=== PATIENT | female | born 1985 | race Hispanic/Latino ===

== ENCOUNTER 2018-10-17 14:22 | Emergency (ER) | payer SELFPAY ==
[2018-10-17] MEDS ORDERED: NA CHLORIDE 0.9% 1,000 ML ONE (15:11)
[2018-10-17] MEDS ORDERED: MORPHINE 2 MG/ML SYR ONE (15:11)
[2018-10-17] MEDS ORDERED: ONDANSETRON 4 MG/2 ML VIAL ONE (15:11)
[2018-10-17 15:34] LABS: ALT/SGPT 22 U/L (12-78); AST/SGOT 16 U/L (15-37); Albumin 4.2 g/dL (3.4-5.0); Alkaline Phosphatase 80 U/L (45-117); BUN Blood Urea Nitrogen 10 mg/dL (7-18); Bicarbonate 26 mmol/L (21-32); Bilirubin Direct 0.1 mg/dL (0-0.2); Bilirubin Total 0.4 mg/dL (0.2-1.0); Glucose Level 91 mg/dL (74-106); Lipase 58 U/L (73-393); Potassium 4.1 mmol/L (3.5-5.1); Sodium Level 142 mmol/L (136-145)
[2018-10-17 15:38] LABS: Absolute Lymphocytes (CBC) 1.4 K/uL (0.7-4.9); Absolute Monocytes 0.5 K/uL (0.1-1.3); Absolute Neutrophil 3.9 K/uL (1.8-8.0); Basophils % 0.8 % (0-1.3); Eosinophils % 3.5 % (0-4.4); Hematocrit 36.7 % (36.0-45.0); Monocytes % 8.2 % (3.3-12.3); RBC Red Blood Cell Count 4.75 M/uL (3.86-4.86)
[2018-10-17 17:40] LABS: Urine Blood 1+ (NEG); Urine Glucose NEGATIVE (NEG); Urine Protein TRACE (NEG); Urine pH 7.5 (5.0-7.0)
--- NOTE | 2018-10-17 17:52 | RAD REPORT ---
EXAM DESCRIPTION: CT - Abdomen Pelvis W Contrast - 10/17/2018 5:36 pm CLINICAL HISTORY: Abdominal pain. COMPARISON: 2016 TECHNIQUE: Computed axial tomography of the abdomen and pelvis was obtained. 100 cc Isovue-300 is ad ministered intravenously. Oral contrast was given. All CT scans are performed using dose optimization technique as appropriate and may include automated exposure control or mA/KV adjustment according to patient size. FINDINGS: The liver, spleen, pancreas, adrenals and kidneys appear unremarkable. The appendix is normal caliber. There is no evidence of diverticulitis An adnexal mass is not noted. Tiny umbilical hernia IMPRESSION: No acute abnormality displayed
--- NOTE | 2018-10-17 17:55 | ER ---
Nurse's Notes [facility] Name: Kacie Naqvi Age: 32 yrs Sex: Female : 1985 Arrival Date: 10/17/2018 Time: 14:25 Bed 23 Private MD: Diagnosis: Generalized abdominal pain Presentation: 10/17 14:28 Presenting complaint: Patient states: Sharp stabbing pain that began around 1PM with la1 nausea. Transition of care: patient was not received from another setting of care. Onset of symptoms was October 17, 2018. Risk Assessment: Do you want to hurt yourself or someone else? Patient reports no desire to harm self or others. Initial Sepsis Screen: Does the patient meet any 2 criteria? No. Patient's initial sepsis screen is negative. Does the patient have a suspected source of infection? No. Patient's initial sepsis screen is negative. Care prior to arrival: None. 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 - Social history:: Smoking status: Patient/guardian denies using tobacco. - Ebola Screening: : No symptoms or risks identified at this time. Screenin:47 Abuse screen: Denies threats or abuse. Denies injuries from another. Nutritional rv screening: No deficits noted. Tuberculosis screening: No symptoms or risk factors identified. Fall Risk None identified. Assessment: 14:46 General: Appears in no apparent distress. uncomfortable, Behavior is calm, cooperative. rv Pain: Complains of pain in right lower quadrant Pain radiates to lumbar area, left low back and right low back. Neuro: Level of Consciousness is awake, alert, obeys commands, Oriented to person, place, time, situation. Cardiovascular: Capillary refill < 3 seconds. Respiratory: Airway is patent. GI: Bowel sounds present X 4 quads. Abd is soft Abdomen is tender to palpation in right lower quadrant. : No signs and/or symptoms were reported regarding the genitourinary system. EENT: No signs and/or symptoms were reported regarding the EENT system. Derm: Skin is intact. Musculoskeletal: No signs and/or symptoms reported regarding the musculoskeletal system. 16:00 Reassessment: Patient appears in no apparent distress at this time. Patient and/or rv family updated on plan of care and expected duration. Pain level reassessed. Patient is alert, oriented x 3, equal unlabored respirations, skin warm/dry/pink. FINISHED ORAL CONTRAST. Vital Signs: 14:29 BP 110 / 73; Pulse 79; Resp 20; Temp 97.4(O); Pulse Ox 100% on R/A; Weight 58.97 kg; la1 Height 4 ft. 11 in. (149.86 cm); 15:30 BP 119 / 81; Pulse 77; Resp 17; Pulse Ox 100% on R/A; rv 16:14 BP 108 / 72; Pulse 66; Resp 16; Pulse Ox 100% ; lt1 17:00 BP 103 / 72 RA; Pulse 65; Resp 16 S; Pulse Ox 100% on R/A; rv 18:00 BP 105 / 63 RA; Pulse 69; Resp 15 S; Pulse Ox 98% on R/A; rv 14:29 Body Mass Index 26.26 (58.97 kg, 149.86 cm) la1 ED Course: 14:25 Patient arrived in ED. mr 14:29 Triage completed. la1 14:30 Arm band placed on right wrist. la1 14:32 [facility]C [facility]. kb 14:32 Kirk Cook MD is Attending Physician. kb 14:48 Patient has correct armband on for positive identification. Bed in low position. Call rv light in reach. Side rails up X 1. Adult w/ patient. Pulse ox on. NIBP on. 15:00 Radiology exam delayed due to lab results not completed at this time. (BUN/Creatinine) vr IV insertion attempt and/or patient not having appropriate IV at this time. 15:00 Inserted saline lock: 22 gauge in left antecubital area, using aseptic technique. Blood rv collected. 17:36 CT Abd/Pelvis - W/Contrast In Process Unspecified. EDMS 17:41 CT completed. Patient tolerated procedure well. Patient moved back from CT. vr 18:15 No provider procedures requiring assistance completed. IV discontinued, bleeding rv controlled, No redness/swelling at site. Pressure dressing applied. Administered Medications: 15:00 Drug: NS 0.9% 1000 ml Route: IV; Rate: 1000 ml; Site: left antecubital; rv 16:25 Follow up: IV Status: Completed infusion rv 15:03 Drug: Zofran 4 mg Route: IVP; Site: left antecubital; rv 16:25 Follow up: Response: No adverse reaction; Nausea is decreased rv 15:05 Drug: morphine 2 mg Route: IVP; Site: left antecubital; rv 16:25 Follow up: Response: Pain is decreased rv Outcome: 17:55 Discharge ordered by . kb 18:16 Discharged to home ambulatory. rv 18:16 Condition: good 18:16 Discharge instructions given to patient, Instructed on discharge instructions, follow up and referral plans. medication usage, Demonstrated understanding of instructions, follow-up care, medications, Prescriptions given X 2. 18:16 Patient left the ED. rv Signatures: Dispatcher [employer] EDMS Pam Katz, GELACIO LUGOP-Martha Yanes mr Hendrickson, Tegan vr Robert Hardin, RN RN la1 Edwin Jiménez RN Jud Morris Caryl
--- NOTE | 2018-10-17 17:55 | EDPHYS ---
Physician Documentation [facility] Name: Kacie Naqvi Age: 32 yrs Sex: Female : 1985 Arrival Date: 10/17/2018 Time: 14:25 Bed 23 Private MD: ED Physician Kirk Cook HPI: 10/17 16:07 This 32 yrs old Female presents to ER via Ambulatory with complaints of kb Abdominal Pain, Nausea. 16:07 The patient presents with abdominal pain right lower quadrant. Onset: The kb symptoms/episode began/occurred today, at 13:00. The symptoms do not radiate. Associated signs and symptoms: Pertinent positives: diarrhea, fever, nausea. The symptoms are described as constant, sharp. Modifying factors: The symptoms are alleviated by nothing, the symptoms are aggravated by pressure. Severity of pain: At its worst the pain was moderate in the emergency department the pain is unchanged. The patient has not experienced similar symptoms in the past. The patient has not recently seen a physician. Pt reports diarrhea once last night with fever and chills. Reports abd pain and nausea started at 1300 today.. 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 - Social history:: Smoking status: Patient/guardian denies using tobacco. - Ebola Screening: : No symptoms or risks identified at this time. ROS: 16:06 ENT: Negative for injury, pain, and discharge, Neck: Negative for injury, pain, and kb swelling, Cardiovascular: Negative for chest pain, palpitations, and edema, Respiratory: Negative for shortness of breath, cough, wheezing, and pleuritic chest pain, Back: Negative for injury and pain, MS/Extremity: Negative for injury and deformity, Skin: Negative for injury, rash, and discoloration, Neuro: Negative for headache, weakness, numbness, tingling, and seizure. 16:06 Constitutional: Positive for chills, fever, Negative for body aches, fatigue, malaise, poor PO intake, weight loss. 16:06 Abdomen/GI: Positive for abdominal pain, nausea, diarrhea. Exam: 16:06 Constitutional: This is a well developed, well nourished patient who is awake, alert, kb and in no acute distress. Head/Face: Normocephalic, atraumatic. ENT: Nares patent. No nasal discharge, no septal abnormalities noted. Tympanic membranes are normal and external auditory canals are clear. Oropharynx with no redness, swelling, or masses, exudates, or evidence of obstruction, uvula midline. Mucous membranes moist. Neck: Trachea midline, no thyromegaly or masses palpated, and no cervical lymphadenopathy. Supple, full range of motion without nuchal rigidity, or vertebral point tenderness. No Meningismus. Chest/axilla: Normal chest wall appearance and motion. Nontender with no deformity. No lesions are appreciated. Cardiovascular: Regular rate and rhythm with a normal S1 and S2. No gallops, murmurs, or rubs. Normal PMI, no JVD. No pulse deficits. Respiratory: Lungs have equal breath sounds bilaterally, clear to auscultation and percussion. No rales, rhonchi or wheezes noted. No increased work of breathing, no retractions or nasal flaring. Back: No spinal tenderness. No costovertebral tenderness. Full range of motion. Skin: Warm, dry with normal turgor. Normal color with no rashes, no lesions, and no evidence of cellulitis. MS/ Extremity: Pulses equal, no cyanosis. Neurovascular intact. Full, normal range of motion. Neuro: Awake and alert, GCS 15, oriented to person, place, time, and situation. Cranial nerves II-XII grossly intact. Motor strength 5/5 in all extremities. Sensory grossly intact. Cerebellar exam normal. Normal gait. 16:06 Abdomen/GI: Inspection: abdomen appears normal, Bowel sounds: normal, in all quadrants, Palpation: soft, in all quadrants, mild abdominal tenderness, in the right upper quadrant, moderate abdominal tenderness, in the right lower quadrant. Vital Signs: 14:29 BP 110 / 73; Pulse 79; Resp 20; Temp 97.4(O); Pulse Ox 100% on R/A; Weight 58.97 kg; la1 Height 4 ft. 11 in. (149.86 cm); 15:30 BP 119 / 81; Pulse 77; Resp 17; Pulse Ox 100% on R/A; rv 16:14 BP 108 / 72; Pulse 66; Resp 16; Pulse Ox 100% ; lt1 17:00 BP 103 / 72 RA; Pulse 65; Resp 16 S; Pulse Ox 100% on R/A; rv 18:00 BP 105 / 63 RA; Pulse 69; Resp 15 S; Pulse Ox 98% on R/A; rv 14:29 Body Mass Index 26.26 (58.97 kg, 149.86 cm) la1 MDM: 14:43 Patient medically screened. kb 16:06 Data reviewed: vital signs, nurses notes. Data interpreted: Pulse oximetry: on room air kb is 100 %. Interpretation: normal. 17:54 Counseling: I had a detailed discussion with the patient and/or guardian regarding: the kb historical points, exam findings, and any diagnostic results supporting the discharge/admit diagnosis, lab results, radiology results, the need for outpatient follow up, a family practitioner, to return to the emergency department if symptoms worsen or persist or if there are any questions or concerns that arise at home. 10/17 14:48 Order name: Basic Metabolic Panel; Complete Time: 15:35 kb 10/17 14:48 Order name: CBC with Diff; Complete Time: 16:05 kb 10/17 14:48 Order name: Hepatic Function; Complete Time: 15:35 kb 10/17 14:48 Order name: Lipase; Complete Time: 15:35 kb 10/17 14:48 Order name: Urine Dipstick--Ancillary (enter results); Complete Time: 17:44 ms 10/17 14:48 Order name: Urine --Ancillary (enter results); Complete Time: 17:44 ms 10/17 14:48 Order name: IV Saline Lock; Complete Time: 15:10 kb 10/17 14:48 Order name: Labs collected and sent; Complete Time: 15:10 kb 10/17 14:48 Order name: CT Abd/Pelvis - W/Contrast; Complete Time: 17:53 kb Administered Medications: 15:00 Drug: NS 0.9% 1000 ml Route: IV; Rate: 1000 ml; Site: left antecubital; rv 16:25 Follow up: IV Status: Completed infusion rv 15:03 Drug: Zofran 4 mg Route: IVP; Site: left antecubital; rv 16:25 Follow up: Response: No adverse reaction; Nausea is decreased rv 15:05 Drug: morphine 2 mg Route: IVP; Site: left antecubital; rv 16:25 Follow up: Response: Pain is decreased rv Disposition: 10/17/18 17:55 Discharged to Home. Impression: Generalized abdominal pain. - Condition is Stable. - Discharge Instructions: Abdominal Pain, Adult, [id number]. - Prescriptions for Bentyl 20 mg Oral Tablet - take 1 tablet by ORAL route every 6 hours As needed; 20 tablet. Zofran 4 mg Oral Tablet - take 1 tablet by ORAL route every 6 hours As needed; 20 tablet. - Medication Reconciliation Form, Thank You Letter, Antibiotic Education, Prescription Opioid Use form. - Follow up: Emergency Department; When: As needed; Reason: Worsening of condition. Follow up: Private Physician; When: 2 - 3 days; Reason: Recheck today's complaints, Continuance of care, Re-evaluation by your physician. Addendum: 10/21/2018 21:54 Co-signature as Attending Physician, Kirk Cook MD. g s Signatures: Dispatcher [employer] EDAZ Pam Katz, HARDBOARD COATING MACHINE OPERATOR-C HARDBOARD COATING MACHINE OPERATOR-CkRobert Haque RN RN la1 Kirk Cook MD MD Edwin Jiménez, RN RN rv Corrections: (The following items were deleted from the chart) 10/17 18:16 17:55 10/17/2018 17:55 Discharged to Home. Impression: Generalized abdominal pain. rv Condition is Stable. Forms are Medication Reconciliation Form, Thank You Letter, Antibiotic Education, Prescription Opioid Use. Follow up: Emergency Department; When: As needed; Reason: Worsening of condition. Follow up: Private Physician; When: 2 - 3 days; Reason: Recheck today's complaints, Continuance of care, Re-evaluation by your physician. kb
[2018-10-17 19:21] VITALS: TEMP 97.4
[2018-10-17 19:26] VITALS: BP 105/63; O2SAT 98
== END 2018-10-17 18:16 | disposition home or self-care (01) ==
LOC: ER 14:22
DX: R10.84 Generalized abdominal pain (principal); J45.909 Unspecified asthma, uncomplicated
CPT/HCPCS: 36415; 74177; 80048; 80076; 81003; 81025; 83690; 85025; 96361; 96374; 96375; 99284; J2270; J2405; J7030; Q9967

== ENCOUNTER 2018-11-11 20:23 | Emergency (ER) | payer BC, SELFPAY ==
[2018-11-11 21:28] LABS: Absolute Lymphocytes (CBC) 1.6 K/uL (0.7-4.9); Absolute Monocytes 0.4 K/uL (0.1-1.3); Absolute Neutrophil 4.5 K/uL (1.8-8.0); Basophils % 0.5 % (0-1.3); Eosinophils % 3.5 % (0-4.4); Hematocrit 34.5 % (36.0-45.0); Lymphocytes % 23.8 % (15.3-44.8); MPV 9.1 fL (7.6-11.3); Monocytes % 6.2 % (3.3-12.3); RBC Red Blood Cell Count 4.39 M/uL (3.86-4.86)
[2018-11-11 21:38] LABS: Urine Blood 3+ (NEG); Urine Glucose NEGATIVE (NEG); Urine Protein TRACE (NEG); Urine Specific Gravity 1.025 (1.005-1.030); Urine pH 6.5 (5.0-7.0)
[2018-11-11 21:45] LABS: BUN Blood Urea Nitrogen 16 mg/dL (7-18); Bicarbonate 28 mmol/L (21-32); Glucose Level 100 mg/dL (74-106); Potassium 3.7 mmol/L (3.5-5.1); Sodium Level 140 mmol/L (136-145)
[2018-11-11 21:46] LABS: HCG, Quantitative < 1 mIU/mL (1-3)
--- NOTE | 2018-11-11 22:51 | EDPHYS ---
Physician Documentation [facility] Name: Kacie Naqvi Age: 32 yrs Sex: Female : 1985 Arrival Date: 11/11/2018 Time: 20:25 Bed 14 Private MD: ED Physician Jono Sandoval HPI: 11/11 21:05 This 32 yrs old Female presents to ER via Ambulatory with complaints of cp Vaginal Bleeding. 21:05 The patient presents with vaginal bleeding that is light, with no clots. cp 21:05 Onset: The symptoms/episode began/occurred today. Associated signs and symptoms: cp Pertinent negatives: diarrhea, fever, urinary frequency. Severity of symptoms: in the emergency department the symptoms are unchanged, despite home interventions. 21:05 The patient's method of control includes tubal ligation. 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 - Social history:: Smoking status: Patient/guardian denies using tobacco. - Ebola Screening: : Patient denies travel to an Ebola-affected area in the 21 days before illness onset. ROS: 21:10 Constitutional: Negative for body aches, chills, fever, poor PO intake. cp 21:10 Eyes: Negative for injury, pain, redness, and discharge. cp 21:10 ENT: Negative for drainage from ear(s), ear pain, sore throat, difficulty swallowing, difficulty handling secretions. 21:10 Cardiovascular: Negative for chest pain, edema, palpitations. 21:10 Respiratory: Negative for cough, shortness of breath, wheezing. 21:10 Abdomen/GI: Positive for abdominal cramps, Negative for vomiting, diarrhea, constipation, anorexia, black/tarry stool, rectal bleeding. 21:10 : Positive for vaginal bleeding, Negative for urinary symptoms. 21:10 Neuro: Negative for altered mental status, dizziness, syncope, weakness. 21:10 All other systems are negative. Exam: 21:15 Constitutional: The patient appears in no acute distress, alert, awake, non-toxic, well cp developed, well nourished. 21:15 Head/Face: Normocephalic, atraumatic. cp 21:15 Eyes: Periorbital structures: appear normal, Conjunctiva: normal, no exudate, no injection, Sclera: no appreciated abnormality, Lids and lashes: appear normal, bilaterally. 21:15 ENT: External ear(s): are unremarkable, Nose: is normal, Mouth: Lips: moist, Oral mucosa: pink and intact, moist, Posterior pharynx: Airway: no evidence of obstruction, patent. 21:15 Chest/axilla: Inspection: normal, Palpation: is normal. 21:15 Cardiovascular: Rate: normal, Rhythm: regular. 21:15 Respiratory: the patient does not display signs of respiratory distress, Respirations: normal, no use of accessory muscles, no retractions, no splinting, no tachypnea, labored breathing, is not present, Breath sounds: are clear throughout, no decreased breath sounds, no stridor, no wheezing. 21:15 Abdomen/GI: Inspection: abdomen appears normal, Bowel sounds: active, all quadrants, Palpation: abdomen is soft and non-tender, in all quadrants, voluntary guarding, is not appreciated, involuntary guarding, is not appreciated. 21:15 Back: CVA tenderness, is absent. 22:37 : Pelvic Exam: The exam is refused by the patient/guardian. The risks and cp consequences are understood by the patient. Vital Signs: 20:37 BP 129 / 83; Pulse 99; Resp 18; Temp 98.7; Pulse Ox 98% on R/A; Weight 61.23 kg (R); aj1 Height 4 ft. 11 in. (149.86 cm) (R); Pain 2/10; 21:00 BP 121 / 79; Pulse 85; Resp 18; Pulse Ox 98% on R/A; lp1 22:15 BP 105 / 72; Pulse 87; Resp 16; Pulse Ox 99% on R/A; lp1 22:45 BP 115 / 76; Pulse 84; Resp 16; Pulse Ox 98% on R/A; lp1 20:37 Body Mass Index 27.27 (61.23 kg, 149.86 cm) aj1 MDM: 20:48 Patient medically screened. cp 21:15 Differential diagnosis: ectopic , endometriosis, menometrorrhagia, ovarian cp cyst, pelvic inflammatory disease, ruptured ectopic , uterine fibroids, urinary tract infection. 22:48 Data reviewed: vital signs, nurses notes, lab test result(s), radiologic studies, cp ultrasound, and as a result, I will discharge patient. 22:50 Counseling: I had a detailed discussion with the patient and/or guardian regarding: the cp historical points, exam findings, and any diagnostic results supporting the discharge/admit diagnosis, lab results, radiology results, the need for outpatient follow up, an OB/Gyne specialist, to return to the emergency department if symptoms worsen or persist or if there are any questions or concerns that arise at home. 11/11 21:00 Order name: Urine Dipstick--Ancillary (enter results); Complete Time: 21:44 cm6 11/11 21:00 Order name: Urine --Ancillary (enter results); Complete Time: 21:44 cm6 11/11 21:02 Order name: Quantitative Hcg; Complete Time: 22:30 cp 11/11 21:02 Order name: Basic Metabolic Panel; Complete Time: 22:30 cp 11/11 21:02 Order name: CBC with Diff; Complete Time: 21:44 cp 11/11 21:44 Interpretation: Normal except: HGB 11.4; HCT 34.5; MCV 78.5; MCH 26.1. cp 11/11 21:26 Order name: US Transvaginal Study (Probe) 11/11 21:02 Order name: IV Saline Lock; Complete Time: 21:24 cp 11/11 21:02 Order name: Labs collected and sent; Complete Time: 21:24 cp 11/11 21:02 Order name: NPO; Complete Time: 21:10 cp 11/11 21:02 Order name: Urine Dipstick-Ancillary (obtain specimen); Complete Time: 21:07 cp Administered Medications: No medications were administered Disposition: 11/12 07:00 Co-signature as Attending Physician, Jono Sandoval MD I agree with the assessment and apoorva plan of care. Disposition: 11/11/18 22:50 Discharged to Home. Impression: Abnormal uterine and vaginal bleeding, unspecified. - Condition is Stable. - Discharge Instructions: Abnormal Uterine Bleeding. - Medication Reconciliation Form, Thank You Letter, Antibiotic Education, Prescription Opioid Use form. - Follow up: Private Physician; When: 2 - 3 days; Reason: Recheck today's complaints. - Problem is new. - Symptoms are unchanged. Signatures: Dispatcher [employer] EDLoren Muse, RN RN aj1 Jono Sandoval MD MD cha Pena, Laura, RN RN lp1 Jono Asencio PA PA cp Corrections: (The following items were deleted from the chart) 11/11 23:16 22:50 11/11/2018 22:50 Discharged to Home. Impression: Abnormal uterine and vaginal lp1 bleeding, unspecified. Condition is Stable. Forms are Medication Reconciliation Form, Thank You Letter, Antibiotic Education, Prescription Opioid Use. Follow up: Private Physician; When: 2 - 3 days; Reason: Recheck today's complaints. Problem is new. Symptoms are unchanged. cp
--- NOTE | 2018-11-11 22:51 | ER ---
Nurse's Notes [facility] Name: Kacie Naqvi Age: 32 yrs Sex: Female : 1985 Arrival Date: 11/11/2018 Time: 20:25 Bed 14 Private MD: Diagnosis: Abnormal uterine and vaginal bleeding, unspecified Presentation: 11/11 20:35 Presenting complaint: Patient states: "I was at [employer] and I just started bleeding, its aj1 not my period because I just had it a week ago, but also my period wasn't normal. It was shorter than normal, and it wasn't as heavy." Reports vaginal bleeding started today less than 10 minutes ago. Reports light vaginal bleeding. Transition of care: patient was not received from another setting of care. Onset of symptoms was November 11, 2018. Risk Assessment: Do you want to hurt yourself or someone else? Patient reports no desire to harm self or others. Initial Sepsis Screen: Does the patient meet any 2 criteria? No. Patient's initial sepsis screen is negative. Does the patient have a suspected source of infection? No. Patient's initial sepsis screen is negative. Care prior to arrival: None. 20:35 Method Of Arrival: Ambulatory aj1 20:35 Acuity: DEIRDRE 4 aj1 Triage Assessment: 20:37 General: Appears in no apparent distress. comfortable, Behavior is calm, cooperative, aj1 appropriate for age. Pain: Complains of pain in pelvis Pain currently is 2 out of 10 on a pain scale. Quality of pain is described as crampy. Neuro: Level of Consciousness is awake, alert, obeys commands. Cardiovascular: Patient's skin is warm and dry. Respiratory: Airway is patent Respiratory effort is even, unlabored, Respiratory pattern is regular, symmetrical. : Reports vaginal bleeding that is light flow, for the past 10 minutes. 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 - Social history:: Smoking status: Patient/guardian denies using tobacco. - Ebola Screening: : Patient denies travel to an Ebola-affected area in the 21 days before illness onset. Screenin:04 Abuse screen: Denies threats or abuse. Denies injuries from another. Nutritional lp1 screening: No deficits noted. Tuberculosis screening: No symptoms or risk factors identified. Fall Risk None identified. Assessment: 21:01 General: Appears in no apparent distress. Behavior is calm, cooperative, appropriate lp1 for age. Pain: Complains of pain in suprapubic area Quality of pain is described as crampy. Neuro: Level of Consciousness is awake, alert, obeys commands. Cardiovascular: Patient's skin is warm and dry. Respiratory: Respiratory effort is even, unlabored. GI: Abdomen is non-distended. : Reports vaginal bleeding that is spotty. EENT: No deficits noted. Derm: Skin is pink, warm \\T\\ dry. Musculoskeletal: No deficits noted. 22:10 Reassessment: Patient appears in no apparent distress at this time. Patient is alert, lp1 oriented x 3, equal unlabored respirations, skin warm/dry/pink. Patient returned from CT at this time. Vital Signs: 20:37 BP 129 / 83; Pulse 99; Resp 18; Temp 98.7; Pulse Ox 98% on R/A; Weight 61.23 kg (R); aj1 Height 4 ft. 11 in. (149.86 cm) (R); Pain 2/10; 21:00 BP 121 / 79; Pulse 85; Resp 18; Pulse Ox 98% on R/A; lp1 22:15 BP 105 / 72; Pulse 87; Resp 16; Pulse Ox 99% on R/A; lp1 22:45 BP 115 / 76; Pulse 84; Resp 16; Pulse Ox 98% on R/A; lp1 20:37 Body Mass Index 27.27 (61.23 kg, 149.86 cm) aj1 ED Course: 20:25 Patient arrived in ED. am2 20:37 Triage completed. aj1 20:37 Arm band placed on. aj1 20:40 Clarice Cordero RN is Primary Nurse. lp1 20:48 Jono Asencio PA is PHCP. cp 20:48 Jono Sandoval MD is Attending Physician. cp 21:04 Patient has correct armband on for positive identification. Placed in gown. lp1 21:24 Inserted saline lock: 20 gauge in right antecubital area, using aseptic technique. lp1 Blood collected. By BLUE Garzon. 21:52 Patient taken to ultrasound. via wheelchair. lp1 21:56 US Transvaginal Study (Probe) In Process Unspecified. EDMS 23:00 No provider procedures requiring assistance completed. IV discontinued, No lp1 redness/swelling at site. Pressure dressing applied. Administered Medications: No medications were administered Outcome: 22:50 Discharge ordered by MD. cp 23:00 Discharged to home ambulatory. lp1 23:00 Condition: good 23:00 Discharge instructions given to patient, Instructed on discharge instructions, follow up and referral plans. Demonstrated understanding of instructions, follow-up care. 23:16 Patient left the ED. lp1 Signatures: Dispatcher [employer] EDMS Loren Jane RN RN aj1 Clarice Cordero RN RN lp1 Jono Asencio PA PA Francia Lamar
[2018-11-11 23:54] VITALS: TEMP 98.7
[2018-11-11 23:58] VITALS: BP 115/76; O2SAT 98
--- NOTE | 2018-11-12 06:59 | RAD REPORT ---
EXAM DESCRIPTION: US - Transvaginal Study Probe - 11/11/2018 9:55 pm CLINICAL HISTORY: Pelvic pain, vaginal bleeding Preliminary findings provided the time of the study. COMPARISON: CT examination October 17, 2018 TECHNIQUE: Endovaginal sonography was performed. FINDINGS: Endometrium is 6 mm in thickness. No focal endometrial polyp or mass seen. No myometrial m ass. Uterus is 7.4 x 5.0 x 5.1 cm. No blood or fluid in the cul de sac. Left ovary is normal size and demonstrates small cysts or follicles. No dominant solid or cystic left ovarian or left adnexal finding. Right ovary was nonvisualized. No right adnexal mass. CT study shows far lateral positioning of the r ight ovary. No right ovarian mass or abnormality seen at that time. IMPRESSION: Uterus, left ovary and left adnexa unremarkable. Nonvisualization of the right ovary. No right adnexal mass.
== END 2018-11-11 23:16 | disposition home or self-care (01) ==
LOC: ER 20:23
DX: N93.9 Abnormal uterine and vaginal bleeding, unspecified (principal)
CPT/HCPCS: 36415; 76830; 80048; 81003; 81025; 84702; 85025; 99284

== ENCOUNTER 2022-04-21 17:37 | Emergency (ER) | payer OTHER, SELFPAY ==
[2022-04-21] MEDS ORDERED: DIAZEPAM 10 MG/2 ML INJ SYRINGE ONE (18:20)
[2022-04-21] MEDS ORDERED: dexAMETHasone 10 MG/ML VIAL ONE (18:21)
[2022-04-21] MEDS ORDERED: KETOROLAC 30 MG/ML INJ ONE (18:21)
--- OUTSIDE RECORDS SUMMARY | 2022-04-21 18:31 | XMS REPORT | Continuity of Care Document ---
:[address] [facility] t Address [address] [place] [address] [address]. [address] [place] [address] Care Team Providers Name Role Phone Shefali Gayle Attending Clinician Payers Payer Name Policy Type Policy Number Effective Date Expiration Date Leonard CAMPOS II [id number] 2015 00:00:00 Problems Condition Condition Condition Status Onset Resolution Last Treating Co mments Source Name Details Category Date Date Treatment Clinician Date Anemia of Anemia of Disease Active 2015-07 Uni vers mother in mother in 0-21 [place] dical condition condition Bran ch Disease Active 2015-07 U nivers care and care and 0-21 [place] of examin[place] of [place] of 00 Medical lactating lactating Bran ch mother mother History of History of Disease Active U nivers tubal tubal 7-08 ity of ligation ligation 00:00: [place] [facility] Asthma Asthma Disease Active Overview: Univer s 4-07 ICD10 ity of 00:00: Diagnosis [place] 00 Term 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 Hand Branch Utility Generalize Generalize Disease Active U nivers d anxiety d anxiety 4-07 ity of disorder disorder 00:00: [place] 00 Medical Branch Allergies, Adverse Reactions, Alerts Allergy Allergy Status Severity Reaction(s) Onset Inactive Treating Comm ents Source Name Type Date Date Clinician Latex Propensi Active Rash Univers ty to 04-22 ity of adverse 00:00: [place] reaction 00 Medical s Branch LATEX DRUG Active Rash Univers INGREDI 04-22 ity of 00:00: [place] 00 Medical Branch Social History Social Habit Start Date Stop Date Quantity Comments Source Sex Assigned At [facility] [place] [facility] [place] [facility] Alcohol intake 2017-04-29 2017-04-29 University of 00:00:00 00:00:[address] [facility] Alcohol Comment 2014-10-31 2014-10-31 socially only Univer sity of 00:00:00 00:00:00 prior to [facility] Smoking Status Start Date Stop Date Source Never smoker [facility] Medications Ordered Filled Start Stop Current Ordering Indication Dosage Frequency Signature Comments Components Source Medication Medication Date Date Medication? Clinician (SIG) Name Name iohexol 2020- No 120mL 120 mL, Unive rs (OMNIPAQUE 02-24 Intravenou it y of 350 04:15: 04:15 s, ONCE, 1 [place] BULK-150 00 :00 dose, Amy Medica l mL) 02/24/20 at Branch injection 2315, 120 mL Routine ibuprofen Yes [id number] 800mg Take 1 U nivers 800 mg 7-30 tablet by ity of tablet 00:00: mouth [place] 00 every 6 Medical (six) Branch hours as needed for Pain (scale 1-3) or Pain (scale 4-6). ondansetron Yes [id number] 4mg Take 1 Univers 4 mg 7-30 tablet by ity of disintegrat 00:00: mouth [place] ing tablet 00 every 8 Medica l (eight) Branch hours as needed for Nausea and Vomiting (N/V). dicyclomine Yes [id number] 20mg Take 1 Univers 20 mg 7-30 tablet by ity of tablet 00:00: mouth 4 [place] 00 (four) Medical times Branch daily as needed for Abdominal pain. dicyclomine 0 2020- No [id number] 20mg Take 1 Univers 20 mg 7-30 07-30 tablet by ity of tablet 00:00: 00:00 mouth 4 [place] 00 :00 (four) Medical times Branch daily as needed for Abdominal pain. ALBUTEROL 2016-07 Yes Inhale. Unive rs INHALE 0-04 ity of 00:05: [place] 12 [facility] docusate 2015-07 Yes 100mg Take 1 Univer s (COLACE) 0-27 capsule by ity o f 100 mg 00:00: mouth [place] capsule 00 daily. Medical Branch acetaminoph 2015-07 Yes 1{tbl} Take 1 Un jareth en-codeine 0-27 tablet by ity of (TYLENOL-CO 00:00: mouth [place] DEINE #3) 00 every 4 Medical 300-30 mg (four) Branch tablet hours as needed for Pain (scale 7-10). cephALEXin 2015-07 Yes 500mg Take 1 Univ ers (KEFLEX) 0-27 capsule by ity o f 500 mg 00:00: mouth 4 [place] capsule 00 (four) Medical times Branch daily. Yes 1{tbl} Take 1 Unive rs vitamin 9-29 tablet by ity of w/FA 00:00: mouth [place] (PRENATABS 00 daily. Medical RX) tablet Branch docusate Yes 240mg Take 1 Univer s calcium 9-29 capsule by ity of (SURFAK) 00:00: mouth once [place] as 240 mg 00 daily as Medical capsule needed for Branch Constipati on. ferrous Yes 325mg Take 1 Univers sulfate 325 9-29 tablet by ity of mg (65 mg 00:00: mouth 2 [place] iron) 00 (two) Medical tablet times Branch daily. acetaminoph Yes 1{tbl} Take 1-2 Univers en-codeine 9-29 tablets by ity of (TYLENOL 00:00: mouth [place] #3) 300-30 00 every 6 Medica l mg tablet (six) Branch hours as needed for Pain (scale 1-3) or Pain (scale 4-6). For patients < 12 years recommend do not exceed 5 doses or 2.6 gm in 24 hours totals for all acetaminop hen containing products. For adults with normal hepatic function recommend do not exceed 3 grams in 24 hours for all acetaminop hen containing products. foLIC acid Yes 1mg Take 1 Unive rs (FOLATE) 1 - tablet by ity of mg tablet 00:00: mouth [place] 00 daily. Medical Branch enoxaparin Yes 70.5mg inject Uni vers (LOVENOX) 04-25 0.47 mL ity of 150 mg/mL 00:00: under the Alen as injection 00 skin every Medi guerline 12 Branch (twelve) hours. ibuprofen 2020- No 600mg Take 1 Univ ers (MOTRIN) 9- 07-30 tablet by ity o f 600 mg 00:00: 00:00 mouth [place] tablet 00 :00 every 6 Medical (six) Branch hours as needed for Pain (scale 4-6). Take with food or milk. Immunizations Ordered Filled Immunization Date Status Comments Dom sharma Immunization Name Name TDAP 2016-02-23 Completed [facility] 00:00:[address] [facility] Vital Signs Vital Name Observation Time Observation Value Comments Source Systolic blood 2020-02-25 04:30:00 126 mm[Hg] [facility] Diastolic blood 2020-02-25 04:30:00 73 mm[Hg] [facility] [place] Heart rate 2020-02-25 04:30:00 88 /min [facility] Respiratory rate 2020-02-25 04:30:00 20 /min [facility] Oxygen saturation in 2020-02-25 04:30:00 98 /min [facility] Arterial blood by [facility] Pulse oximetry [place] Body temperature 2020-02-25 03:00:00 36.67 Rebecca [facility] Body height 2020-02-25 01:15:00 149.9 cm [facility] Body weight 2020-02-25 01:15:00 63.504 kg [facility] BMI 2020-02-25 01:15:00 28.28 kg/m2 [facility] Procedures Procedure Date / Time Performed Performing Clinician Dom sharma CT ABDOMEN PELVIS W 2020-02-25 04:09:35 Shefali Novoa [facility] BASIC METABOLIC PANEL 2020-02-25 02:54:00 Shefali Novoa [facility] (NA, K, CL, CO2, Medical Branch GLUCOSE, BUN, CREATININE, CA) CBC WITH DIFF 2020-02-25 02:54:00 Shefali Novoa [place] o f [facility] POCT TEST 2020-02-25 01:31:00 Vira Wilhelm [facility] URINALYSIS 2020-02-25 01:30:00 Vira Wilhelm [facility] ASSIGNMENT OF BENEFITS 2020-02-25 01:06:05 Doctor Unassigned, No [facility] Name [facility] NOTICE OF PRIVACY 2020-02-25 01:05:52 Doctor Unassigned, No [facility] PRACTICES Name Medical Branch CONSENT/REFUSAL FOR 2020-02-25 01:05:38 Doctor Unassigned, No [facility] AND Name Medical Branch TREATMENT Encounters Start End Encounter Admission Attending Care Care Encounter Source Date/Time Date/Time Type Type Clinicians Facility Department ID 2021-05-25 Emergency [facility] [id number] Univers 09:56:53 ity of [facility] Branch 2020-02-24 2020-02-25 Emergency [facility], [facility] [id number] Univers 20:18:04 00:15:00 Shefali Gil [id number] i ty of [place] [id number] [facility] [id number] [facility] 084 Branch 2018-12-04 2018-12-04 Emergency E [facility] [id number] [facility] 17:09:00 17:09:00 Results Test Test Test Results Result Source Description Time Comments Comments CT ABDOMEN 2020-01 Normal retrocecal appendix. University PELVIS W -31 Hypoattenuating appearance of of [place] CONTRAST 04:54:5 the endometrial cavity may Medical 7 represent fluidand/or blood Branch products. Correlate with patient menstrual cycle and symptoms. Preliminary Report Dictated by Resident: Mookie Gates ?MD Negra., have reviewed this study and agree with theabove report.EXAM: CT ABDOMEN PELVIS W CONTRAST HISTORY: Abd pain, appendicitis suspected COMPARISON: None. DOSE: 291 mGy*cm TECHNIQUE AND FINDINGS: Contiguous axial imaging from the level of the lungbases through the proximal thighs was performed after the uncomplicatedadministration intravenous contrast. Coronal and sagittal reconstructionswere obtained. ?Auto mA and/or iterative reconstruction were used to reduceradiation dose. FINDINGS: LOWER THORAX: The lungs bases are clear. LIVER: Mild fatty infiltration at the falciform ligament. Otherwise, nofocal hepatic lesions identified. Normal contour. GALLBLADDER AND BILIARY TREE: No biliary ductal dilation. ?No gallbladderwall thickening. No radiopaque cholelithiasis. Gallbladder appears appearspartially contracted. PANCREAS: No ductal dilation or masses. SPLEEN: No splenomegaly. Subcentimeter nodule within the left upperquadrant likely represents a splenule (2:17-18). ADRENAL GLANDS: No adrenal nodules. KIDNEYS: No hydronephrosis, stones or masses. PERITONEUM AND RETROPERITONEUM: No free air or fluid. LYMPH NODES: No lymphadenopathy. VESSELS: Unremarkable. GI TRACT: No abnormal bowel wall thickening or dilatation. Normalretrocecal appendix. Tiny sliding-type hiatal hernia with patulous distalesophagus. PELVIS/BLADDER: Urinary bladder is normal for the degree of distention.Hypoattenuating appearance of the endometrial cavity probably representsfluid and/or blood products. Bilateral ovaries appear unremarkablepatient's age. BONES AND SOFT TISSUES: No suspicious lytic or sclerotic bony lesions. Tinyfat-containing left inguinal and umbilical hernias. [facility], Radiant Results Inft User - 02/24/2020 11:56 PM CDTEXAM: CT ABDOMEN PELVIS W CONTRASTHISTORY: Abd pain, appendicitis suspected COMPARISON: None.DOSE: 291 mGy*cmTECHNIQUE AND FINDINGS: Contiguous axial imaging from the level of the lungbases through the proximal thighs was performed after the uncomplicatedadministration intravenous contrast. Coronal and sagittal reconstructionswere obtained. Auto mA and/or iterative reconstruction were used to reduceradiation dose.FINDINGS:LOWER THORAX: The lungs bases are clear. LIVER: Mild fatty infiltration at the falciform ligament. Otherwise, nofocal hepatic lesions identified. Normal contour.GALLBLADDER AND BILIARY TREE: No biliary ductal dilation. No gallbladderwall thickening. No radiopaque cholelithiasis. Gallbladder appears appearspartially contracted.PANCREAS: No ductal dilation or masses.SPLEEN: No splenomegaly. Subcentimeter nodule within the left upperquadrant likely represents a splenule (2:17-18).ADRENAL GLANDS: No adrenal nodules.KIDNEYS: No hydronephrosis, stones or masses.PERITONEUM AND RETROPERITONEUM: No free air or fluid.LYMPH NODES: No lymphadenopathy.VESSELS: Unremarkable.GI TRACT: No abnormal bowel wall thickening or dilatation. Normalretrocecal appendix. Tiny sliding-type hiatal hernia with patulous distalesophagus.PELVIS/BLADDER : Urinary bladder is normal for the degree of distention.Hypoattenuating appearance of the endometrial cavity probably representsfluid and/or blood products. Bilateral ovaries appear unremarkablepatient's age.BONES AND SOFT TISSUES: No suspicious lytic or sclerotic bony lesions. Tinyfat-containing left inguinal and umbilical hernias.IMPRESSIONNormal retrocecal appendix.Hypoattenuating appearance of the endometrial cavity may represent fluidand/or blood products. Correlate with patient menstrual cycle and symptoms.Preliminary Report Dictated by Resident: Mookie Landa MD., have reviewed this study and agree with theabove report. BASIC METABOLIC PANEL (NA, K, CL, CO2, GLUCOSE, BUN, 2020-01 03:12:00 CREATININE, CA) Test Item Value Reference Range Interpretation Comme nts NA (test code = 7905445351) 135 mmol/L 135-145 K (test code = 5904270638) 5.4 mmol/L 3.5-5 H CL (test code = 6378576194) 104 mmol/L 98-108 CO2 TOTAL (test code = 2608304072) 24 mmol/L 23-31 AGAP (test code = 8147086179) 2-16 BUN (test code = 6956917608) 12 mg/dL 7-23 GLUCOSE (test code = 6299556938) 102 mg/dL 70-110 CREATININE (test code = 0.49 mg/dL 0.5-1.04 L 4533028348) CALCIUM (test code = 5238312409) 8.7 mg/dL 8.6-10.6 eGFR Calculation (Non- mL/min/1.73m2 [place]) (test code = 7816562172) eGFR Calculation ( mL/min/1.73m2 [place]) (test code = 4664731620) HOWARD (test code = HOWARD) Association of Glomerular Filtration Rate (GFR) and Staging of Kidney Disease* + +-------- + ------+| GFR (mL/min/1.73 m2) ?| With Kidney Damage ?| ?Without Kidney Damage+ +-- + +| ?>90 ?| ?Stage one ?| ? Normal ?+ +------- + -------+| ?60-89 ?| ?Stage two ?| ? Decreased GFR ? + +-------- + ------+| ?30-59 ?| ?Stage three ?| ? Stage three ? + +-------- + ------+| ?15-29 ?| ?Stage four ? | ? Stage four ?+ +------- + -------+| ?<15 (or dialysis) ? ?| ?Stage five ? | ? Stage five ?+ +------- + -------+ *Each stage assumes the associated GFR level has been in effect for at least three months. ?Stages 1 to 5, with or without kidney disease, indicate chronic kidney disease. Notes: Determination of stages one and two (with eGFR >59mL/min/1.73 m2) requires estimation of kidney damage for at least three months as defined by structural or functional abnormalities of the kidney, manifested by either:Pathological abnormalities or Markers of kidney damage (including abnormalities in the composition of the blood or urine or abnormalities in imaging tests). Lab Interpretation (test code = Abnormal 53011-2) [facility] WITH [id number] 03:02:00 Test Item Value Reference Range Interpretation Comments WBC (test code = See_Comment [Automated 9590-2) message] The sy stem which generated this result transmitted reference range : 4.30 - 11.10 10*3/?L. The reference range was not used to interpret this result as normal/abnormal . RBC (test code = See_Comment [Automated 409-8) message] The sy stem which generated this result transmitted reference range : 3.93 - 5.25 10*6/?L. The reference range was not used to interpret this result as normal/abnormal . HGB (test code = 11.7 g/dL 11.6-15 718-7) HCT (test code = 35.6 % 35.7-45.2 L 4544-3) MCV (test code = 80.9 fL 80.6-95.5 787-2) MCH (test code = 26.6 pg 25.9-32.8 785-6) MCHC (test code = 32.9 g/dL 31.6-35.1 786-4) RDW-SD (test code = 40.0 fL 39-49.9 94051-3) RDW-CV (test code = 13.7 % 12-15.5 788-0) PLT (test code = See_Comment [Automated 777-3) message] The sy stem which generated this result transmitted reference range : 166 - 358 10*3/ ?L. The reference r she was not used to interpret this result as normal/abnormal . MPV (test code = 10.4 fL 9.5-12.9 18660-6) NRBC/100 WBC (test See_Comment [Automat ed code = 4820415924) message] The system which generated this result transmitted reference range : 0.0 - 10.0 /100 WBCs. The refer ence range was not u sed to interpret th is result as normal/abnormal . NRBC x10^3 (test code <0.01 See_Comment [Auto mated = 2748842898) message] The s ystem which generated this result transmitted reference range : 10*3/?L. The reference range was not used to interpret this result as normal/abnormal . GRAN MAT (NEUT) % 66.7 % (test code = 770-8) IMM GRAN % (test code 1.10 % = 5144725908) LYMPH % (test code = 21.9 % 736-9) MONO % (test code = 6.7 % 5905-5) EOS % (test code = 3.0 % 713-8) BASO % (test code = 0.6 % 706-2) GRAN MAT x10^3(ANC) 4.65 10*3/uL 1.88-7.09 (test code = 8684948973) IMM GRAN x10^3 (test 0.08 10*3/uL 0-0.06 H code = 8370040478) LYMPH x10^3 (test code 1.53 10*3/uL 1.32-3.29 = 731-0) MONO x10^3 (test code 0.47 10*3/uL 0.33-0.92 = 742-7) EOS x10^3 (test code = 0.21 10*3/uL 0.03-0.39 711-2) BASO x10^3 (test code 0.04 10*3/uL 0.01-0.07 = 704-7) Lab Interpretation Abnormal (test code = 65674-0) [facility] Test Item Value Reference Range Interpretation Comments APPEARANCE (test code = Hazy Clear A 8823859008) COLOR (test code = Yellow Yellow 7980073274) PH (test code = 4.8-8.0 8602562455) SP GRAVITY (test code = 1.003-1.030 4979435591) GLU U QUAL (test code = Normal Normal 4755600931) BLOOD (test code = 1+ Negative A 3857126774) KETONES (test code = Negative Negative 0667709784) PROTEIN (test code = Negative Negative 2887-8) UROBILIN (test code = Normal Normal 7565510497) BILIRUBIN (test code = Negative Negative 2865413899) NITRITE (test code = Negative Negative 5226615925) LEUK KLEBER (test code = Negative Negative 0633412689) RBC/HPF (test code = See_Comment H [Autom ated message] 4298180592) The system [employer] generated this result transmitted ref erence range: 0 - 3 HP F. The reference range was not used to int erpret this result as normal/abnormal . WBC/HPF (test code = See_Comment [Autom ated message] 1711240406) The system [employer] generated this result transmitted ref erence range: 0 - 5 HP F. The reference range was not used to int erpret this result as normal/abnormal . BACTERIA (test code = Negative Negative 3743717233) SQ EPITH (test code = HPF 3384144498) Lab Interpretation (test Abnormal code = 00937-3) [facility] [id number] 01:31:00 Test Item Value Reference Range Interpretation Comments POCT PREG (test code = 1605) Negative On board controls acceptable with Present C Line (test code = 3574) POCT PREG LOT # (test code = 3575) [id number] POCT PREG TEST DATE (test 04/26/2021 code = 3576) Lab Interpretation (test code = Normal 42345-9) [facility]
[2022-04-21] MEDS ORDERED: ONDANSETRON 4 MG/2 ML VIAL ONE (19:03)
--- NOTE | 2022-04-21 19:06 | RAD REPORT ---
EXAM DESCRIPTION: CT - C Spine Wo Con - 04/21/2022 6:39 pm CLINICAL HISTORY: Neck injury, neck pain COMPARISON: None. TECHNIQUE: Axial 2 mm thick images of the cervical spine were obtained with sagittal and coronal rec onstruction images generated and reviewed. All CT scans are performed using dose optimization technique as appropriate and may include automated exposure control or mA/KV adjustment according to patient size. FINDINGS: C2- T3 vertebral body height and alignment are normal. No fracture or acute finding of the se vertebrae. Facet joints align normally. No rotational abnormality in the C2-T3 region. No disk spa ce narrowing. The atlantodental interval (distance between the dens and anterior arch C1) measures approximately 3. 5 mm. This should typically be less than 3 mm. Lateral masses of C1 appear slightly forward positione d relative to the occipital condyles and the body of C2. No rotational component of C1. Possible soft tissue injury in this region is possible. This is only slightly outside of normal range in these cor relation to determine if the patient has pain is in the skullbase- C2 region. No paraspinal mass or hematoma. Central canal detail is inherently limited on CT imaging. IMPRESSION: The atlantodental interval is increased slightly relative to normal standards (3.5 mm vs <3 mm). No comparison is available. Possibility of a soft tissue injury cannot be entirely excluded. Correlation is needed to determine if the patient has neck pain symptoms are in the skullbase- C2 re gion. Cervical spine is otherwise unremarkable.
[2022-04-21] MEDS ORDERED: LEVALBUTEROL 0.63 MG/3 ML NEB ONE (19:07)
--- NOTE | 2022-04-21 19:09 | RAD REPORT ---
EXAM DESCRIPTION: CT - Neck Angio - 04/21/2022 6:58 pm CLINICAL HISTORY: neck pain, difficulty swallowing TECHNIQUE: During dynamic enhancement using nonionic IV contrast, axial 2 mm thick images of the nec k were obtained. Sagittal and axial reconstruction images were generated using MIP technique and revi ewed. All CT scans are performed using dose optimization technique as appropriate and may include automated exposure control or mA/KV adjustment according to patient size. COMPARISON: CT cervical spine same date FINDINGS: No aneurysm or vascular malformation identified. No carotid or vertebral dissection. No aortic arch or great vessel origin abnormality seen. Vertebral artery origins unremarkable as well . No stenosis, vasculitis or other significant carotid artery finding. No focal abnormality of either vertebral artery. Basilar artery is normal. Imaging extended into the intracranial region were no [place] abnormality or intracranial va scular abnormality seen. Incidental note of left maxillary sinus mucosal thickening. There is significant right deviation of t he nasal septum. IMPRESSION: Negative CT angio neck examination.
--- NOTE | 2022-04-21 20:23 | ER ---
Nurse's Notes [facility] Name: Kacie Naqvi Age: 36 yrs Sex: Female : 1985 Arrival Date: 04/21/2022 Time: 17:41 Bed 12 Private MD: Diagnosis: Sprain of ligaments of cervical spine, initial encounter Presentation: 04/21 17:44 Chief complaint: Patient states: "I stretched and my neck popped really loud and now hb the pain is excruciating." Reports neck pain 9/10, unable to move head or lie down due to pain, and pain in front of neck when drinking fluids. Coronavirus screen: At this time, the client does not indicate any symptoms associated with coronavirus-19. Ebola Screen: No symptoms or risks identified at this time. Risk Assessment: Do you want to hurt yourself or someone else? Patient reports no desire to harm self or others. Onset of symptoms was April 21, 2022. 17:44 Method Of Arrival: Ambulatory hb 17:44 Acuity: DEIRDRE 3 hb Historical: - Allergies: 17:46 No Known Allergies; hb - PMHx: 17:46 Anxiety; Asthma; Depression; hb - Immunization history:: Adult Immunizations up to date. - Social history:: Smoking status: Patient denies any tobacco usage or history of. Screenin:00 Abuse screen: Denies threats or abuse. Denies injuries from another. Nutritional kb3 screening: No deficits noted. Tuberculosis screening: No symptoms or risk factors identified. Fall Risk None identified. Assessment: 18:00 General: Received care of pt from triage. Pt reports she was stretching at 1000 this kb3 morning and felt a pop in her posterior neck. Reports the pain has gotten worse throughout the day and the pain is severe when she tries to move her neck or lie down. Pt reports pain as 10/10 and in the middle posterior neck, not worse on either side and does not radiate down her back or shoulders.. 18:00 Pain: Complains of pain in back of neck Pain does not radiate. Pain currently is 10 out kb3 of 10 on a pain scale. Quality of pain is described as burning, sharp, Pain began suddenly, 10:00 a.m. today. Musculoskeletal: Capillary refill < 3 seconds, Tenderness present in back of neck Reports pain in back of neck. 18:48 General: Pt returned from CT, reports feeling mildly nauseous after receiving IV kb3 contrast. PA notified. Orders received.. 18:50 General: Pt reporting that she forgot her albuterol inhaler and feels SOB, O2 sat 100%. kb3 PA notified. Breathing treatment ordered. Vital Signs: 17:44 BP 137 / 80; Pulse 94; Resp 16; Temp 98.9(TE); Pulse Ox 100% on R/A; Weight 56.7 kg; hb Height 4 ft. 11 in. (149.86 cm); Pain 9/10; 18:45 BP 116 / 69; Pulse 91; Resp 16; Pulse Ox 99% ; kb3 17:44 Body Mass Index 25.25 (56.70 kg, 149.86 cm) hb ED Course: 17:41 Patient arrived in ED. mr 17:46 Triage completed. hb 17:46 Arm band placed on. 17:50 Cassidy Hutson, SAMIR is Primary Nurse. kb3 17:50 Ian Alfaro PA is PHCP. [facility] 17:50 Pako Cristina MD is Attending Physician. [facility] 18:00 Patient has correct armband on for positive identification. Bed in low position. Call kb3 light in reach. Side rails up X2. Adult w/ patient. 18:00 No provider procedures requiring assistance completed. kb3 18:23 Inserted saline lock: 22 gauge in right antecubital area, using aseptic technique. kb3 Blood collected. 18:[address] via wheelchair. kb3 18:41 CT C Spine In Process Unspecified. EDMS 18:42 CT Neck Angio In Process Unspecified. EDMS 19:14 Rigid cervical collar applied and checked by physician. kb3 Administered Medications: 18:17 Drug: Valium (diazepam) 5 mg Route: IVP; Site: right antecubital; kb3 19:00 Follow up: Response: No adverse reaction; Pain is decreased kb3 18:20 Drug: Ketorolac 30 mg Route: IVP; Site: right antecubital; kb3 19:00 Follow up: Response: No adverse reaction; Pain is decreased kb3 18:23 Drug: Decadron - Dexamethasone 10 mg Route: IVP; Site: right antecubital; kb3 19:24 Follow up: Response: No adverse reaction; Pain is decreased kb3 18:52 Drug: Zofran (Ondansetron) 4 mg Route: IVP; Site: right antecubital; kb3 19:23 Follow up: Response: No adverse reaction; Nausea is decreased kb3 18:59 Drug: Xopenex (levalbuterol) (3) 1.25 mg Route: Inhalation; kb3 19:23 Follow up: Response: Wheezing diminished kb3 Medication: 18:00 VIS not applicable for this client. kb3 Outcome: 20:23 Discharge ordered by MD. regalado 21:20 Patient left the ED. hb Signatures: Dispatcher [employer] EDMS Ian Alfaro PA PA jmm Rivera, Mary mr Blanca Charles RN RN Cassidy Hutson RN RN kb3
--- NOTE | 2022-04-21 20:23 | EDPHYS ---
Physician Documentation [facility] Name: Kacie Naqvi Age: 36 yrs Sex: Female : 1985 Arrival Date: 04/21/2022 Time: 17:41 Bed 12 Private MD: ED Physician Pako Cristina HPI: 04/21 17:53 This 36 yrs old Female presents to ER via Ambulatory with complaints of Neck jmm pain. 17:53 Denies weakness/numbness to her arms. This is a 36 year old with a history of asthma, jmm that presents to the ED with complaints of neck pain which developed acutely just prior to arrival. Patient states she felt her neck pop when moving her neck. Pain localized to both sides of the neck. Also complains of pain on swallowing. Symptoms occurred after hyperflexing her neck. . Historical: - Allergies: 17:46 No Known Allergies; hb - PMHx: 17:46 Anxiety; Asthma; Depression; hb - Immunization history:: Adult Immunizations up to date. - Social history:: Smoking status: Patient denies any tobacco usage or history of. ROS: 17:53 Constitutional: Negative for fever, chills, and weight loss. jmm 17:53 Neck: Positive for pain with movement. 17:53 All other systems are negative. Exam: 17:53 Constitutional: This is a well developed, well nourished patient who is awake, alert, jmm and in no acute distress. Head/Face: atraumatic. Eyes: EOMI, no conjunctival erythema appreciated ENT: Moist Mucus Membranes 17:53 Chest/axilla: Normal chest wall appearance and motion. Cardiovascular: Regular rate and rhythm. No edema appreciated Respiratory: Normal respirations, no respiratory distress appreciated Abdomen/GI: Non distended Back: Normal ROM Skin: General appearance color normal MS/ Extremity: Moves all extremities, no obvious deformities appreciated, no edema noted to the lower extremities Neuro: Awake and alert Psych: Behavior is normal, Mood is normal, Patient is cooperative and pleasant 17:53 Neck: paraspinal cervical pain on palpation, midline tenderness, painful rotations appreciated. Vital Signs: 17:44 BP 137 / 80; Pulse 94; Resp 16; Temp 98.9(TE); Pulse Ox 100% on R/A; Weight 56.7 kg; hb Height 4 ft. 11 in. (149.86 cm); Pain 9/10; 18:45 BP 116 / 69; Pulse 91; Resp 16; Pulse Ox 99% ; kb3 17:44 Body Mass Index 25.25 (56.70 kg, 149.86 cm) hb MDM: 17:53 Patient medically screened. [facility] 20:21 Data reviewed: vital signs, nurses notes. Counseling: I had a detailed discussion with [facility] the patient and/or guardian regarding: the historical points, exam findings, and any diagnostic results supporting the discharge/admit diagnosis, lab results, radiology results, the need for outpatient follow up, to return to the emergency department if symptoms worsen or persist or if there are any questions or concerns that arise at home. ED course: Patient has no neuro deficits. I discussed the patient with Dr. Shelton whom recommended c-collar and medrol dose pack. Will follow up in clinic. . 04/21 17:54 Order name: CT C Spine; Complete Time: 19:13 [facility] 04/21 18:05 Order name: CT Neck Angio; Complete Time: 19:13 [facility] 04/21 17:54 Order name: Saline Lock; Complete Time: 18:06 [facility] 04/21 19:03 Order name: C-Collar; Complete Time: 19:23 [facility] Administered Medications: 18:17 Drug: Valium (diazepam) 5 mg Route: IVP; Site: right antecubital; kb3 19:00 Follow up: Response: No adverse reaction; Pain is decreased kb3 18:20 Drug: Ketorolac 30 mg Route: IVP; Site: right antecubital; kb3 19:00 Follow up: Response: No adverse reaction; Pain is decreased kb3 18:23 Drug: Decadron - Dexamethasone 10 mg Route: IVP; Site: right antecubital; kb3 19:24 Follow up: Response: No adverse reaction; Pain is decreased kb3 18:52 Drug: Zofran (Ondansetron) 4 mg Route: IVP; Site: right antecubital; kb3 19:23 Follow up: Response: No adverse reaction; Nausea is decreased kb3 18:59 Drug: Xopenex (levalbuterol) (3) 1.25 mg Route: Inhalation; kb3 19:23 Follow up: Response: Wheezing diminished kb3 Disposition Summary: 04/21/22 20:23 Discharge Ordered Location: Home [facility] Condition: Stable [facility] Diagnosis - Sprain of ligaments of cervical spine, initial encounter jm Followup: jmm - With: Private Physician - When: 2 - 3 days - Reason: Recheck today's complaints, Continuance of care, Re-evaluation by your physician Discharge Instructions: - Discharge Summary Sheet jm - Cervical Sprain [facility] Forms: - Medication Reconciliation Form [facility] - Thank You Letter [facility] - Antibiotic Education [facility] - Prescription Opioid Use [facility] Prescriptions: - Ultracet 37.5-325 mg Oral Tablet - take 1 tablet by ORAL route every 6 hours - for up to 5 days; do not exceed 8 jmm tablets per day.; 20 tablet; Refills: 0, Product Selection Permitted - Medrol (Hermilo) 4 mg Oral Tablets, Dose Pack - take 1 tablet by ORAL route as directed - follow package instructions; 1 jmm packet; Refills: 0, Product Selection Permitted Addendum: 04/24/2022 07:29 Co-signature as Attending Physician, Pako Cristina MD. r n Signatures: Dispatcher [employer] EDMS Ian Alfaro PA PA Pako Schwarz MD MD rn Baxter, Heather, RN RN Cassidy Hutson RN RN kb3 Corrections: (The following items were deleted from the chart) 04/21 20:12 17:53 This is a 36 year old with a history of asthma, that presents to the ED with [facility] complaints of neck pain which developed acutely just prior to arrival. Patient states she felt her neck pop when moving her neck. Pain localized to both sides of the neck. Also complains of pain on swallowing. . m
[2022-04-23 18:10] VITALS: TEMP 98.9
[2022-04-23 18:25] VITALS: BP 116/69; O2SAT 99
== END 2022-04-21 21:20 | disposition home or self-care (01) ==
LOC: ER 17:37
DX: S13.4XXA Sprain of ligaments of cervical spine, initial encounter (principal)
CPT/HCPCS: 72125; 70498; 96375; 96374; 99285; Q9967; J3360; J1100; J2405

== ENCOUNTER 2023-04-30 22:45 | Emergency (ER) | payer OTHER ==
--- OUTSIDE RECORDS SUMMARY | 2023-04-30 22:53 | XMS REPORT | Continuity of Care Document ---
:1985 Author Organization [facility] t Address [address] [place] [address] Care Team Providers Name Role Phone Pcp, Patient Does Not Have A Primary Care Physician +1-000-0 00-0000 AUDRA AHN Attending Clinician Unavailable AUDRA AHN Attending Clinician Unavailable Audra Ahn MD Attending Clinician KIM GROSSMAN Attending Clinician Unavailable BRIGID BATES Attending Clinician Unavailable BRIGID BATES Attending Clinician Unavailable Doctor Unassigned, [place] Attending Clinician Unavailable CHRISTIANE GLEASON Attending Clinician Unavailable Christiane Gleason NP Attending Clinician Pee PT, Krysta Vasquez Attending Clinician Unavailable Dionne Velasquez MD Attending Clinician DIONNE VELASQUEZ Attending Clinician Unavailable Chacorta Padgett MD Attending Clinician CHACORTA PADGETT Attending Clinician Unavailable DIONTE CHEN Attending Clinician Unavailable Dionte Carbone Attending Clinician Shefali Gayle Attending Clinician Payers Payer Name Policy Type Policy Number Effective Date Expiration Date S yoshi CIGBAUTISTA II [id number] 2015 00:00:00 [place] [employer] [id number] 2019 00:00:00 Problems Condition Condition Condition Status Onset [...] tubal 7-08 ity of ligation ligation 00:00: [place] [address] Medical Branch Asthma Asthma Disease Recurre Overview: Unive rs nce 4 Formattin ity of 00:00: g of this [place] 00 note Medical might be Branch different from the original. 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 Generalize Generalize Disease Active U nivers d anxiety d anxiety 4-07 ity of disorder disorder 00:00: [place] [address] Medical Branch Allergies, Adverse Reactions, Alerts Allergy Allergy Status Severity Reaction(s) Onset Inactive Treating Comm ents Source Name Type Date Date Clinician Latex Propensi Active Rash Univers ty to 04-22 ity of adverse 00:00: [place] reaction Medical s Branch LATEX DRUG Active Rash Univers INGREDI 04-22 ity of 00:00: [place] [address] Medical Branch Social History Social Habit Start Date Stop Date Quantity Comments Source Gender identity Universit y of [facility] Sexual orientation [facility] of [place] [facility] History [facility] University o f Alcohol Frequency [facility] edical Branch History [facility] University o f Alcohol Std Drinks [place] [facility] History [facility] University o f Alcohol Binge [place] Medic al Branch Exposure to 2022-10-29 2022-11-08 Not sure University of SARS-CoV-2 (event) 00:00:00 09:23:00 [facility] History of Social 2022-06-18 2022-06-18 Univers ity of function 00:00:00 00:00:00 [facility] Alcohol intake 2022-02-05 2022-02-05 Current drinker Unive rsity of 00:00:00 00:00:00 of alcohol [place] Medical (finding) Branch Alcohol Comment 2014-10-31 2014-10-31 socially only Univer sity of 00:00:00 00:00:00 prior to [place] [facility] Branch Tobacco use and 2014-10-31 2014-10-31 Smokeless Universit y of exposure 00:00:00 00:00:00 tobacco non-user [facility] Sex Assigned At [birth year] Universit y of 00:00:00 00:00:00 [facility] Smoking Status Start Date Stop Date Source Never smoked tobacco [facility] Medications Ordered Filled Start Stop Current Ordering Indication Dosage Frequency Signature Comments Components Source Medication Medication Date Date Medication? Clinician (SIG) Name Name clostridium 2023-0 2023- No [id number] 100U Univers botulinum -09 02- ity of toxin 18:45: 17:56 [place] (BOTOX) 00 :00 Medical injection Branch 100 Units clostridium 2023-0 2023- No [id number] 100U 100 Units, Univers botulinum -09 02- Intramuscu ity of toxin 18:45: 17:56 lar, ONCE, [place] (BOTOX) 00 :00 1 dose, On Medica l injection 12/27/22 Bran ch 100 Units at 1345, Routine
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 methocarbam 2023-0 Yes [id number] 500mg Take 1 Univers oL 500 mg 6-02 tablet by ity o f tablet 00:00: mouth 3 [place] 00 (three) Medical times Branch daily as needed for Pain (scale 4-6). methocarbam 3-0 Yes [id number] 500mg Take 1 Univers oL 500 mg 6-02 tablet by ity o f tablet 00:00: mouth 3 (three) Medical times Branch daily as needed for Pain (scale 4-6). methocarbam 3-0 Yes [id number] 500mg Take 1 Univers oL 500 mg 6-02 tablet by ity o f tablet 00:00: mouth 3 (three) Medical times Branch daily as needed for Pain (scale 4-6). methocarbam 3-0 Yes [id number] 500mg Take 1 Univers oL 500 mg 6-02 tablet by ity o f tablet 00:00: mouth 3 (three) Medical times Branch daily as needed for Pain (scale 4-6). amitriptyli 2022-0 Yes [id number] 25mg Take 1 Univers ne 25 mg 3-24 tablet by ity of tablet 00:00: mouth at [place] 00 bedtime. Medical Branch magnesium 2022-0 Yes [id number] 400mg Take 1 U nivers oxide 400 3-24 tablet by ity o f mg (241.3 00:00: [place] mg 00 the Medical magnesium) morning Branch tablet and 1 tablet in the evening. SUMAtriptan 2022-0 Yes [id number] 25mg Take 1 Univers 25 mg 3-24 tablet by ity of tablet 00:00: mouth as 00 needed for Medical Migraine. Branch amitriptyli 2022-0 Yes [id number] 25mg Take 1 Univers ne 25 mg 3-24 tablet by ity of tablet 00:00: mouth at [place] 00 bedtime. Medical Branch magnesium 3-0 Yes [id number] 400mg Take 1 U nivers oxide 400 3-24 tablet by ity o f mg (241.3 00:00: [place] mg 00 the Medical magnesium) morning Branch tablet and 1 tablet in the evening. SUMAtriptan 3-0 Yes [id number] 25mg Take 1 Univers 25 mg 3-24 tablet by ity of tablet 00:00: mouth as [place] 00 needed for Medical Migraine. Branch amitriptyli 2022-0 Yes [id number] 25mg Take 1 Univers ne 25 mg 3-24 tablet by ity of tablet 00:00: mouth at [place] 00 bedtime. Medical Branch magnesium 2022-0 Yes [id number] 400mg Take 1 U nivers oxide 400 3-24 tablet by ity o f mg (241.3 00:00: [place] mg 00 the Medical magnesium) morning Branch tablet and 1 tablet in the evening. SUMAtriptan 2022-0 Yes [id number] 25mg Take 1 Univers 25 mg 3-24 tablet by ity of tablet 00:00: mouth as [place] 00 needed for Medical Migraine. Branch amitriptyli 2022-0 Yes [id number] 25mg Take 1 Univers ne 25 mg 3-24 tablet by ity of tablet 00:00: mouth at [place] 00 bedtime. Medical Branch magnesium 2022-0 Yes [id number] 400mg Take 1 U nivers oxide 400 3-24 tablet by ity o f mg (241.3 00:00: [place] mg 00 the Medical magnesium) morning Branch tablet and 1 tablet in the evening. SUMAtriptan 2022-0 Yes [id number] 25mg Take 1 Univers 25 mg 3-24 tablet by ity of tablet 00:00: mouth as [place] 00 needed for Medical Migraine. Branch amitriptyli 2022-0 Yes [id number] 25mg Take 1 Univers ne 25 mg 3-24 tablet by ity of tablet 00:00: mouth at [place] 00 bedtime. Medical Branch magnesium 2022-0 Yes [id number] 400mg Take 1 U nivers oxide 400 3-24 tablet by ity o f mg (241.3 00:00: mouth [place] mg 00 the Medical magnesium) morning Branch tablet and 1 tablet in the evening. SUMAtriptan 2022-0 Yes [id number] 25mg Take 1 Univers 25 mg 3-24 tablet by ity of tablet 00:00: mouth as [place] 00 needed for Medical Migraine. Branch amitriptyli 2022-0 Yes [id number] 25mg Take 1 Univers ne 25 mg 3-24 tablet by ity of tablet 00:00: mouth at [place] 00 bedtime. Medical Branch magnesium 3-0 Yes [id number] 400mg Take 1 U nivers oxide 400 3-24 tablet by ity o f mg (241.3 00:00: mouth [place] mg 00 the Medical magnesium) morning Branch tablet and 1 tablet in the evening. SUMAtriptan 2023-0 Yes [id number] 25mg Take 1 Univers 25 mg 3-24 tablet by ity of tablet 00:00: mouth as [place] 00 needed for Medical Migraine. Branch amitriptyli 2022-0 Yes [id number] 25mg Take 1 Univers ne 25 mg 3-24 tablet by ity of tablet 00:00: mouth at [place] 00 bedtime. Medical Branch magnesium 2022-0 Yes [id number] 400mg Take 1 U nivers oxide 400 3-24 tablet by ity o f mg (241.3 00:00: mouth [place] mg 00 the Medical magnesium) morning Branch tablet and 1 tablet in the evening. SUMAtriptan 2022-0 Yes [id number] 25mg Take 1 Univers 25 mg 3-24 tablet by ity of tablet 00:00: mouth as [place] 00 needed for Medical Migraine. Branch amitriptyli 2022-0 Yes [id number] 25mg Take 1 Univers ne 25 mg 3-24 tablet by ity of tablet 00:00: mouth at [place] 00 bedtime. Medical Branch magnesium 2022-0 Yes [id number] 400mg Take 1 U nivers oxide 400 3-24 tablet by ity o f mg (241.3 00:00: mouth [place] mg 00 the Medical magnesium) morning Branch tablet and 1 tablet in the evening. SUMAtriptan 2022-0 Yes [id number] 25mg Take 1 Univers 25 mg 3-24 tablet by ity of tablet 00:00: mouth as [place] 00 needed for Medical Migraine. Branch amitriptyli 2022-0 Yes [id number] 25mg Take 1 Univers ne 25 mg 3-24 tablet by ity of tablet 00:00: mouth at [place] 00 bedtime. Medical Branch magnesium 2022-0 Yes [id number] 400mg Take 1 U nivers oxide 400 3-24 tablet by ity o f mg (241.3 00:00: mouth [place] mg 00 the Medical magnesium) morning Branch tablet and 1 tablet in the evening. SUMAtriptan 2022-0 Yes [id number] 25mg Take 1 Univers 25 mg 3-24 tablet by ity of tablet 00:00: mouth as [place] 00 needed for Medical Migraine. Branch triamcinolo 2022-0 3- No [id number] 80mg U nivers ne 3-10 03-10 ity of acetonide 19:45: 19:47 [place] (KENALOG) 00 :00 Medical injection Branch 80 mg lidocaine 2022-0 2022- No [id number] 13mL Uni vers 1% (PF) 10-04 ity of (XYLOCAINE) 19:45: 19:47 [place] injection 00 :00 Medical 13 mL Branch lidocaine 2023-0 2022- No [id number] 13mL 13 mL, U nivers 1% (PF) 10-04 Infiltrati ity o f (XYLOCAINE) 19:45: 19:47 on, ONCE, [place] injection 00 :00 1 dose, On Medi guerline 13 mL Fri Branch 10/04/22 at 1345, Routine triamcinolo 2022-0 2022- No [id number] 80mg 80 mg, Univers ne 10-04 Infiltrati ity of acetonide 19:45: 19:47 [place], ONCE, [place] (KENALOG[place] 00 :00 1 dose, On Medi guerline injection Fri Branch 80 mg 10/04/22 at 1345, Routine triamcinolo 2022-0 2022- No [id number] 80mg U nivers ne 10-04 ity of acetonide 19:45: 19:47 [place] (KENALOG) 00 :00 Medical injection Branch 80 mg lidocaine 2022-0 2022- No [id number] 13mL Uni vers 1% (PF) 10-04 ity of (XYLOCAINE) 19:45: 19:47 [place] injection 00 :00 Medical 13 mL Branch lidocaine 2022-0 2022- No [id number] 13mL 13 mL, U nivers 1% (PF) 10-04 Infiltrati ity o f (XYLOCAINE) 19:45: 19:47 on, ONCE, [place] injection 00 :00 1 dose, On Medi guerline 13 mL Fri Branch 10/04/22 at 1345, Routine triamcinolo 2022-0 2022- No [id number] 80mg 80 mg, Univers ne 10-04 Infiltrati ity of acetonide 19:45: 19:47 [place], [place]CE, [place] (KENALOG[place] 00 :00 1 dose, On Medi guerline injection Fri Branch 80 mg 10/04/22 at 1345, Routine bupivacaine 2022-0 2022- No [id number] 3mL U nivers (preserv 310 ity of free) 19:30: 19:47 [place] (SENSORCAIN 00 :00 Medical E MPF) 0.25 Branch % (2.5 mg/mL) injection 3 mL bupivacaine 2022-0 2022- No [id number] 3mL 3 mL, Univers (preserv 3-10 Infiltrati ity of free) 19:30: 19:47 on, ONCE, [place] (SENSORCAIN 00 :00 1 dose, On Me dical E MPF) 0.25 Fri Branch % (2.5 10/04/22 at mg/mL) 1345, injection 3 Routine mL bupivacaine 2022-0 2022- No [id number] 3mL U nivers (preserv 3-10 ity of free) 19:30: 19:47 [place] (SENSORCAIN 00 :00 Medical E MPF) 0.25 Branch % (2.5 mg/mL) injection 3 mL bupivacaine 2022-0 2022- No [id number] 3mL 3 mL, Univers (preserv 10-04 Infiltrati ity of free) 19:30: 19:47 on, ONCE, [place] (SENSORCAIN 00 :00 1 dose, On Me dical E MPF) 0.25 Fri Branch % (2.5 10/04/22 at mg/mL) 1345, injection 3 Routine mL diazePAM 2022-0 2022- No [id number] 5mg Take 1 Un [place] (VALIUM) 5 2-16 02-17 tablet by ity of mg tablet 00:00: 05:59 mouth once [place] 00 :[place] now for 1 Medical dose. Branch diazePAM 3-0 2022- No [id number] 5mg Take 1 Un [place] (VALIUM) 5 2-16 02-17 tablet by ity of mg tablet 00:00: 05:59 mouth once [place] 00 :00 now for 1 Medical dose. Branch methocarbam 2023-0 Yes 500mg Take 1 Uni vers oL 500 mg 1-18 tablet by ity o f tablet 00:00: mouth 3 [place] 00 (three) Medical times Branch daily as needed for Pain (scale 4-6). methocarbam 2023-0 Yes 500mg Take 1 Uni vers oL 500 mg 1-18 tablet by ity o f tablet 00:00: mouth 3 [place] 00 (three) Medical times Branch daily as needed for Pain (scale 4-6). methocarbam 2023-0 Yes 500mg Take 1 Uni vers oL 500 mg 1-18 tablet by ity o f tablet 00:00: mouth (three) Medical times Branch daily as needed for Pain (scale 4-6). methocarbam 2023-0 Yes 500mg Take 1 Uni vers oL 500 mg 1-18 tablet by ity o f tablet 00:00: mouth (three) Medical times Branch daily as needed for Pain (scale 4-6). methocarbam 2023-0 Yes 500mg Take 1 Uni vers oL 500 mg 1-18 tablet by ity o f tablet 00:00: mouth (three) Medical times Branch daily as needed for Pain (scale 4-6). methocarbam 2023-0 Yes 500mg Take 1 Uni vers oL 500 mg 1-18 tablet by ity o f tablet 00:00: mouth (three) Medical times Branch daily as needed for Pain (scale 4-6). methocarbam 2023-0 Yes 500mg Take 1 Uni vers oL 500 mg 1-18 tablet by ity o f tablet 00:00: mouth (three) Medical times Branch daily as needed for Pain (scale 4-6). methocarbam 2023-0 Yes 500mg Take 1 Uni vers oL 500 mg 1-18 tablet by ity o f tablet 00:00: mouth (three) Medical times Branch daily as needed for Pain (scale 4-6). methocarbam 2023-0 Yes 500mg Take 1 Uni vers oL 500 mg 1-18 tablet by ity o f tablet 00:00: mouth (three) Medical times Branch daily as needed for Pain (scale 4-6). methocarbam 2023-0 Yes 500mg Take 1 Uni vers oL 500 mg 1-18 tablet by ity o f tablet 00:00: mouth (three) Medical times Branch daily as needed for Pain (scale 4-6). methocarbam 2023-0 Yes 500mg Take 1 Uni vers oL 500 mg 1-18 tablet by ity o f tablet 00:00: mouth (three) Medical times Branch daily as needed for Pain (scale 4-6). methocarbam 2023-0 Yes 500mg Take 1 Uni vers oL 500 mg 1-18 tablet by ity o f tablet 00:00: mouth 3 [place] 00 (three) Medical times Branch daily as needed for Pain (scale 4-6). methocarbam 2023-0 Yes 500mg Take 1 Uni vers oL 500 mg 1-18 tablet by ity o f tablet 00:00: mouth 3 [place] 00 (three) Medical times Branch daily as needed for Pain (scale 4-6). methocarbam 2023-0 Yes 500mg Take 1 Uni vers oL 500 mg 1-18 tablet by ity o f tablet 00:00: mouth 3 [place] 00 (three) Medical times Branch daily as needed for Pain (scale 4-6). methocarbam 2023-0 2023- No 500mg Take 1 Un [facility] oL 500 mg 1-18 06-02 tablet by ity of tablet 00:00: 00:00 mouth 3 [place] 00 :00 (three) Medical times Branch daily as needed for Pain (scale 4-6). methocarbam 2023-0 2023- No 500mg Take 1 Un j[facility] oL 500 mg 1-18 -02 tablet by ity of tablet 00:00: 00:00 mouth 3 [place] 00 :00 (three) Medical times Branch daily as needed for Pain (scale 4-6). triamcinolo 2022-0 2022- No [id number] 40mg U nivers ne 08-05 ity of acetonide 19:30: 19:19 [place] (KENALOG) 00 :00 Medical injection Branch 40 mg bupivacaine 2022-0 2022- No [id number] 5mL U nivers (preserv 08-05 ity of free) 19:30: 19:18 [place] (SENSORCAIN 00 :00 Medical E MPF) 0.25 Branch % (2.5 mg/mL) injection 5 mL bupivacaine 2022-0 2022- No [id number] 5mL 5 mL, Univers (preserv 08-05 Infiltrati ity of free) 19:30: 19:18 on, ONCE, [place] (SENSORCAIN 00 :00 1 dose, On Me dical E MPF) 0.25 08/05/22 Br anch % (2.5 at 1330, mg/mL) Routine injection 5 mL triamcinolo 2022-0 2022- No [id number] 40mg 40 mg, Univers ne 08-05 Intramuscu ity of acetonide 19:30: 19:19 lar, ONCE, [place] (KENALOG) 00 :00 1 dose, On Medi guerline injection 08/05/22 Bran ch 40 mg at 1330, Routine triamcinolo 2022-0 2022- No [id number] 40mg U nivers ne 08-05 ity of acetonide 19:30: 19:19 [place] (KENALOG) 00 :00 Medical injection Branch 40 mg bupivacaine 2022-0 2022- No [id number] 5mL U nivers (preserv 08-05 ity of free) 19:30: 19:18 [place] (SENSORCAIN 00 :00 Medical E MPF) 0.25 Branch % (2.5 mg/mL) injection 5 mL bupivacaine 2022- No [id number] 5mL 5 mL, Univers (preserv 08-05 Infiltrati ity of free) 19:30: 19:18 on, ONCE, [place] (SENSORCAIN 00 :00 1 dose, On Me dical E MPF) 0.25 Fri08/05/22 Br anch % (2.5 at 1330, mg/mL) Routine injection 5 mL triamcinolo 2022- No [id number] 40mg 40 mg, Univers ne 08-05 Intramuscu ity of acetonide 19:30: 19:19 lar, ONCE, [place] (KENALOG) 00 :00 1 dose, On Medi guerline injection 08/05/22 Bran ch 40 mg at 1330, Routine methocarbam 2022-0 Yes [id number] 500mg Univers oL - ity of (ROBAXIN) 18:39: [place] tablet 500 18 Medical mg Branch methocarbam 3-0 Yes [id number] 500mg Univers oL - ity of (ROBAXIN) 18:39: [place] tablet 500 18 Medical mg Branch methocarbam 2022-0 Yes [id number] 500mg Univers oL - ity of (ROBAXIN) 18:39: [place] tablet 500 18 Medical mg Branch methocarbam 2022-0 Yes [id number] 500mg Univers oL 1-09 ity of (ROBAXIN) 18:39: [place] tablet 500 18 Medical mg Branch methocarbam 2023-0 Yes [id number] 500mg Univers oL 1-09 ity of (ROBAXIN) 18:39: [place] tablet 500 18 Medical mg Branch methocarbam 2023-0 Yes [id number] 500mg Univers oL 1-09 ity of (ROBAXIN) 18:39: [place] tablet 500 18 Medical mg Branch methocarbam 2023-0 Yes [id number] 500mg Univers oL 1-09 ity of (ROBAXIN) 18:39: [place] tablet 500 18 Medical mg Branch methocarbam 2023-0 Yes [id number] 500mg Univers oL 1-09 ity of (ROBAXIN) 18:39: [place] tablet 500 18 Medical mg Branch methocarbam 2023-0 Yes [id number] 500mg Univers oL 1-09 ity of (ROBAXIN) 18:39: [place] tablet 500 18 Medical mg Branch methocarbam 2023-0 Yes [id number] 500mg Univers oL 1-09 ity of (ROBAXIN) 18:39: [place] tablet 500 18 Medical mg Branch methocarbam 2023-0 Yes [id number] 500mg Univers oL 1-09 ity of (ROBAXIN) 18:39: [place] tablet 500 18 Medical mg Branch methocarbam 2023-0 Yes [id number] 500mg Univers oL 1-09 ity of (ROBAXIN) 18:39: [place] tablet 500 18 Medical mg Branch methocarbam 2023-0 Yes [id number] 500mg Univers oL 1-09 ity of (ROBAXIN) 18:39: [place] tablet 500 18 Medical mg Branch methocarbam 2023-0 Yes [id number] 500mg Univers oL 1-09 ity of (ROBAXIN) 18:39: [place] tablet 500 18 Medical mg Branch methocarbam 2023-0 Yes [id number] 500mg Univers oL 1-09 ity of (ROBAXIN) 18:39: [place] tablet 500 18 Medical mg Branch methocarbam 2023-0 Yes [id number] 500mg Univers oL 1-09 ity of (ROBAXIN) 18:39: [place] tablet 500 18 Medical mg Branch methocarbam 2023-0 Yes [id number] 500mg Univers oL 1-09 ity of (ROBAXIN) 18:39: [place] tablet 500 18 Medical mg Branch methocarbam 2023-0 Yes [id number] 500mg Univers oL 1-09 ity of (ROBAXIN) 18:39: [place] tablet 500 18 Medical mg Branch methocarbam 2022-0 Yes [id number] 500mg Univers oL 1-09 ity of (ROBAXIN) 18:39: [place] tablet 500 18 Medical mg Branch methocarbam 2022-0 Yes [id number] 500mg Univers oL -09 ity of (ROBAXIN) 18:39: [place] tablet 500 18 Medical mg Branch methocarbam 2022-0 Yes [id number] 500mg Univers oL -09 ity of (ROBAXIN) 18:39: [place] tablet 500 18 Medical mg Branch methocarbam 2022-0 Yes [id number] 500mg Univers oL 1-09 ity of (ROBAXIN) 18:39: [place] tablet 500 18 Medical mg Branch magnesium 2021-07 Yes [id number] 400mg Take 1 U nivers oxide 400 2-16 tablet by ity o f mg (241.3 00:00: mouth in [place] mg 00 the Medical magnesium) morning Branch tablet and 1 tablet in the evening. amitriptyli 2021-07 Yes [id number] 25mg Take 1 Univers ne 25 mg 2-16 tablet by ity of tablet 00:00: mouth at [place] 00 bedtime. Medical Branch SUMAtriptan 2021-07 Yes [id number] 50mg Take 1 Univers 50 mg 2-16 tablet by ity of tablet 00:00: mouth as [place] 00 needed for Medical Migraine. Branch magnesium 2021-07 Yes [id number] 400mg Take 1 U nivers oxide 400 2-16 tablet by ity o f mg (241.3 00:00: mouth [place] mg 00 the Medical magnesium) morning Branch tablet and 1 tablet in the evening. amitriptyli 2021-07 Yes [id number] 25mg Take 1 Univers ne 25 mg 2-16 tablet by ity of tablet 00:00: mouth at [place] 00 bedtime. Medical Branch SUMAtriptan 2021-07 Yes [id number] 50mg Take 1 Univers 50 mg 2-16 tablet by ity of tablet 00:00: mouth as [place] 00 needed for Medical Migraine. Branch magnesium 2021-07 Yes [id number] 400mg Take 1 U nivers oxide 400 2-16 tablet by ity o f mg (241.3 00:00: mouth [place] mg 00 the Medical magnesium) morning Branch tablet and 1 tablet in the evening. amitriptyli 2021-07 Yes [id number] 25mg Take 1 Univers ne 25 mg 2-16 tablet by ity of tablet 00:00: mouth at [place] 00 bedtime. Medical Branch SUMAtriptan 2021-07 Yes [id number] 50mg Take 1 Univers 50 mg 2-16 tablet by ity of tablet 00:00: mouth as [place] 00 needed for Medical Migraine. Branch magnesium 2021-07 Yes [id number] 400mg Take 1 U nivers oxide 400 2-16 tablet by ity o f mg (241.3 00:00: mouth [place] mg 00 the Medical magnesium) morning Branch tablet and 1 tablet in the evening. amitriptyli 2021-07 Yes [id number] 25mg Take 1 Univers ne 25 mg 2-16 tablet by ity of tablet 00:00: mouth at [place] 00 bedtime. Medical Branch SUMAtriptan 2021-07 Yes [id number] 50mg Take 1 Univers 50 mg 2-16 tablet by ity of tablet 00:00: mouth as [place] 00 needed for Medical Migraine. Branch magnesium 2021-07 Yes [id number] 400mg Take 1 U nivers oxide 400 2-16 tablet by ity o f mg (241.3 00:00: mouth [place] mg 00 the Medical magnesium) morning Branch tablet and 1 tablet in the evening. amitriptyli 2021-07 Yes [id number] 25mg Take 1 Univers ne 25 mg 2-16 tablet by ity of tablet 00:00: mouth at [place] 00 bedtime. Medical Branch SUMAtriptan 2021-07 Yes [id number] 50mg Take 1 Univers 50 mg 2-16 tablet by ity of tablet 00:00: mouth as [place] 00 needed for Medical Migraine. Branch magnesium 2021-07 Yes [id number] 400mg Take 1 U nivers oxide 400 2-16 tablet by ity o f mg (241.3 00:00: mouth [place] mg 00 the Medical magnesium) morning Branch tablet and 1 tablet in the evening. amitriptyli 2021-07 Yes [id number] 25mg Take 1 Univers ne 25 mg 2-16 tablet by ity of tablet 00:00: mouth at [place] 00 bedtime. Medical Branch SUMAtriptan 2021-07 Yes [id number] 50mg Take 1 Univers 50 mg 2-16 tablet by ity of tablet 00:00: mouth as [place] 00 needed for Medical Migraine. Branch magnesium 2021-07 Yes [id number] 400mg Take 1 U nivers oxide 400 2-16 tablet by ity o f mg (241.3 00:00: mouth [place] mg 00 the Medical magnesium) morning Branch tablet and 1 tablet in the evening. amitriptyli 2021-07 Yes [id number] 25mg Take 1 Univers ne 25 mg 2-16 tablet by ity of tablet 00:00: mouth at [place] 00 bedtime. Medical Branch SUMAtriptan 2021-07 Yes [id number] 50mg Take 1 Univers 50 mg 2-16 tablet by ity of tablet 00:00: mouth as [place] 00 needed for Medical Migraine. Branch magnesium 2021-07 Yes [id number] 400mg Take 1 U nivers oxide 400 2-16 tablet by ity o f mg (241.3 00:00: mouth [place] mg 00 the Medical magnesium) morning Branch tablet and 1 tablet in the evening. amitriptyli 2021-07 Yes [id number] 25mg Take 1 Univers ne 25 mg 2-16 tablet by ity of tablet 00:00: mouth at [place] 00 bedtime. Medical Branch SUMAtriptan 2021-07 Yes [id number] 50mg Take 1 Univers 50 mg 2-16 tablet by ity of tablet 00:00: mouth as [place] 00 needed for Medical Migraine. Branch magnesium 2021-07 Yes [id number] 400mg Take 1 U nivers oxide 400 2-16 tablet by ity o f mg (241.3 00:00: mouth [place] mg 00 the Medical magnesium) morning Branch tablet and 1 tablet in the evening. amitriptyli 2021-07 Yes [id number] 25mg Take 1 Univers ne 25 mg 2-16 tablet by ity of tablet 00:00: mouth at [place] 00 bedtime. Medical Branch SUMAtriptan 2021-07 Yes [id number] 50mg Take 1 Univers 50 mg 2-16 tablet by ity of tablet 00:00: mouth as [place] 00 needed for Medical Migraine. Branch magnesium 2021-07 Yes [id number] 400mg Take 1 U nivers oxide 400 2-16 tablet by ity o f mg (241.3 00:00: [place] mg 00 the Medical magnesium) morning Branch tablet and 1 tablet in the evening. amitriptyli 2021-07 Yes [id number] 25mg Take 1 [facility] ne 25 mg 2-16 tablet by [facility] of tablet 00:00: mouth at [place] 00 bedtime. Medical Branch SUMAtriptan 2021-07 Yes [id number] 50mg Take 1 [facility] 50 mg 2-16 tablet by it[facility] of tablet 00:00: mouth as [place] 00 needed for Medical Migraine. Branch magnesium 2021-07 Yes [id number] 400mg Take 1 [facility] oxide 400 2-16 tablet by ity o f mg (241.3 00:00: mouth [place] mg 00 the Medical magnesium) morning Branch tablet and 1 tablet in the evening. amitriptyli 2021-07 Yes [id number] 25mg Take 1 [facility] ne 25 mg 2-16 tablet by ity of tablet 00:00: mouth at [place] 00 bedtime. Medical Branch SUMAtriptan 2021-07 Yes [id number] 50mg Take 1 [facility] 50 mg 2-16 tablet by ity of tablet 00:00: mouth as [place] 00 needed for Medical Migraine. Branch magnesium 2021-07 Yes [id number] 400mg Take 1 [facility] oxide 400 2-16 tablet by ity o f mg (241.3 00:00: mouth [place] mg 00 the Medical magnesium) morning Branch tablet and 1 tablet in the evening. amitriptyli 2021-07 Yes [id number] 25mg Take 1 [facility] ne 25 mg 2-16 tablet by [facility] of tablet 00:00: mouth at [place] 00 bedtime. Medical Branch SUMAtriptan 2021-07 Yes [id number] 50mg Take 1 [facility] 50 mg 2-16 tablet by [facility] of tablet 00:00: mouth as [place] 00 needed for Medical Migraine. Branch magnesium 2021-07 Yes [id number] 400mg Take 1 [facility] oxide 400 2-16 tablet by ity o f mg (241.3 00:00: mouth [place] mg 00 the Medical magnesium) morning Branch tablet and 1 tablet in the evening. amitriptyli 2021-07 Yes [id number] 25mg Take 1 [facility] ne 25 mg 2-16 tablet by ity of tablet 00:00: mouth at [place] 00 bedtime. Medical Branch SUMAtriptan 2021-07 Yes [id number] 50mg Take 1 [facility] 50 mg 2-16 tablet by ity of tablet 00:00: mouth as [place] 00 needed for Medical Migraine. Branch magnesium 2021-07 Yes [id number] 400mg Take 1 [facility] oxide 400 2-16 tablet by ity o f mg (241.3 00:00: mouth [place] mg 00 the Medical magnesium) morning Branch tablet and 1 tablet in the evening. amitriptyli 2021-07 Yes [id number] 25mg Take 1 [facility] ne 25 mg 2-16 tablet by [facility]y of tablet 00:00: mouth at [place] 00 bedtime. Medical Branch SUMAtriptan 2021-07 Yes [id number] 50mg Take 1 [facility] 50 mg 2-16 tablet by [facility] of tablet 00:00: mouth as [place] 00 needed for Medical Migraine. Branch magnesium 2021-07- No [id number] 400mg Take 1 [facility] oxide 400 2-16 03-24 tablet by ity of mg (241.3 00:00: 00:00 mouth in [place] as mg 00 :00 the Medical magnesium) morning Branch tablet and 1 tablet in the evening. amitriptyli 2021-07- No [id number] 25mg Take 1 [facility] ne 25 mg 2-16 03-24 tablet by ity o f tablet 00:00: 00:00 mouth at [place] 00 :00 bedtime. Medical Branch SUMAtriptan 2021-07- No [id number] 50mg Take 1 [facility] 50 mg 2-16 03-24 tablet by ity of tablet 00:00: 00:00 mouth as [place] 00 :00 needed for Medical Migraine. Branch magnesium 2021-07- No [id number] 400mg Take 1 [facility] oxide 400 2-16 03-24 tablet by ity of mg (241.3 00:00: 00:00 mouth in [place] as mg 00 :00 the Medical magnesium) morning Branch tablet and 1 tablet in the evening. amitriptyli 2021-07- No [id number] 25mg Take 1 [facility] ne 25 mg 2-16 03-24 tablet by ity o f tablet 00:00: 00:00 mouth at [place] 00 :00 bedtime. Medical Branch SUMAtriptan 2021-07- No [id number] 50mg Take 1 [facility] 50 mg 2-16 03-24 tablet by ity of tablet 00:00: 00:00 mouth as [place] 00 :00 needed for Medical Migraine. Branch magnesium 2021-07- No [id number] 400mg Take 1 [facility] oxide 400 09-1224 tablet by ity of mg (241.3 00:00: 00:00 mouth in [place] as mg 00 :00 the Medical magnesium) morning Branch tablet and 1 tablet in the evening. amitriptyli 2021-07- No [id number] 25mg Take 1 [facility] ne 25 mg 09-12-24 tablet by ity o f tablet 00:00: 00:00 mouth at [place] 00 :00 bedtime. Medical Branch SUMAtriptan 2021-07- No [id number] 50mg Take 1 [facility] 50 mg 09-12- tablet by ity of tablet 00:00: 00:00 mouth as [place] 00 :00 needed for Medical Migraine. Branch triamcinolo 2021-07- No [id number] 40mg [facility] ne 09-05 ity of acetonide 23:00: 22:02 [place] (KENALOG) 00 :00 Medical injection Branch 40 mg bupivacaine 2021-07- No [id number] 5mL [facility] (preserv 09-05 ity of free) 23:00: 22:02 [place] (SENSORCAIN 00 :00 Medical E MPF) 0.25 Branch % (2.5 mg/mL) injection 5 mL bupivacaine 2021-07- No [id number] 5mL 5 mL, [facility] (preserv 09-05 Infiltrati ity of free) 23:00: 22:02 on, ONCE, [place] (SENSORCAIN 00 :00 1 dose, On Me dical E MPF) 0.25 Fri Branch % (2.5 07/05/22 at mg/mL) 1700, injection 5 Routine mL triamcinolo 2021-07- No [id number] 40mg 40 mg, [facility] ne 09-05 Intramuscu ity of acetonide 23:00: 22:02 [place], ONCE, [place] (KENALOG) 00 :00 1 dose, On Medi guerline injection Fri Branch 40 mg 07/05/22 at 1700, Routine triamcinolo 2021-07- No [id number] 40mg [facility] ne 09-05 ity of acetonide 23:00: 22:02 [place] (KENALOG) 00 :00 Medical injection Branch 40 mg bupivacaine 2021-07- No [id number] 5mL [facility] (preserv 09-05 ity of free) 23:00: 22:02 [place] (SENSORCAIN 00 :00 Medical E MPF) 0.25 Branch % (2.5 mg/mL) injection 5 mL bupivacaine 2021-07- No [id number] 5mL 5 mL, [facility] (preserv 09-05 Infiltrati ity of free) 23:00: 22:02 on, ONCE, [place] (SENSORCAIN 00 :00 1 dose, On Me dical E MPF) 0.25 Fri Branch % (2.5 07/05/22 at mg/mL) 1700, injection 5 Routine mL triamcinolo 2021-07- No [id number] 40mg 40 mg, [facility] ne 09-05 Intramuscu ity of acetonide 23:00: 22:02 [place], ONCE, [place] (KENALOG) 00 :00 1 dose, On Medi guerline injection Fri Branch 40 mg 07/05/22 at 1700, Routine NaCl 0.9% 2021-07- No [id number] 4mL Un j[facility] (NS) 09-05 ity of injection 4 22:45: 22:02 [place] mL 00 :00 Medical Branch NaCl 0.9% 2021-07- No [id number] 4mL 4 mL, U nivers (NS) 09-05 Infiltrati ity of injection 4 22:45: 22:02 on, ONCE, [place] mL 00 :00 1 dose, On Medical Fri Branch 07/05/22 at 1645, Routine NaCl 0.9% 2021-07- No [id number] 4mL Un jareth (NS) 09-05 ity of injection 4 22:45: 22:02 [place] mL 00 :00 Medical Branch NaCl 0.9% 2021-07- No [id number] 4mL 4 mL, U nivers (NS) 09-05 Infiltrati ity of injection 4 22:45: 22:02 on, ONCE, [place] mL 00 :00 1 dose, On Medical Fri Branch 07/05/22 at 1645, Routine triamcinolo 2021-07- No [id number] 40mg [facility] ne 08-18 ity of acetonide 21:15: 02:38 [place] (KENALOG) 00 :00 Medical injection Branch 40 mg NaCl 0.9% 2021-07- No [id number] 4mL Un jareth (NS) 08-18 ity of injection 4 21:15: 02:38 [place] mL 00 :00 Medical Branch bupivacaine 2021-07- No [id number] 5mL [facility] (preserv 08-18 ity of free) 21:15: 02:37 [place] (SENSORCAIN 00 :00 Medical E MPF) 0.25 Branch % (2.5 mg/mL) injection 5 mL bupivacaine 2021-07- No [id number] 5mL 5 mL, [facility] (preserv 08-18 Infiltrati ity of free) 21:15: 02:37 on, ONCE, [place] (SENSORCAIN 00 :00 1 dose, On Me dical E MPF) 0.25 Tue Branch % (2.5 06/18/22 mg/mL) at 1515, injection 5 Routine mL NaCl 0.9% 2021-07- No [id number] 4mL 4 mL, Slow [facility] (NS) 08-18 IV Push, ity of injection 4 21:15: 02:38 ONCE, 1 [place] mL 00 :00 dose, On Medical Tue Branch 06/18/22 at 1515, Routine triamcinolo 2021-07- No [id number] 40mg 40 mg, [facility] ne 08-18 Intramuscu ity of acetonide 21:15: 02:38 lar, ONCE, [place] (KENALOG) 00 :00 1 dose, On Medi guerline injection Tue Branch 40 mg 06/18/22 at 1515, Routine triamcinolo 2021-07- No [id number] 40mg [facility] ne 08-18 ity of acetonide 21:15: 02:38 [place] (KENALOG) 00 :00 Medical injection Branch 40 mg NaCl 0.9% 2021-07- No [id number] 4mL Un jareth (NS) 08-18 ity of injection 4 21:15: 02:38 [place] mL 00 :00 Medical Branch bupivacaine 2021-07- No [id number] 5mL [facility] (preserv 08-18 ity of free) 21:15: 02:37 [place] (SENSORCAIN 00 :00 Medical E MPF) 0.25 Branch % (2.5 mg/mL) injection 5 mL bupivacaine 2021-07- No [id number] 5mL 5 mL, [facility] (preserv 08-18 Infiltrati ity of free) 21:15: 02:37 on, ONCE, [place] (SENSORCAIN 00 :00 1 dose, On Me dical E MPF) 0.25 Tue Branch % (2.5 06/18/22 mg/mL) at 1515, injection 5 Routine mL NaCl 0.9% 2021-07- No [id number] 4mL 4 mL, Slow [facility] (NS) 08-18 IV Push, ity of injection 4 21:15: 02:38 ONCE, 1 [place] mL 00 :00 dose, On Medical Tue Branch 06/18/22 at 1515, Routine triamcinolo 2021-07- No [id number] 40mg 40 mg, [facility] ne 08-18 Intramuscu ity of acetonide 21:15: 02:38 lar, ONCE, [place] (KENALOG) 00 :00 1 dose, On Medi guerline injection Tue Branch 40 mg 06/18/22 at 1515, Routine methocarbam 2021-07- No [id number] 500mg Take 1 [facility] oL 500 mg 0-25 11-26 tablet by ity of tablet 00:00: 05:59 mouth [place] 00 :00 every 8 Medical (eight) Branch hours as needed for Other (neck pain/stiff ness) for up to 31 days. methocarbam 2021-07- No [id number] 500mg Take 1 [facility] oL 500 mg 0-25 11-26 tablet by ity of tablet 00:00: 05:59 mouth [place] 00 :00 every 8 Medical (eight) Branch hours as needed for Other (neck pain/stiff ness) for up to 31 days. methocarbam 2021-07- No [id number] 500mg Take 1 [facility] oL 500 mg 0-25 11-26 tablet by ity of tablet 00:00: 05:59 mouth [place] 00 :00 every 8 Medical (eight) Branch hours as needed for Other (neck pain/stiff ness) for up to 31 days. methocarbam 2021-07- No [id number] 500mg Take 1 [facility] oL 500 mg 0-25 11-26 tablet by ity of tablet 00:00: 05:59 mouth [place] 00 :00 every 8 Medical (eight) Branch hours as needed for Other (neck pain/stiff ness) for up to 31 days. methocarbam 2021-07- No [id number] 500mg Take 1 [facility] oL 500 mg 0-25 11-26 tablet by ity of tablet 00:00: 05:59 mouth [place] 00 :00 every 8 Medical (eight) Branch hours as needed for Other (neck pain/stiff ness) for up to 31 days. methocarbam 2021-07- No [id number] 500mg Take 1 [facility] oL 500 mg 0-25 11-26 tablet by ity of tablet 00:00: 05:59 mouth [place] 00 :00 every 8 Medical (eight) Branch hours as needed for Other (neck pain/stiff ness) for up to 31 days. methocarbam 2021-07- No [id number] 500mg Take 1 [facility] oL 500 mg 0-25 11-26 tablet by ity of tablet 00:00: 05:59 mouth [place] 00 :00 every 8 Medical (eight) Branch hours as needed for Other (neck pain/stiff ness) for up to 31 days. iohexol 0 2020- No 120mL 120 mL, Unive rs (OMNIPAQUE 02-24 Intravenou it y of 350 04:15: 04:15 s, ONCE, 1 [place] BULK-150 00 :00 dose, [facility] l mL) 02/24/20 at Branch injection 2315, 120 mL Routine ibuprofen 2019-0 Yes [id number] 800mg Take 1 [facility] n[facility] 800 mg 7-30 tablet by ity of tablet 00:00: mouth [place] 00 every 6 Medical (six) Branch hours as needed for Pain (scale 1-3) or Pain (scale 4-6). ondansetron 2019-0 Yes [id number] 4mg Take 1 [facility] 4 mg 7-30 tablet by ity of disintegrat 00:00: mouth [place] ing tablet 00 every 8 Medica l (eight) Branch hours as needed for Nausea and Vomiting (N/V). dicyclomine 2020-0 Yes [id number] 20mg Take 1 [facility] 20 mg 7-30 tablet by ity of tablet 00:00: mouth 4 [place] 00 (four) Medical times Branch daily as needed for Abdominal pain. ibuprofen 2020-0 Yes [id number] 800mg Take 1 [facility] n[facility] 800 mg 7-30 tablet by ity of tablet 00:00: mouth [place] 00 every 6 Medical (six) Branch hours as needed for Pain (scale 1-3) or Pain (scale 4-6). ondansetron 2020-0 Yes [id number] 4mg Take 1 [facility] 4 mg 7-30 tablet by ity of disintegrat 00:00: mouth [place] ing tablet 00 every 8 Medica l (eight) Branch hours as needed for Nausea and Vomiting (N/V). ibuprofen 2020-0 Yes [id number] 800mg Take 1 [facility] nivers 800 mg 7-30 tablet by ity of tablet 00:00: mouth [place] 00 every 6 Medical (six) Branch hours as needed for Pain (scale 1-3) or Pain (scale 4-6). ondansetron 2020-0 Yes [id number] 4mg Take 1 [facility] 4 mg 7-30 tablet by ity of disintegrat 00:00: mouth [place] ing tablet 00 every 8 Medica l (eight) Branch hours as needed for Nausea and Vomiting (N/V). dicyclomine 2020-0 Yes [id number] 20mg Take 1 [facility] 20 mg 7-30 tablet by ity of tablet 00:00: mouth 4 [place] 00 (four) Medical times Branch daily as needed for Abdominal pain. dicyclomine 2020-0 Yes [id number] 20mg Take 1 [facility] 20 mg 7-30 tablet by ity of tablet 00:00: mouth 4 [place] 00 (four) Medical times Branch daily as needed for Abdominal pain. ibuprofen 2020-0 Yes [id number] 800mg Take 1 [facility] n[facility] 800 mg 7-30 tablet by ity of tablet 00:00: mouth [place] 00 every 6 Medical (six) Branch hours as needed for Pain (scale 1-3) or Pain (scale 4-6). ondansetron 2020-0 Yes [id number] 4mg Take 1 [facility] 4 mg 7-30 tablet by ity of disintegrat 00:00: mouth [place] ing tablet 00 every 8 Medica l (eight) Branch hours as needed for Nausea and Vomiting (N/V). dicyclomine 2020-0 Yes [id number] 20mg Take 1 [facility] 20 mg 7-30 tablet by ity of tablet 00:00: mouth 4 [place] 00 (four) Medical times Branch daily as needed for Abdominal pain. ibuprofen 2020-0 Yes [id number] 800mg Take 1 [facility] n[facility] 800 mg 7-30 tablet by ity of tablet 00:00: mouth [place] 00 every 6 Medical (six) Branch hours as needed for Pain (scale 1-3) or Pain (scale 4-6). ondansetron 2020-0 Yes [id number] 4mg Take 1 [facility] 4 mg 7-30 tablet by ity of disintegrat 00:00: mouth [place] ing tablet 00 every 8 Medica l (eight) Branch hours as needed for Nausea and Vomiting (N/V). dicyclomine 2020-0 Yes [id number] 20mg Take 1 [facility] 20 mg 7-30 tablet by ity of tablet 00:00: mouth 4 [place] 00 (four) Medical times Branch daily as needed for Abdominal pain. ibuprofen 2020-0 Yes [id number] 800mg Take 1 [facility] n[facility] 800 mg 7-30 tablet by ity of tablet 00:00: mouth [place] 00 every 6 Medical (six) Branch hours as needed for Pain (scale 1-3) or Pain (scale 4-6). ondansetron 2020-0 Yes [id number] 4mg Take 1 [facility] 4 mg 7-30 tablet by ity of disintegrat 00:00: mouth [place] ing tablet 00 every 8 Medica l (eight) Branch hours as needed for Nausea and Vomiting (N/V). dicyclomine 2020-0 Yes [id number] 20mg Take 1 [facility] 20 mg 7-30 tablet by ity of tablet 00:00: mouth 4 [place] 00 (four) Medical times Branch daily as needed for Abdominal pain. ibuprofen 2020-0 Yes [id number] 800mg Take 1 [facility] n[facility] 800 mg 7-30 tablet by ity of tablet 00:00: mouth [place] 00 every 6 Medical (six) Branch hours as needed for Pain (scale 1-3) or Pain (scale 4-6). ondansetron 2020-0 Yes [id number] 4mg Take 1 [facility] 4 mg 7-30 tablet by ity of disintegrat 00:00: mouth [place] ing tablet 00 every 8 Medica l (eight) Branch hours as needed for Nausea and Vomiting (N/V). dicyclomine 2020-0 Yes [id number] 20mg Take 1 [facility] 20 mg 7-30 tablet by ity of tablet 00:00: mouth 4 [place] 00 (four) Medical times Branch daily as needed for Abdominal pain. ibuprofen 2020-0 Yes [id number] 800mg Take 1 [facility] n[facility] 800 mg 7-30 tablet by ity of tablet 00:00: mouth [place] 00 every 6 Medical (six) Branch hours as needed for Pain (scale 1-3) or Pain (scale 4-6). ondansetron 2020-0 Yes [id number] 4mg Take 1 [facility] 4 mg 7-30 tablet by ity of disintegrat 00:00: mouth [place] ing tablet 00 every 8 Medica l (eight) Branch hours as needed for Nausea and Vomiting (N/V). dicyclomine 2020-0 Yes [id number] 20mg Take 1 [facility] 20 mg 7-30 tablet by ity of tablet 00:00: mouth 4 [place] 00 (four) Medical times Branch daily as needed for Abdominal pain. ibuprofen 2020-0 Yes [id number] 800mg Take 1 [facility] n[facility] 800 mg 7-30 tablet by ity of tablet 00:00: mouth [place] 00 every 6 Medical (six) Branch hours as needed for Pain (scale 1-3) or Pain (scale 4-6). ondansetron 2020-0 Yes [id number] 4mg Take 1 [facility] 4 mg 7-30 tablet by ity of disintegrat 00:00: mouth [place] ing tablet 00 every 8 Medica l (eight) Branch hours as needed for Nausea and Vomiting (N/V). dicyclomine 2020-0 Yes [id number] 20mg Take 1 [facility] 20 mg 7-30 tablet by ity of tablet 00:00: mouth 4 [place] 00 (four) Medical times Branch daily as needed for Abdominal pain. ibuprofen 2020-0 Yes [id number] 800mg Take 1 [facility] 800 mg 7-30 tablet by ity of tablet 00:00: mouth [place] 00 every 6 Medical (six) Branch hours as needed for Pain (scale 1-3) or Pain (scale 4-6). ondansetron 2020-0 Yes [id number] 4mg Take 1 [facility] 4 mg 7-30 tablet by ity of disintegrat 00:00: mouth [place] ing tablet 00 every 8 Medica l (eight) Branch hours as needed for Nausea and Vomiting (N/V). dicyclomine 2020-0 Yes [id number] 20mg Take 1 [facility] 20 mg 7-30 tablet by ity of tablet 00:00: mouth 4 [place] 00 (four) Medical times Branch daily as needed for Abdominal pain. ibuprofen 2020-0 Yes [id number] 800mg Take 1 [facility] 800 mg 7-30 tablet by ity of tablet 00:00: mouth [place] 00 every 6 Medical (six) Branch hours as needed for Pain (scale 1-3) or Pain (scale 4-6). ondansetron 2020-0 Yes [id number] 4mg Take 1 [facility] 4 mg 7-30 tablet by ity of disintegrat 00:00: mouth [place] ing tablet 00 every 8 Medica l (eight) Branch hours as needed for Nausea and Vomiting (N/V). dicyclomine 2020-0 Yes [id number] 20mg Take 1 [facility] 20 mg 7-30 tablet by ity of tablet 00:00: mouth 4 [place] 00 (four) Medical times Branch daily as needed for Abdominal pain. ibuprofen 2020-0 Yes [id number] 800mg Take 1 [facility] 800 mg 7-30 tablet by ity of tablet 00:00: mouth [place] 00 every 6 Medical (six) Branch hours as needed for Pain (scale 1-3) or Pain (scale 4-6). ondansetron 2020-0 Yes [id number] 4mg Take 1 [facility] 4 mg 7-30 tablet by ity of disintegrat 00:00: mouth [place] ing tablet 00 every 8 Medica l (eight) Branch hours as needed for Nausea and Vomiting (N/V). dicyclomine 2020-0 Yes [id number] 20mg Take 1 [facility] 20 mg 7-30 tablet by ity of tablet 00:00: mouth 4 [place] 00 (four) Medical times Branch daily as needed for Abdominal pain. ibuprofen 2020-0 Yes [id number] 800mg Take 1 [facility] 800 mg 7-30 tablet by ity of tablet 00:00: mouth [place] 00 every 6 Medical (six) Branch hours as needed for Pain (scale 1-3) or Pain (scale 4-6). ondansetron 2020-0 Yes [id number] 4mg Take 1 [facility] 4 mg 7-30 tablet by ity of disintegrat 00:00: mouth [place] ing tablet 00 every 8 Medica l (eight) Branch hours as needed for Nausea and Vomiting (N/V). dicyclomine 2020-0 Yes [id number] 20mg Take 1 [facility] 20 mg 7-30 tablet by ity of tablet 00:00: mouth 4 [place] 00 (four) Medical times Branch daily as needed for Abdominal pain. ibuprofen 2020-0 Yes [id number] 800mg Take 1 [facility] 800 mg 7-30 tablet by ity of tablet 00:00: mouth [place] 00 every 6 Medical (six) Branch hours as needed for Pain (scale 1-3) or Pain (scale 4-6). ondansetron 2020-0 Yes [id number] 4mg Take 1 [facility] 4 mg 7-30 tablet by ity of disintegrat 00:00: mouth [place] ing tablet 00 every 8 Medica l (eight) Branch hours as needed for Nausea and Vomiting (N/V). dicyclomine 2020-0 Yes [id number] 20mg Take 1 [facility] 20 mg 7-30 tablet by ity of tablet 00:00: mouth 4 [place] 00 (four) Medical times Branch daily as needed for Abdominal pain. ibuprofen 2020-0 Yes [id number] 800mg Take 1 [facility] 800 mg 7-30 tablet by ity of tablet 00:00: mouth [place] 00 every 6 Medical (six) Branch hours as needed for Pain (scale 1-3) or Pain (scale 4-6). ondansetron 2020-0 Yes [id number] 4mg Take 1 [facility] 4 mg 7-30 tablet by ity of disintegrat 00:00: mouth [place] ing tablet 00 every 8 Medica l (eight) Branch hours as needed for Nausea and Vomiting (N/V). dicyclomine 2020-0 Yes [id number] 20mg Take 1 [facility] 20 mg 7-30 tablet by ity of tablet 00:00: mouth 4 [place] 00 (four) Medical times Branch daily as needed for Abdominal pain. ibuprofen 2020-0 Yes [id number] 800mg Take 1 [facility] 800 mg 7-30 tablet by ity of tablet 00:00: mouth [place] 00 every 6 Medical (six) Branch hours as needed for Pain (scale 1-3) or Pain (scale 4-6). ondansetron 2020-0 Yes [id number] 4mg Take 1 [facility] 4 mg 7-30 tablet by ity of disintegrat 00:00: mouth [place] ing tablet 00 every 8 Medica l (eight) Branch hours as needed for Nausea and Vomiting (N/V). dicyclomine 2020-0 Yes [id number] 20mg Take 1 [facility] 20 mg 7-30 tablet by ity of tablet 00:00: mouth 4 [place] 00 (four) Medical times Branch daily as needed for Abdominal pain. ibuprofen 2020-0 Yes [id number] 800mg Take 1 [facility] 800 mg 7-30 tablet by ity of tablet 00:00: mouth [place] 00 every 6 Medical (six) Branch hours as needed for Pain (scale 1-3) or Pain (scale 4-6). ondansetron 2020-0 Yes [id number] 4mg Take 1 [facility] 4 mg 7-30 tablet by ity of disintegrat 00:00: mouth [place] ing tablet 00 every 8 Medica l (eight) Branch hours as needed for Nausea and Vomiting (N/V). dicyclomine 2020-0 Yes [id number] 20mg Take 1 [facility] 20 mg 7-30 tablet by ity of tablet 00:00: mouth 4 [place] 00 (four) Medical times Branch daily as needed for Abdominal pain. ibuprofen 2020-0 Yes [id number] 800mg Take 1 [facility] n[facility] 800 mg 7-30 tablet by ity of tablet 00:00: mouth [place] 00 every 6 Medical (six) Branch hours as needed for Pain (scale 1-3) or Pain (scale 4-6). ondansetron 2020-0 Yes [id number] 4mg Take 1 [facility] 4 mg 7-30 tablet by ity of disintegrat 00:00: mouth [place] ing tablet 00 every 8 Medica l (eight) Branch hours as needed for Nausea and Vomiting (N/V). dicyclomine 2020-0 Yes [id number] 20mg Take 1 [facility] 20 mg 7-30 tablet by ity of tablet 00:00: mouth 4 [place] 00 (four) Medical times Branch daily as needed for Abdominal pain. ibuprofen 2020-0 Yes [id number] 800mg Take 1 [facility] n[facility] 800 mg 7-30 tablet by ity of tablet 00:00: mouth [place] 00 every 6 Medical (six) Branch hours as needed for Pain (scale 1-3) or Pain (scale 4-6). ondansetron 2020-0 Yes [id number] 4mg Take 1 [facility] 4 mg 7-30 tablet by ity of disintegrat 00:00: mouth [place] ing tablet 00 every 8 Medica l (eight) Branch hours as needed for Nausea and Vomiting (N/V). dicyclomine 2020-0 Yes [id number] 20mg Take 1 [facility] 20 mg 7-30 tablet by ity of tablet 00:00: mouth 4 [place] 00 (four) Medical times Branch daily as needed for Abdominal pain. ibuprofen 2020-0 Yes [id number] 800mg Take 1 [facility] 800 mg 7-30 tablet by ity of tablet 00:00: mouth [place] 00 every 6 Medical (six) Branch hours as needed for Pain (scale 1-3) or Pain (scale 4-6). ibuprofen 2020-0 Yes [id number] 800mg Take 1 [facility] n[facility] 800 mg 7-30 tablet by ity of tablet 00:00: mouth [place] 00 every 6 Medical (six) Branch hours as needed for Pain (scale 1-3) or Pain (scale 4-6). ondansetron 2020-0 Yes [id number] 4mg Take 1 [facility] 4 mg 7-30 tablet by ity of disintegrat 00:00: mouth [place] ing tablet 00 every 8 Medica l (eight) Branch hours as needed for Nausea and Vomiting (N/V). dicyclomine 2020-0 Yes [id number] 20mg Take 1 [facility] 20 mg 7-30 tablet by ity of tablet 00:00: mouth 4 [place] 00 (four) Medical times Branch daily as needed for Abdominal pain. ondansetron 2020-0 Yes [id number] 4mg Take 1 [facility] 4 mg 7-30 tablet by ity of disintegrat 00:00: mouth [place] ing tablet 00 every 8 Medica l (eight) Branch hours as needed for Nausea and Vomiting (N/V). dicyclomine 2020-0 Yes [id number] 20mg Take 1 [facility] 20 mg 7-30 tablet by ity of tablet 00:00: mouth 4 [place] 00 (four) Medical times Branch daily as needed for Abdominal pain. ibuprofen 2020-0 Yes [id number] 800mg Take 1 [facility] n[facility] 800 mg 7-30 tablet by ity of tablet 00:00: mouth [place] 00 every 6 Medical (six) Branch hours as needed for Pain (scale 1-3) or Pain (scale 4-6). ondansetron 2020-0 Yes [id number] 4mg Take 1 [facility] 4 mg 7-30 tablet by ity of disintegrat 00:00: mouth [place] ing tablet 00 every 8 Medica l (eight) Branch hours as needed for Nausea and Vomiting (N/V). dicyclomine 2020-0 Yes [id number] 20mg Take 1 [facility] 20 mg 7-30 tablet by ity of tablet 00:00: mouth 4 [place] 00 (four) Medical times Branch daily as needed for Abdominal pain. ibuprofen 2020-0 Yes [id number] 800mg Take 1 [facility] n[facility] 800 mg 7-30 tablet by ity of tablet 00:00: mouth [place] 00 every 6 Medical (six) Branch hours as needed for Pain (scale 1-3) or Pain (scale 4-6). ondansetron 2020-0 Yes [id number] 4mg Take 1 [facility] 4 mg 7-30 tablet by ity of disintegrat 00:00: mouth [place] ing tablet 00 every 8 Medica l (eight) Branch hours as needed for Nausea and Vomiting (N/V). dicyclomine 2020-0 Yes [id number] 20mg Take 1 [facility] 20 mg 7-30 tablet by ity of tablet 00:00: mouth 4 [place] 00 (four) Medical times Branch daily as needed for Abdominal pain. ibuprofen 2020-0 Yes [id number] 800mg Take 1 [facility] 800 mg 7-30 tablet by ity of tablet 00:00: mouth [place] 00 every 6 Medical (six) Branch hours as needed for Pain (scale 1-3) or Pain (scale 4-6). ondansetron 2020-0 Yes [id number] 4mg Take 1 [facility] 4 mg 7-30 tablet by ity of disintegrat 00:00: mouth [place] ing tablet 00 every 8 Medica l (eight) Branch hours as needed for Nausea and Vomiting (N/V). dicyclomine 2020-0 Yes [id number] 20mg Take 1 [facility] 20 mg 7-30 tablet by ity of tablet 00:00: mouth 4 [place] 00 (four) Medical times Branch daily as needed for Abdominal pain. ibuprofen 2020-0 Yes [id number] 800mg Take 1 [facility] n[facility] 800 mg 7-30 tablet by ity of tablet 00:00: mouth [place] 00 every 6 Medical (six) Branch hours as needed for Pain (scale 1-3) or Pain (scale 4-6). ondansetron 2020-0 Yes [id number] 4mg Take 1 [facility] 4 mg 7-30 tablet by ity of disintegrat 00:00: mouth [place] ing tablet 00 every 8 Medica l (eight) Branch hours as needed for Nausea and Vomiting (N/V). dicyclomine 2020-0 Yes [id number] 20mg Take 1 [facility] 20 mg 7-30 tablet by [facility] tablet 00:00: mouth 4 [place] 00 (four) Medical times Branch daily as needed for Abdominal pain. ibuprofen 2020-0 Yes [id number] 800mg Take 1 [facility] 800 mg 7-30 tablet by [facility] of tablet 00:00: mouth [place] 00 every 6 Medical (six) Branch hours as needed for Pain (scale 1-3) or Pain (scale 4-6). ondansetron 2020-0 Yes [id number] 4mg Take 1 [facility] 4 mg 7-30 tablet by [facility] of disintegrat 00:00: mouth [place] ing tablet 00 every 8 Medica l (eight) Branch hours as needed for Nausea and Vomiting (N/V). dicyclomine 2020-0 Yes [id number] 20mg Take 1 [facility] 20 mg 7-30 tablet by [facility] of tablet 00:00: mouth 4 00 (four) Medical times Branch daily as needed for Abdominal pain. ibuprofen 2020-0 Yes [id number] 800mg Take 1 [facility] 800 mg 7-30 tablet by [facility] of tablet 00:00: mouth [place] 00 every 6 Medical (six) Branch hours as needed for Pain (scale 1-3) or Pain (scale 4-6). ondansetron 2020-0 Yes [id number] 4mg Take 1 [facility] 4 mg 7-30 tablet by [facility] of disintegrat 00:00: mouth [place] ing tablet 00 every 8 Medica l (eight) Branch hours as needed for Nausea and Vomiting (N/V). dicyclomine 2020-0 Yes [id number] 20mg Take 1 [facility] 20 mg 7-30 tablet by [facility] of tablet 00:00: mouth 4 [place] 00 (four) Medical times Branch daily as needed for Abdominal pain. ibuprofen 2020-0 Yes [id number] 800mg Take 1 [facility] 800 mg 7-30 tablet by [facility] of tablet 00:00: mouth [place] 00 every 6 Medical (six) Branch hours as needed for Pain (scale 1-3) or Pain (scale 4-6). ondansetron 2020-0 Yes [id number] 4mg Take 1 [facility] 4 mg 7-30 tablet by [facility] of disintegrat 00:00: mouth [place] ing tablet 00 every 8 Medica l (eight) Branch hours as needed for Nausea and Vomiting (N/V). dicyclomine 2020-0 Yes [id number] 20mg Take 1 [facility] 20 mg 7-30 tablet by [facility] of tablet 00:00: mouth 4 [place] 00 (four) Medical times Branch daily as needed for Abdominal pain. ibuprofen 2020-0 Yes [id number] 800mg Take 1 [facility] 800 mg 7-30 tablet by [facility] of tablet 00:00: mouth [place] 00 every 6 Medical (six) Branch hours as needed for Pain (scale 1-3) or Pain (scale 4-6). ondansetron 2020-0 Yes [id number] 4mg Take 1 [facility] 4 mg 7-30 tablet by [facility] of disintegrat 00:00: mouth [place] ing tablet 00 every 8 Medica l (eight) Branch hours as needed for Nausea and Vomiting (N/V). dicyclomine 2020-0 Yes [id number] 20mg Take 1 [facility] 20 mg 7-30 tablet by [facility] of tablet 00:00: mouth 4 [place] 00 (four) Medical times Branch daily as needed for Abdominal pain. ibuprofen 2020-0 Yes [id number] 800mg Take 1 [facility] 800 mg 7-30 tablet by [facility] of tablet 00:00: mouth [place] 00 every 6 Medical (six) Branch hours as needed for Pain (scale 1-3) or Pain (scale 4-6). ondansetron 2020-0 Yes [id number] 4mg Take 1 [facility] 4 mg 7-30 tablet by [facility] of disintegrat 00:00: mouth [place] ing tablet 00 every 8 Medica l (eight) Branch hours as needed for Nausea and Vomiting (N/V). dicyclomine 2020-0 Yes [id number] 20mg Take 1 [facility] 20 mg 7-30 tablet by [facility] of tablet 00:00: mouth 4 [place] 00 (four) Medical times Branch daily as needed for Abdominal pain. ibuprofen 2020-0 Yes [id number] 800mg Take 1 [facility] 800 mg 7-30 tablet by [facility] of tablet 00:00: mouth [place] 00 every 6 Medical (six) Branch hours as needed for Pain (scale 1-3) or Pain (scale 4-6). ondansetron 2020-0 Yes [id number] 4mg Take 1 [facility] 4 mg 7-30 tablet by [facility] of disintegrat 00:00: mouth [place] ing tablet 00 every 8 Medica l (eight) Branch hours as needed for Nausea and Vomiting (N/V). dicyclomine 2020-0 Yes [id number] 20mg Take 1 [facility] 20 mg 7-30 tablet by [facility] of tablet 00:00: mouth 4 [place] 00 (four) Medical times Branch daily as needed for Abdominal pain. ibuprofen 2020-0 Yes [id number] 800mg Take 1 [facility] 800 mg 7-30 tablet by [facility] of tablet 00:00: mouth [place] 00 every 6 Medical (six) Branch hours as needed for Pain (scale 1-3) or Pain (scale 4-6). ondansetron 2020-0 Yes [id number] 4mg Take 1 [facility] 4 mg 7-30 tablet by [facility] of disintegrat 00:00: mouth [place] ing tablet 00 every 8 Medica l (eight) Branch hours as needed for Nausea and Vomiting (N/V). dicyclomine 2020-0 Yes [id number] 20mg Take 1 [facility] 20 mg 7-30 tablet by [facility] of tablet 00:00: mouth 4 [place] 00 (four) Medical times Branch daily as needed for Abdominal pain. ibuprofen 2020-0 Yes [id number] 800mg Take 1 [facility] 800 mg 7-30 tablet by [facility] of tablet 00:00: mouth [place] 00 every 6 Medical (six) Branch hours as needed for Pain (scale 1-3) or Pain (scale 4-6). ondansetron 2020-0 Yes [id number] 4mg Take 1 [facility] 4 mg 7-30 tablet by [facility] of disintegrat 00:00: mouth [place] ing tablet 00 every 8 Medica l (eight) Branch hours as needed for Nausea and Vomiting (N/V). dicyclomine 2020-0 Yes [id number] 20mg Take 1 [facility] 20 mg 7-30 tablet by [facility] of tablet 00:00: mouth 4 [place] 00 (four) Medical times Branch daily as needed for Abdominal pain. ibuprofen 2020-0 Yes [id number] 800mg Take 1 [facility] 800 mg 7-30 tablet by [facility] of tablet 00:00: mouth [place] 00 every 6 Medical (six) Branch hours as needed for Pain (scale 1-3) or Pain (scale 4-6). ondansetron 2020-0 Yes [id number] 4mg Take 1 [facility] 4 mg 7-30 tablet by [facility] of disintegrat 00:00: mouth [place] ing tablet 00 every 8 Medica l (eight) Branch hours as needed for Nausea and Vomiting (N/V). dicyclomine 2020-0 Yes [id number] 20mg Take 1 [facility] 20 mg 7-30 tablet by [facility] of tablet 00:00: mouth 4 [place] 00 (four) Medical times Branch daily as needed for Abdominal pain. ibuprofen 2020-0 Yes [id number] 800mg Take 1 [facility] 800 mg 7-30 tablet by [facility] of tablet 00:00: mouth [place] 00 every 6 Medical (six) Branch hours as needed for Pain (scale 1-3) or Pain (scale 4-6). ondansetron 2020-0 Yes [id number] 4mg Take 1 [facility] 4 mg 7-30 tablet by [facility] of disintegrat 00:00: mouth [place] ing tablet 00 every 8 Medica l (eight) Branch hours as needed for Nausea and Vomiting (N/V). dicyclomine 2020-0 Yes [id number] 20mg Take 1 [facility] 20 mg 7-30 tablet by [facility] of tablet 00:00: mouth 4 [place] 00 (four) Medical times Branch daily as needed for Abdominal pain. ibuprofen 2020-0 Yes [id number] 800mg Take 1 [facility] 800 mg 7-30 tablet by [facility] of tablet 00:00: mouth [place] 00 every 6 Medical (six) Branch hours as needed for Pain (scale 1-3) or Pain (scale 4-6). ondansetron 2020-0 Yes [id number] 4mg Take 1 [facility] 4 mg 7-30 tablet by [facility] of disintegrat 00:00: mouth [place] ing tablet 00 every 8 Medica l (eight) Branch hours as needed for Nausea and Vomiting (N/V). dicyclomine 2020-0 Yes [id number] 20mg Take 1 [facility] 20 mg 7-30 tablet by [facility] of tablet 00:00: mouth 4 [place] 00 (four) Medical times Branch daily as needed for Abdominal pain. ibuprofen 2020-0 Yes [id number] 800mg Take 1 [facility] 800 mg 7-30 tablet by [facility] of tablet 00:00: mouth [place] 00 every 6 Medical (six) Branch hours as needed for Pain (scale 1-3) or Pain (scale 4-6). ondansetron 2020-0 Yes [id number] 4mg Take 1 [facility] 4 mg 7-30 tablet by [facility] of disintegrat 00:00: mouth [place] ing tablet 00 every 8 Medica l (eight) Branch hours as needed for Nausea and Vomiting (N/V). dicyclomine 2020-0 Yes [id number] 20mg Take 1 [facility] 20 mg 7-30 tablet by [facility] of tablet 00:00: mouth 4 [place] 00 (four) Medical times Branch daily as needed for Abdominal pain. ibuprofen 2020-0 Yes [id number] 800mg Take 1 [facility] 800 mg 7-30 tablet by [facility] of tablet 00:00: mouth [place] 00 every 6 Medical (six) Branch hours as needed for Pain (scale 1-3) or Pain (scale 4-6). ondansetron 2020-0 Yes [id number] 4mg Take 1 [facility] 4 mg 7-30 tablet by [facility] of disintegrat 00:00: mouth [place] ing tablet 00 every 8 Medica l (eight) Branch hours as needed for Nausea and Vomiting (N/V). dicyclomine 2020-0 Yes [id number] 20mg Take 1 [facility] 20 mg 7-30 tablet by [facility] of tablet 00:00: mouth 4 [place] 00 (four) Medical times Branch daily as needed for Abdominal pain. ibuprofen 2020-0 Yes [id number] 800mg Take 1 [facility] 800 mg 7-30 tablet by [facility] of tablet 00:00: mouth [place] 00 every 6 Medical (six) Branch hours as needed for Pain (scale 1-3) or Pain (scale 4-6). ondansetron 2020-0 Yes [id number] 4mg Take 1 [facility] 4 mg 7-30 tablet by [facility] of disintegrat 00:00: mouth [place] ing tablet 00 every 8 Medica l (eight) Branch hours as needed for Nausea and Vomiting (N/V). dicyclomine 2020-0 Yes [id number] 20mg Take 1 [facility] 20 mg 7-30 tablet by [facility] of tablet 00:00: mouth 4 [place] (four) Medical times Branch daily as needed for Abdominal pain. ibuprofen 2020-0 Yes [id number] 800mg Take 1 [facility] 800 mg 7-30 tablet by [facility] of tablet 00:00: mouth [place] 00 every 6 Medical (six) Branch hours as needed for Pain (scale 1-3) or Pain (scale 4-6). ondansetron 2020-0 Yes [id number] 4mg Take 1 [facility] 4 mg 7-30 tablet by [facility] of disintegrat 00:00: mouth [place] ing tablet 00 every 8 Medica l (eight) Branch hours as needed for Nausea and Vomiting (N/V). dicyclomine 2020-0 Yes [id number] 20mg Take 1 [facility] 20 mg 7-30 tablet by [facility] of tablet 00:00: mouth 4 [place] 00 (four) Medical times Branch daily as needed for Abdominal pain. ibuprofen 2020-0 Yes [id number] 800mg Take 1 [facility] 800 mg 7-30 tablet by [facility] of tablet 00:00: mouth [place] 00 every 6 Medical (six) Branch hours as needed for Pain (scale 1-3) or Pain (scale 4-6). ondansetron 2020-0 Yes [id number] 4mg Take 1 [facility] 4 mg 7-30 tablet by [facility] of disintegrat 00:00: mouth [place] ing tablet 00 every 8 Medica l (eight) Branch hours as needed for Nausea and Vomiting (N/V). dicyclomine 2020-0 Yes [id number] 20mg Take 1 [facility] 20 mg 7-30 tablet by [facility] of tablet 00:00: mouth 4 [place] 00 (four) Medical times Branch daily as needed for Abdominal pain. ibuprofen 2020-0 Yes [id number] 800mg Take 1 [facility] 800 mg 7-30 tablet by [facility] of tablet 00:00: mouth [place] 00 every 6 Medical (six) Branch hours as needed for Pain (scale 1-3) or Pain (scale 4-6). ondansetron 2020-0 Yes [id number] 4mg Take 1 [facility] 4 mg 7-30 tablet by [facility] of disintegrat 00:00: mouth [place] ing tablet 00 every 8 Medica l (eight) Branch hours as needed for Nausea and Vomiting (N/V). dicyclomine 2020-0 Yes [id number] 20mg Take 1 [facility] 20 mg 7-30 tablet by [facility] of tablet 00:00: mouth 4 [place] 00 (four) Medical times Branch daily as needed for Abdominal pain. ibuprofen 2020-0 Yes [id number] 800mg Take 1 [facility] 800 mg 7-30 tablet by [facility] of tablet 00:00: mouth [place] 00 every 6 Medical (six) Branch hours as needed for Pain (scale 1-3) or Pain (scale 4-6). ibuprofen 2020-0 Yes [id number] 800mg Take 1 [facility] 800 mg 7-30 tablet by [facility] of tablet 00:00: mouth [place] 00 every 6 Medical (six) Branch hours as needed for Pain (scale 1-3) or Pain (scale 4-6). ondansetron 2020-0 Yes [id number] 4mg Take 1 [facility] 4 mg 7-30 tablet by [facility] of disintegrat 00:00: mouth [place] ing tablet 00 every 8 Medica l (eight) Branch hours as needed for Nausea and Vomiting (N/V). dicyclomine 2020-0 Yes [id number] 20mg Take 1 [facility] 20 mg 7-30 tablet by [facility] of tablet 00:00: mouth 4 [place] 00 (four) Medical times Branch daily as needed for Abdominal pain. ondansetron 2020-0 Yes [id number] 4mg Take 1 [facility] 4 mg 7-30 tablet by [facility] of disintegrat 00:00: mouth [place] ing tablet 00 every 8 Medica l (eight) Branch hours as needed for Nausea and Vomiting (N/V). dicyclomine 2020-0 Yes [id number] 20mg Take 1 [facility] 20 mg 7-30 tablet by [facility] of tablet 00:00: mouth 4 [place] 00 (four) Medical times Branch daily as needed for Abdominal pain. ibuprofen 2020-0 Yes [id number] 800mg Take 1 [facility] 800 mg 7-30 tablet by [facility] of tablet 00:00: mouth [place] 00 every 6 Medical (six) Branch hours as needed for Pain (scale 1-3) or Pain (scale 4-6). ondansetron 2020-0 Yes [id number] 4mg Take 1 [facility] 4 mg 7-30 tablet by [facility] of disintegrat 00:00: mouth [place] ing tablet 00 every 8 Medica l (eight) Branch hours as needed for Nausea and Vomiting (N/V). dicyclomine 2020-0 Yes [id number] 20mg Take 1 [facility] 20 mg 7-30 tablet by [facility] of tablet 00:00: mouth 4 [place] 00 (four) Medical times Branch daily as needed for Abdominal pain. ibuprofen 2020-0 Yes [id number] 800mg Take 1 [facility] 800 mg 7-30 tablet by [facility] of tablet 00:00: mouth [place] 00 every 6 Medical (six) Branch hours as needed for Pain (scale 1-3) or Pain (scale 4-6). ondansetron 2020-0 Yes [id number] 4mg Take 1 [facility] 4 mg 7-30 tablet by [facility] of disintegrat 00:00: mouth [place] ing tablet 00 every 8 Medica l (eight) Branch hours as needed for Nausea and Vomiting (N/V). dicyclomine 2020-0 Yes [id number] 20mg Take 1 [facility] 20 mg 7-30 tablet by [facility] of tablet 00:00: mouth 4 [place] 00 (four) Medical times Branch daily as needed for Abdominal pain. ibuprofen 2020-0 Yes [id number] 800mg Take 1 [facility] 800 mg 7-30 tablet by [facility] of tablet 00:00: mouth [place] 00 every 6 Medical (six) Branch hours as needed for Pain (scale 1-3) or Pain (scale 4-6). ondansetron 2020-0 Yes [id number] 4mg Take 1 [facility] 4 mg 7-30 tablet by ity of disintegrat 00:00: mouth [place] ing tablet 00 every 8 Medica l (eight) Branch hours as needed for Nausea and Vomiting (N/V). dicyclomine 2020-0 Yes [id number] 20mg Take 1 [facility] 20 mg 7-30 tablet by [facility] of tablet 00:00: mouth 4 [place] 00 (four) Medical times Branch daily as needed for Abdominal pain. ibuprofen 2020-0 Yes [id number] 800mg Take 1 [facility] 800 mg 7-30 tablet by [facility] of tablet 00:00: mouth [place] 00 every 6 Medical (six) Branch hours as needed for Pain (scale 1-3) or Pain (scale 4-6). ondansetron 2020-0 Yes [id number] 4mg Take 1 [facility] 4 mg 7-30 tablet by [facility] of disintegrat 00:00: mouth [place] ing tablet 00 every 8 Medica l (eight) Branch hours as needed for Nausea and Vomiting (N/V). dicyclomine 2020-0 Yes [id number] 20mg Take 1 [facility] 20 mg 7-30 tablet by [facility] of tablet 00:00: mouth 4 [place] 00 (four) Medical times Branch daily as needed for Abdominal pain. dicyclomine 2020-0 2020- No [id number] 20mg Take 1 [facility] 20 mg 7-30 07-30 tablet by [facility] of tablet 00:00: 00:00 mouth 4 [place] 00 :00 (four) Medical times Branch daily as needed for Abdominal pain. ALBUTEROL 2016-07 Yes Inhale. Unive rs INHALE 0-04 ity of 00:05: [address] ALBUTEROL 2016-07 Yes Inhale. Unive rs INHALE 0-03 ity of 19:05: [address] ALBUTEROL 2016-07 Yes Inhale. Unive rs INHALE 0-03 ity of 19:05: [address] ALBUTEROL 2016-07 Yes Inhale. Unive rs INHALE 0-03 ity of 19:05: [address] ALBUTEROL 2016-07 Yes Inhale. Unive rs INHALE 0-03 ity of 19:05: [address] ALBUTEROL 2016-07 Yes Inhale. Unive rs INHALE 0-03 ity of 19:05: [address] ALBUTEROL 2016-07 Yes Inhale. Unive rs INHALE 0-03 ity of 19:05: [address] ALBUTEROL 2016-07 Yes Inhale. Unive rs INHALE 0-03 ity of 19:05: [address] ALBUTEROL 2016-07 Yes Inhale. Unive rs INHALE 0-03 ity of 19:05: [address] ALBUTEROL 2016-07 Yes Inhale. Unive rs INHALE 0-03 ity of 19:05: [address] ALBUTEROL 2016-07 Yes Inhale. Unive rs INHALE 0-03 ity of 19:05: [address] ALBUTEROL 2016-07 Yes Inhale. Unive rs INHALE 0-03 ity of 19:05: [address] ALBUTEROL 2016-07 Yes Inhale. Unive rs INHALE 0-03 ity of 19:05: [address] ALBUTEROL 2016-07 Yes Inhale. Unive rs INHALE 0-03 ity of 19:05: [address] ALBUTEROL 2016-07 Yes Inhale. Unive rs INHALE 0-03 ity of 19:05: [address] ALBUTEROL 2016-07 Yes Inhale. Unive rs INHALE 0-03 ity of 19:05: [address] ALBUTEROL 2016-07 Yes Inhale. Unive rs INHALE 0-03 ity of 19:05: [address] ALBUTEROL 2016-07 Yes Inhale. Unive rs INHALE 0-03 ity of 19:05: [address] ALBUTEROL 2016-07 Yes Inhale. Unive rs INHALE 0-03 ity of 19:05: [address] ALBUTEROL 2016-07 Yes Inhale. Unive rs INHALE 0-03 ity of 19:05: [address] ALBUTEROL 2016-07 Yes Inhale. Unive rs INHALE 0-03 ity of 19:05: [address] ALBUTEROL 2016-07 Yes Inhale. Unive rs INHALE 0-03 ity of 19:05: [address] ALBUTEROL 2016-07 Yes Inhale. Unive rs INHALE 0-03 ity of 19:05: [address] ALBUTEROL 2016-07 Yes Inhale. Unive rs INHALE 0-03 ity of 19:05: [address] ALBUTEROL 2016-07 Yes Inhale. Unive rs INHALE 0-03 ity of 19:05: [address] ALBUTEROL 2016-07 Yes Inhale. Unive rs INHALE 0-03 ity of 19:05: [address] ALBUTEROL 2016-07 Yes Inhale. Unive rs INHALE 0-03 ity of 19:05: [address] ALBUTEROL 2016-07 Yes Inhale. Unive rs INHALE 0-03 ity of 19:05: [address] ALBUTEROL 2016-07 Yes Inhale. Unive rs INHALE 0-03 ity of 19:05: [address] ALBUTEROL 2016-07 Yes Inhale. Unive rs INHALE 0-03 ity of 19:05: [address] ALBUTEROL 2016-07 Yes Inhale. Unive rs INHALE 0-03 ity of 19:05: [address] ALBUTEROL 2016-07 Yes Inhale. Unive rs INHALE 0-03 ity of 19:05: [address] ALBUTEROL 2016-07 Yes Inhale. Unive rs INHALE 0-03 ity of 19:05: [address] ALBUTEROL 2016-07 Yes Inhale. Unive rs INHALE 0-03 ity of 19:05: [address] ALBUTEROL 2016-07 Yes Inhale. Unive rs INHALE 0-03 ity of 19:05: [address] ALBUTEROL 2016-07 Yes Inhale. Unive rs INHALE 0-03 ity of 19:05: [address] ALBUTEROL 2016-07 Yes Inhale. Unive rs INHALE 0-03 ity of 19:05: [address] ALBUTEROL 2016-07 Yes Inhale. Unive rs INHALE 0-03 ity of 19:05: [address] ALBUTEROL 2016-07 Yes Inhale. Unive rs INHALE 0-03 ity of 19:05: [address] ALBUTEROL 2016-07 Yes Inhale. Unive rs INHALE 0-03 ity of 19:05: [address] ALBUTEROL 2016-07 Yes Inhale. Unive rs INHALE 0-03 ity of 19:05: [address] ALBUTEROL 2016-07 Yes Inhale. Unive rs INHALE 0-03 ity of 19:05: [address] ALBUTEROL 2016-07 Yes Inhale. Unive rs INHALE 0-03 ity of 19:05: [address] ALBUTEROL 2016-07 Yes Inhale. Unive rs INHALE 0-03 ity of 19:05: [address] ALBUTEROL 2016-07 Yes Inhale. Unive rs INHALE 0-03 ity of 19:05: [address] ALBUTEROL 2016-07 Yes Inhale. Unive rs INHALE 0-03 ity of 19:05: [address] ALBUTEROL 2016-07 Yes Inhale. Unive rs INHALE 0-03 ity of 19:05: [address] ALBUTEROL 2016-07 Yes Inhale. Unive rs INHALE 0-03 ity of 19:05: [address] cephALEXin 2015-07 Yes 500mg Take 1 [facility] ers (KEFLEX) 0-27 capsule by ity o f 500 mg 00:00: mouth 4 [place] capsule 00 (four) Medical times Branch daily. acetaminoph 2015-07 Yes 1{tbl} Take 1 Un [...] capsule 00 (four) Medical times Branch daily. docusate 2015-07 Yes 100mg Take 1 Univer [...] capsule 00 (four) Medical times Branch daily. docusate 2015-07 Yes 100mg Take 1 Univer [...] capsule 00 (four) Medical times Branch daily. docusate 2015-07 Yes 100mg Take 1 Univer [...] capsule 00 (four) Medical times Branch daily. docusate 2015-07 Yes 100mg Take 1 Univer [...] capsule 00 (four) Medical times Branch daily. docusate 2015-07 Yes 100mg Take 1 Univer [...] capsule 00 (four) Medical times Branch daily. docusate 2015-07 Yes 100mg Take 1 Univer [...] capsule 00 (four) Medical times Branch daily. docusate 2015-07 Yes 100mg Take 1 Univer [...] capsule 00 (four) Medical times Branch daily. docusate 2015-07 Yes 100mg Take 1 Univer [...] capsule 00 (four) Medical times Branch daily. docusate 2015-07 Yes 100mg Take 1 Univer s (COLACE) 0-27 capsule by ity o f 100 mg 00:00: mouth [place] capsule 00 daily. Medical Branch acetaminoph 2015-07 Yes 1{tbl} Take 1 Un jareth en-codeine 0-27 tablet by ity of (TYLENOL-CO 00:00: mouth [place] DEINE #3) 00 every 4 Medical 300-30 mg (four) Branch tablet hours as needed for Pain (scale 7-10). docusate 2015-07 Yes 100mg Take 1 Univer [...] capsule 00 (four) Medical times Branch daily. cephALEXin 2015-07 Yes 500mg Take 1 [facility] ers (KEFLEX) 0-27 capsule by ity o f 500 mg 00:00: mouth 4 [place] capsule 00 (four) Medical times Branch daily. docusate 2015-07 Yes 100mg Take 1 Univer [...] capsule 00 (four) Medical times Branch daily. docusate 2015-07 Yes 100mg Take 1 Univer [...] capsule 00 (four) Medical times Branch daily. docusate 2015-07 Yes 100mg Take 1 Univer [...] capsule 00 (four) Medical times Branch daily. docusate 2015-07 Yes 100mg Take 1 Univer [...] capsule 00 (four) Medical times Branch daily. docusate 2015-07 Yes 100mg Take 1 Univer [...] capsule 00 (four) Medical times Branch daily. docusate 2015-07 Yes 100mg Take 1 Univer s (COLACE) 0-27 capsule by ity o f 100 mg 00:00: mouth [place] capsule 00 daily. Medical Branch docusate 2015-07 Yes 100mg Take 1 [...] capsule 00 (four) Medical times Branch daily. acetaminoph 2015-07 Yes 1{tbl} Take 1 Un [...] capsule 00 (four) Medical times Branch daily. docusate 2015-07 Yes 100mg Take 1 Univer [...] capsule 00 (four) Medical times Branch daily. docusate 2015-07 Yes 100mg Take 1 Univer s (COLACE) 0-27 capsule by ity o f 100 mg 00:00: mouth [place] capsule 00 daily. Medical Branch acetaminoph 2016-1 Yes 1{tbl} Take 1 Un jareth en-codeine 0-27 tablet by ity of (TYLENOL-CO 00:00: mouth [place] DEINE #3) 00 every 4 Medical 300-30 mg (four) Branch tablet hours as needed for Pain (scale 7-10). cephALEXin 2015-07 Yes 500mg Take 1 [facility] ers (KEFLEX) 0-27 capsule by ity o f 500 mg 00:00: mouth 4 [place] capsule 00 (four) Medical times Branch daily. docusate 2015-07 Yes 100mg Take 1 Univer [...] capsule 00 (four) Medical times Branch daily. docusate 2015-07 Yes 100mg Take 1 Univer [...] capsule 00 (four) Medical times Branch daily. docusate 2015-07 Yes 100mg Take 1 Univer [...] capsule 00 (four) Medical times Branch daily. docusate 2015-07 Yes 100mg Take 1 Univer [...] capsule 00 (four) Medical times Branch daily. docusate 2015-07 Yes 100mg Take 1 Univer [...] capsule 00 (four) Medical times Branch daily. docusate 2015-07 Yes 100mg Take 1 Univer [...] capsule 00 (four) Medical times Branch daily. docusate 2015-07 Yes 100mg Take 1 Univer [...] capsule 00 (four) Medical times Branch daily. docusate 2015-07 Yes 100mg Take 1 Univer [...] capsule 00 (four) Medical times Branch daily. docusate 2015-07 Yes 100mg Take 1 Univer [...] capsule 00 (four) Medical times Branch daily. docusate 2015-07 Yes 100mg Take 1 Univer [...] capsule 00 (four) Medical times Branch daily. docusate 2015-07 Yes 100mg Take 1 Univer [...] capsule 00 (four) Medical times Branch daily. docusate 2015-07 Yes 100mg Take 1 Univer [...] capsule 00 (four) Medical times Branch daily. docusate 2015-07 Yes 100mg Take 1 Univer [...] capsule 00 (four) Medical times Branch daily. docusate 2015-07 Yes 100mg Take 1 Univer [...] capsule 00 (four) Medical times Branch daily. docusate 2015-07 Yes 100mg Take 1 Univer [...] capsule 00 (four) Medical times Branch daily. docusate 2015-07 Yes 100mg Take 1 Univer [...] capsule 00 (four) Medical times Branch daily. docusate 2015-07 Yes 100mg Take 1 Univer [...] capsule 00 (four) Medical times Branch daily. docusate 2015-07 Yes 100mg Take 1 Univer [...] capsule 00 (four) Medical times Branch daily. docusate 2015-07 Yes 100mg Take 1 Univer [...] capsule 00 (four) Medical times Branch daily. docusate 2015-07 Yes 100mg Take 1 Univer [...] capsule 00 (four) Medical times Branch daily. docusate 2015-07 Yes 100mg Take 1 Univer s (COLACE) 0-27 capsule by ity o f 100 mg 00:00: mouth [place] capsule 00 daily. Medical Branch acetaminoph 2015-07 Yes 1{tbl} Take 1 Un jareth en-codeine 0-27 tablet by ity of (TYLENOL-CO 00:00: mouth [place] DEINE #3) 00 every 4 Medical 300-30 mg (four) Branch tablet hours as needed for Pain (scale 7-10). docusate 2015-07 Yes 100mg Take 1 Univer [...] capsule 00 (four) Medical times Branch daily. cephALEXin 2015-07 Yes 500mg Take 1 [facility] ers (KEFLEX) 0-27 capsule by ity o f 500 mg 00:00: mouth 4 [place] capsule 00 (four) Medical times Branch daily. docusate 2015-07 Yes 100mg Take 1 Univer [...] capsule 00 (four) Medical times Branch daily. docusate 2015-07 Yes 100mg Take 1 Univer s (COLACE) 0-27 capsule by ity o f 100 mg 00:00: mouth [place] capsule 00 daily. Medical Branch [facility] 2015-07 Yes 1{tbl} Take 1 Un jareth en-codeine 0-27 tablet by ity of (TYLENOL-CO 00:00: mouth [place] DEINE #3) 00 every 4 Medical 300-30 mg (four) Branch tablet hours as needed for Pain (scale 7-10). cephALEXin 2015-07 Yes 500mg Take 1 [facility] ers (KEFLEX) 0-27 capsule by ity o f 500 mg 00:00: mouth 4 [place] capsule 00 (four) Medical times Branch daily. docusate 2015-07 Yes 100mg Take 1 Univer [...] capsule 00 (four) Medical times Branch daily. docusate 2015-07 Yes 100mg Take 1 Univer [...] capsule 00 (four) Medical times Branch daily. docusate 2015-07 Yes 100mg Take 1 Univer [...] capsule 00 (four) Medical times Branch daily. docusate 2015-07 Yes 100mg Take 1 Univer s (COLACE) 0-27 capsule by ity o f 100 mg 00:00: mouth [place] capsule 00 daily. Medical Branch acetaminoph 2015-07 Yes 1{tbl} Take 1 Un jareth en-codeine 0-27 tablet by ity of (TYLENOL-CO 00:00: mouth [place] DEINE #3) 00 every 4 Medical 300-30 mg (four) Branch tablet hours as needed for Pain (scale 7-10). docusate 2015-07 Yes 100mg Take 1 Univer s (COLACE) 0-27 capsule by ity o f 100 mg 00:00: mouth [place] capsule 00 daily. Medical Branch ferrous Yes 325mg Take 1 [facility] sulfate [...] 1mg Take 1 Un[facility] rs (FOLATE) 1 9-29 tablet by ity of mg tablet 00:00: mouth [place] 00 daily. Medical Branch enoxaparin Yes 70.5mg inject Uni vers (LOVENOX) 9-29 0.47 mL ity of 150 mg/mL 00:00: under the [place] [facility] injection 00 skin every Medi guerline 12 Branch (twelve) hours. docusate Yes 240mg Take 1 [facility] s calcium 9-29 capsule by ity of (SURFAK) 00:00: mouth once [place] [facility] 240 mg 00 daily as Medical capsule needed for Branch Constipati on. ferrous Yes 325mg Take 1 [facility] sulfate 325 9-29 tablet by ity of mg (65 mg 00:00: mouth 2 [place] iron) 00 (two) Medical tablet times Branch daily. Yes 1{tbl} Take 1 [...] hours for all acetaminop hen containing products. acetaminoph 2015- Yes 1{tbl} Take 1-2 [facility] en-codeine 9-29 [...] 1mg Take 1 [facility] rs (FOLATE) 1 9-29 tablet by ity of mg tablet 00:00: mouth [place] 00 daily. Medical Branch enoxaparin Yes 70.5mg inject Uni vers (LOVENOX) 9-29 0.47 mL ity of 150 mg/mL 00:00: under the [place] [facility] injection 00 skin every Medi guerline 12 Branch (twelve) hours. foLIC acid Yes 1mg Take 1 [facility] rs (FOLATE) 1 9-29 tablet by ity of mg tablet 00:00: mouth [place] 00 daily. Medical Branch 0 Yes 1{tbl} Take 1 Un[facility] rs vitamin 9-29 tablet by ity of w/FA 00:00: mouth [place] (PRENATABS 00 daily. Medical RX) tablet Branch docusate Yes 240mg Take 1 [facility] s calcium 9-29 capsule by ity of (SURFAK) 00:00: mouth once [place] 240 mg 00 daily as Medical capsule needed for Branch Constipati on. enoxaparin 0 Yes 70.5mg inject Uni vers (LOVENOX) 9-29 0.47 mL ity of 150 mg/mL 00:00: under the [place] [facility] injection 00 skin every Medi guerline 12 Branch (twelve) hours. ferrous 2016-0 Yes 325mg Take 1 [facility] sulfate 325 [...] 1mg Take 1 [facility] rs (FOLATE) 1 9-29 tablet by ity of mg tablet 00:00: mouth [place] 00 daily. Medical Branch enoxaparin Yes 70.5mg inject [facility] vers (LOVENOX) 9-29 0.47 mL ity of 150 mg/mL 00:00: under the [place] injection 00 skin every Medi guerline 12 Branch (twelve) hours. Yes 1{tbl} Take 1 Un[facility] rs vitamin [...] 1mg Take 1 [facility] rs (FOLATE) 1 9-29 tablet by ity of mg tablet 00:00: mouth [place] 00 daily. Medical Branch enoxaparin Yes 70.5mg inject [facility] vers (LOVENOX) 9-29 0.47 mL ity of 150 mg/mL 00:00: under the [place] injection 00 skin every Medi guerline 12 Branch (twelve) hours. Yes 1{tbl} Take 1 Un[facility] rs vitamin [...] 1mg Take 1 [facility] rs (FOLATE) 1 9-29 tablet by ity of mg tablet 00:00: mouth [place] 00 daily. Medical Branch enoxaparin Yes 70.5mg inject [facility] vers (LOVENOX) 9-29 0.47 mL ity of 150 mg/mL 00:00: under the [place] injection 00 skin every Medi guerline 12 Branch (twelve) hours. Yes 1{tbl} Take 1 Un[facility] rs vitamin [...] 1mg Take 1 [facility] rs (FOLATE) 1 9-29 tablet by ity of mg tablet 00:00: mouth [place] 00 daily. Medical Branch enoxaparin Yes 70.5mg inject [facility] vers (LOVENOX) 9-29 0.47 mL ity of 150 mg/mL 00:00: under the [place] injection 00 skin every Medi guerline 12 Branch (twelve) hours. Yes 1{tbl} Take 1 [facility] rs vitamin 9-29 tablet by ity of w/FA 00:00: mouth [place] (PRENATABS 00 daily. Medical RX) tablet Branch docusate Yes 240mg Take 1 [facility] s calcium 9-29 capsule by ity of (SURFAK) 00:00: mouth once [place] 240 mg 00 daily as Medical capsule needed for Branch Constipati on. ferrous 0 Yes 325mg Take 1 [facility] sulfate 325 [...] 1mg Take 1 [facility] rs (FOLATE) 1 9-29 tablet by ity of mg tablet 00:00: mouth [place] 00 daily. Medical Branch enoxaparin Yes 70.5mg inject [facility] vers (LOVENOX) 9-29 0.47 mL ity of 150 mg/mL 00:00: under the [place] injection 00 skin every Medi guerline 12 Branch (twelve) hours. Yes 1{tbl} Take 1 [facility] rs vitamin 9-29 tablet by ity of w/FA 00:00: mouth [place] (PRENATABS 00 daily. Medical RX) tablet Branch Yes 1{tbl} Take 1 Unive rs vitamin [...] hours for all acetaminop hen containing products. docusate Yes 240mg Take 1 [facility] s calcium 9-29 capsule by ity of (SURFAK) 00:00: mouth once [place] 240 mg 00 daily as Medical capsule needed for Branch Constipati on. foLIC acid Yes 1mg Take 1 [facility] rs (FOLATE) 1 9-29 tablet by ity of mg tablet 00:00: mouth [place] 00 daily. Medical Branch enoxaparin Yes 70.5mg inject [facility] vers (LOVENOX) 9-29 0.47 mL ity of 150 mg/mL 00:00: under the [place] injection 00 skin every Medi guerline 12 Branch (twelve) hours. ferrous Yes 325mg Take 1 [facility] sulfate [...] hours for all acetaminop hen containing products. Yes 1{tbl} Take 1 [facility] rs vitamin 9-29 tablet by ity of w/FA 00:00: mouth [place] (PRENATABS 00 daily. Medical RX) tablet Branch docusate Yes 240mg Take 1 [facility] s calcium 9-29 capsule by ity of (SURFAK) 00:00: mouth once [place] 240 mg 00 daily as Medical capsule needed for Branch Constipati on. foLIC acid Yes 1mg Take 1 [facility] rs (FOLATE) 1 9-29 tablet by ity of mg tablet 00:00: mouth [place] 00 daily. Medical Branch ferrous Yes 325mg Take 1 [facility] sulfate [...] 1mg Take 1 [facility] rs (FOLATE) 1 9-29 tablet by ity of mg tablet 00:00: mouth [place] 00 daily. Medical Branch enoxaparin Yes 70.5mg inject [facility] vers (LOVENOX) 9-29 0.47 mL ity of 150 mg/mL 00:00: under the [place] injection 00 skin every Medi guerline 12 Branch (twelve) hours. enoxaparin Yes 70.5mg inject [facility] vers (LOVENOX) 9-29 0.47 mL ity of 150 mg/mL 00:00: under the [place] injection 00 skin every Medi guerline 12 Branch (twelve) hours. Yes 1{tbl} Take 1 [facility] rs vitamin 9-29 tablet by ity of w/FA 00:00: mouth [place] (PRENATABS 00 daily. Medical RX) tablet Branch docusate 0 Yes 240mg Take 1 [facility] s calcium 9-29 capsule by ity of (SURFAK) 00:00: mouth once [place] 240 mg 00 daily as Medical capsule needed for Branch Constipati on. ferrous Yes 325mg Take 1 [facility] sulfate 325 9-29 tablet by ity of mg (65 mg 00:00: mouth 2 [place] iron) 00 (two) Medical tablet times Branch daily. acetaminoph 0 Yes 1{tbl} Take 1-2 [facility] en-codeine 9-29 [...] 1mg Take 1 [facility] rs (FOLATE) 1 9-29 tablet by ity of mg tablet 00:00: mouth [place] 00 daily. Medical Branch enoxaparin Yes 70.5mg inject [facility] vers (LOVENOX) 9-29 0.47 mL ity of 150 mg/mL 00:00: under the [place] injection 00 skin every Medi guerline 12 Branch (twelve) hours. 0 Yes 1{tbl} Take 1 [facility] rs vitamin 9-29 tablet by ity of w/FA 00:00: mouth [place] (PRENATABS 00 daily. Medical RX) tablet Branch docusate 0 Yes 240mg Take 1 [facility]iver s calcium [...] 1mg Take 1 [facility] rs (FOLATE) 1 9-29 tablet by ity of mg tablet 00:00: mouth [place] 00 daily. Medical Branch enoxaparin Yes 70.5mg inject [facility] vers (LOVENOX) 9-29 0.47 mL ity of 150 mg/mL 00:00: under the [place] injection 00 skin every Medi ugerline 12 Branch (twelve) hours. 0 Yes 1{tbl} Take 1 [facility] rs vitamin [...] 1mg Take 1 [facility] rs (FOLATE) 1 9-29 tablet by ity of mg tablet 00:00: mouth [place] 00 daily. Medical Branch enoxaparin Yes 70.5mg inject [facility] vers (LOVENOX) 9-29 0.47 mL ity of 150 mg/mL 00:00: under the [place] injection 00 skin every Medi guerline 12 Branch (twelve) hours. Yes 1{tbl} Take 1 [facility] rs vitamin [...] 1mg Take 1 [facility] rs (FOLATE) 1 9-29 tablet by ity of mg tablet 00:00: mouth [place] 00 daily. Medical Branch enoxaparin Yes 70.5mg inject [facility] vers (LOVENOX) 9-29 0.47 mL ity of 150 mg/mL 00:00: under the [place] injection 00 skin every Medi guerline 12 Branch (twelve) hours. Yes 1{tbl} Take 1 Un[facility] rs vitamin [...] 1mg Take 1 [facility] rs (FOLATE) 1 9-29 tablet by ity of mg tablet 00:00: mouth [place] 00 daily. Medical Branch enoxaparin Yes 70.5mg inject [facility] vers (LOVENOX) 9-29 0.47 mL ity of 150 mg/mL 00:00: under the [place] injection 00 skin every Medi guerline 12 Branch (twelve) hours. Yes 1{tbl} Take 1 [facility] rs vitamin [...] 1mg Take 1 [facility] rs (FOLATE) 1 9-29 tablet by ity of mg tablet 00:00: mouth [place] 00 daily. Medical Branch enoxaparin Yes 70.5mg inject [facility] vers (LOVENOX) 9-29 0.47 mL ity of 150 mg/mL 00:00: under the [place] injection 00 skin every Medi guerline 12 Branch (twelve) hours. Yes 1{tbl} Take 1 [facility] rs vitamin [...] 1mg Take 1 [facility] rs (FOLATE) 1 9-29 tablet by ity of mg tablet 00:00: mouth [place] 00 daily. Medical Branch enoxaparin Yes 70.5mg inject [facility] vers (LOVENOX) 9-29 0.47 mL ity of 150 mg/mL 00:00: under the [place] injection 00 skin every Medi guerline 12 Branch (twelve) hours. Yes 1{tbl} Take 1 [facility] rs vitamin 9-29 tablet by ity of w/FA 00:00: mouth [place] (PRENATABS 00 daily. Medical RX) tablet Branch docusate Yes 240mg Take 1 [facility] s calcium 9-29 capsule by ity of (SURFAK) 00:00: mouth once [place] 240 mg 00 daily as Medical capsule needed for Branch Constipati on. Yes 1{tbl} Take 1 [facility] rs vitamin [...] 00 (two) Medical tablet times Branch daily. ferrous Yes 325mg Take 1 [facility] sulfate [...] 1mg Take 1 [facility] rs (FOLATE) 1 9-29 tablet by ity of mg tablet 00:00: mouth [place] 00 daily. Medical Branch enoxaparin Yes 70.5mg inject [facility] vers (LOVENOX) 9-29 0.47 mL ity of 150 mg/mL 00:00: under the [place] injection 00 skin every Medi guerline 12 Branch (twelve) hours. acetaminoph Yes 1{tbl} Take 1-2 [facility] en-codeine [...] 1mg Take 1 [facility] rs (FOLATE) 1 9-29 tablet by ity of mg tablet 00:00: mouth [place] 00 daily. Medical Branch Yes 1{tbl} Take 1 [facility] rs vitamin 9-29 tablet by ity of w/FA 00:00: mouth [place] (PRENATABS 00 daily. Medical RX) tablet Branch docusate Yes 240mg Take 1 [facility] calcium 9-29 capsule by ity of (SURFAK) 00:00: mouth once [place] [facility] 240 mg 00 daily as Medical capsule needed for Branch Constipati on. ferrous 2016-0 Yes 325mg Take 1 [facility] sulfate 325 [...] 1mg Take 1 [facility] rs (FOLATE) 1 9-29 tablet by ity of mg tablet 00:00: mouth [place] 00 daily. Medical Branch enoxaparin Yes 70.5mg inject [facility] vers (LOVENOX) 9-29 0.47 mL ity of 150 mg/mL 00:00: under the [place] injection 00 skin every Medi guerline 12 Branch (twelve) hours. enoxaparin Yes 70.5mg inject [facility] vers (LOVENOX) 9-29 0.47 mL ity of 150 mg/mL 00:00: under the [place] injection 00 skin every Medi guerline 12 Branch (twelve) hours. 2015-0 Yes 1{tbl} Take 1 [facility] rs vitamin 9-29 tablet by ity of w/FA 00:00: mouth [place] (PRENATABS 00 daily. Medical RX) tablet Branch docusate 0 Yes 240mg Take 1 [facility] s calcium 9-29 capsule by ity of (SURFAK) 00:00: mouth once [place] 240 mg 00 daily as Medical capsule needed for Branch Constipati on. ferrous 2015-0 Yes 325mg Take 1 [facility] sulfate 325 [...] 1mg Take 1 [facility]ive rs (FOLATE) 1 9-29 tablet by ity of mg tablet 00:00: mouth [place] 00 daily. Medical Branch enoxaparin Yes 70.5mg inject [facility] vers (LOVENOX) 9-29 0.47 mL ity of 150 mg/mL 00:00: under the [place] injection 00 skin every Medi guerline 12 Branch (twelve) hours. Yes 1{tbl} Take 1 Unive rs vitamin [...] 1mg Take 1 [facility] rs (FOLATE) 1 9-29 tablet by ity of mg tablet 00:00: mouth [place] 00 daily. Medical Branch enoxaparin Yes 70.5mg inject [facility] vers (LOVENOX) 9-29 0.47 mL ity of 150 mg/mL 00:00: under the [place] injection 00 skin every Medi guerline 12 Branch (twelve) hours. Yes 1{tbl} Take 1 Unive rs vitamin [...] 1mg Take 1 [facility]ive rs (FOLATE) 1 9-29 tablet by ity of mg tablet 00:00: mouth [place] 00 daily. Medical Branch enoxaparin Yes 70.5mg inject [facility] vers (LOVENOX) 9-29 0.47 mL ity of 150 mg/mL 00:00: under the [place] injection 00 skin every Medi guerline 12 Branch (twelve) hours. Yes 1{tbl} Take 1 [facility] rs vitamin 9-29 tablet by ity of w/FA 00:00: mouth [place] (PRENATABS 00 daily. Medical RX) tablet Branch Yes 1{tbl} Take 1 [facility] rs vitamin 9-29 tablet by ity of w/FA 00:00: mouth [place] (PRENATABS 00 daily. Medical RX) tablet Branch docusate Yes 240mg Take 1 Univer s calcium 9-29 capsule by ity of (SURFAK) 00:00: mouth once [place] 240 mg 00 daily as Medical capsule needed for Branch Constipati on. docusate Yes 240mg Take 1 Univer s [...] 1mg Take 1 [facility]ive rs (FOLATE) 1 9-29 tablet by ity of mg tablet 00:00: mouth [place] 00 daily. Medical Branch enoxaparin Yes 70.5mg inject [facility] vers (LOVENOX) 9-29 0.47 mL ity of 150 mg/mL 00:00: under the [place] injection 00 skin every Medi guerline 12 Branch (twelve) hours. ferrous Yes 325mg Take 1 [facility] sulfate [...] hours for all acetaminop hen containing products. Yes 1{tbl} Take 1 Unive rs vitamin [...] 1mg Take 1 [facility] rs (FOLATE) 1 9-29 tablet by ity of mg tablet 00:00: mouth [place] 00 daily. Medical Branch enoxaparin Yes 70.5mg inject [facility] vers (LOVENOX) 9-29 0.47 mL ity of 150 mg/mL 00:00: under the [place] injection 00 skin every Medi guerline 12 Branch (twelve) hours. foLIC acid Yes 1mg Take 1 [facility] rs (FOLATE) 1 9-29 tablet by ity of mg tablet 00:00: mouth [place] 00 daily. Medical Branch Yes 1{tbl} Take 1 Unive rs vitamin 9-29 tablet by ity of w/FA 00:00: mouth [place] (PRENATABS 00 daily. Medical RX) tablet Branch docusate 0 Yes 240mg Take 1 Un[facility] s calcium 9-29 capsule by ity of (SURFAK) 00:00: mouth once [place] 240 mg 00 daily as Medical capsule needed for Branch Constipati on. ferrous 2016-0 Yes 325mg Take 1 [facility] sulfate 325 9-29 tablet by ity of mg (65 mg 00:00: mouth 2 [place] iron) 00 (two) Medical tablet times Branch daily. acetaminoph 20160 Yes 1{tbl} Take 1-2 [facility] en-codeine 9-29 [...] 1mg Take 1 Unive rs (FOLATE) 1 9-29 tablet by ity of mg tablet 00:00: mouth [place] 00 daily. Medical Branch enoxaparin Yes 70.5mg inject [facility] vers (LOVENOX) 9-29 0.47 mL ity of 150 mg/mL 00:00: under the [place] injection 00 skin every Medi guerline 12 Branch (twelve) hours. enoxaparin Yes 70.5mg inject [facility] vers (LOVENOX) 9-29 0.47 mL ity of 150 mg/mL 00:00: under the [place] injection 00 skin every Medi guerline 12 Branch (twelve) hours. 2015-0 Yes 1{tbl} Take 1 [facility] rs vitamin 9-29 tablet by ity of w/FA 00:00: mouth [place] (PRENATABS 00 daily. Medical RX) tablet Branch docusate 0 Yes 240mg Take 1 Univer s calcium 9-29 capsule by ity of (SURFAK) 00:00: mouth once [place] 240 mg 00 daily as Medical capsule needed for Branch Constipati on. ferrous 2015-0 Yes 325mg Take 1 [facility] sulfate 325 [...] 1mg Take 1 [facility] rs (FOLATE) 1 9-29 tablet by ity of mg tablet 00:00: mouth [place] 00 daily. Medical Branch enoxaparin Yes 70.5mg inject [facility] vers (LOVENOX) 9-29 0.47 mL ity of 150 mg/mL 00:00: under the [place] injection 00 skin every Medi guerline 12 Branch (twelve) hours. Yes 1{tbl} Take 1 Unive rs vitamin [...] 1mg Take 1 [facility] rs (FOLATE) 1 9-29 tablet by ity of mg tablet 00:00: mouth [place] 00 daily. Medical Branch enoxaparin Yes 70.5mg inject [facility] vers (LOVENOX) 9-29 0.47 mL ity of 150 mg/mL 00:00: under the [place] injection 00 skin every Medi guerline 12 Branch (twelve) hours. Yes 1{tbl} Take 1 Unive rs vitamin [...] 1mg Take 1 [facility] rs (FOLATE) 1 9-29 tablet by ity of mg tablet 00:00: mouth [place] 00 daily. Medical Branch enoxaparin Yes 70.5mg inject [facility] vers (LOVENOX) 9-29 0.47 mL ity of 150 mg/mL 00:00: under the [place] injection 00 skin every Medi guerline 12 Branch (twelve) hours. Yes 1{tbl} Take 1 Unive rs vitamin [...] 1mg Take 1 [facility] rs (FOLATE) 1 9-29 tablet by ity of mg tablet 00:00: mouth [place] 00 daily. Medical Branch enoxaparin Yes 70.5mg inject [facility] vers (LOVENOX) 9-29 0.47 mL ity of 150 mg/mL 00:00: under the [place] injection 00 skin every Medi guerline 12 Branch (twelve) hours. Yes 1{tbl} Take 1 [facility] rs vitamin 9-29 tablet by ity of w/FA 00:00: mouth [place] (PRENATABS 00 daily. Medical RX) tablet Branch docusate Yes 240mg Take 1 [facility] s calcium 9-29 capsule by ity of (SURFAK) 00:00: mouth once [place] 240 mg 00 daily as Medical capsule needed for Branch Constipati on. ferrous 0 Yes 325mg Take 1 [facility] sulfate 325 [...] 1mg Take 1 [facility] rs (FOLATE) 1 9-29 tablet by ity of mg tablet 00:00: mouth [place] 00 daily. Medical Branch enoxaparin Yes 70.5mg inject [facility] vers (LOVENOX) 9-29 0.47 mL ity of 150 mg/mL 00:00: under the [place] injection 00 skin every Medi guerline 12 Branch (twelve) hours. Yes 1{tbl} Take 1 Unive rs vitamin [...] 1mg Take 1 [facility] rs (FOLATE) 1 9-29 tablet by ity of mg tablet 00:00: mouth [place] 00 daily. Medical Branch enoxaparin Yes 70.5mg inject [facility] vers (LOVENOX) 9-29 0.47 mL ity of 150 mg/mL 00:00: under the [place] injection 00 skin every Medi guerline 12 Branch (twelve) hours. Yes 1{tbl} Take 1 Unive rs vitamin [...] 1mg Take 1 [facility] rs (FOLATE) 1 9-29 tablet by ity of mg tablet 00:00: mouth [place] 00 daily. Medical Branch enoxaparin Yes 70.5mg inject [facility] vers (LOVENOX) 9-29 0.47 mL ity of 150 mg/mL 00:00: under the [place] injection 00 skin every Medi guerline 12 Branch (twelve) hours. Yes 1{tbl} Take 1 [facility] rs vitamin 9-29 tablet by ity of w/FA 00:00: mouth [place] (PRENATABS 00 daily. Medical RX) tablet Branch docusate Yes 240mg Take 1 [facility] s calcium 9-29 capsule by ity of (SURFAK) 00:00: mouth once [place] 240 mg 00 daily as Medical capsule needed for Branch Constipati on. ferrous 2016-0 Yes 325mg Take 1 [facility] sulfate 325 [...] 1mg Take 1 [facility] rs (FOLATE) 1 9-29 tablet by ity of mg tablet 00:00: mouth [place] 00 daily. Medical Branch enoxaparin Yes 70.5mg inject [facility] vers (LOVENOX) 9-29 0.47 mL ity of 150 mg/mL 00:00: under the [place] injection 00 skin every Medi guerline 12 Branch (twelve) hours. Yes 1{tbl} Take 1 Unive rs vitamin [...] 1mg Take 1 [facility] rs (FOLATE) 1 9-29 tablet by ity of mg tablet 00:00: mouth [place] 00 daily. Medical Branch enoxaparin Yes 70.5mg inject [facility] vers (LOVENOX) 9-29 0.47 mL ity of 150 mg/mL 00:00: under the [place] injection 00 skin every Medi guerline 12 Branch (twelve) hours. 0 Yes 1{tbl} Take 1 [facility] rs vitamin 9-29 tablet by ity of w/FA 00:00: mouth [place] (PRENATABS 00 daily. Medical RX) tablet Branch docusate 0 Yes 240mg Take 1 Univer s calcium [...] 1mg Take 1 [facility] rs (FOLATE) 1 9-29 tablet by ity of mg tablet 00:00: mouth [place] 00 daily. Medical Branch enoxaparin Yes 70.5mg inject [facility] vers (LOVENOX) 9-29 0.47 mL ity of 150 mg/mL 00:00: under the [place] injection 00 skin every Medi guerline 12 Branch (twelve) hours. 0 Yes 1{tbl} Take 1 Un[facility] rs vitamin [...] 1mg Take 1 [facility] rs (FOLATE) 1 9-29 tablet by ity of mg tablet 00:00: mouth [place] 00 daily. Medical Branch enoxaparin Yes 70.5mg inject [facility] vers (LOVENOX) 9-29 0.47 mL ity of 150 mg/mL 00:00: under the [place] injection 00 skin every Medi guerline 12 Branch (twelve) hours. Yes 1{tbl} Take 1 Unive rs vitamin [...] 1mg Take 1 [facility] rs (FOLATE) 1 9-29 tablet by ity of mg tablet 00:00: mouth [place] 00 daily. Medical Branch enoxaparin Yes 70.5mg inject [facility] vers (LOVENOX) 9-29 0.47 mL ity of 150 mg/mL 00:00: under the [place] injection 00 skin every Medi guerline 12 Branch (twelve) hours. Yes 1{tbl} Take 1 Un[facility] rs vitamin [...] 1mg Take 1 Un[facility] rs (FOLATE) 1 9-29 tablet by ity of mg tablet 00:00: mouth [place] 00 daily. Medical Branch enoxaparin Yes 70.5mg inject [facility] vers (LOVENOX) 9-29 0.47 mL ity of 150 mg/mL 00:00: under the [place] injection 00 skin every Medi guerline 12 Branch (twelve) hours. Yes 1{tbl} Take 1 Un[facility] rs vitamin [...] 1mg Take 1 [facility] rs (FOLATE) 1 9-29 tablet by ity of mg tablet 00:00: mouth [place] 00 daily. Medical Branch enoxaparin Yes 70.5mg inject [facility] vers (LOVENOX) 9-29 0.47 mL ity of 150 mg/mL 00:00: under the [place] injection 00 skin every Medi guerline 12 Branch (twelve) hours. Yes 1{tbl} Take 1 Un[facility] rs vitamin [...] 1mg Take 1 [facility] rs (FOLATE) 1 9-29 tablet by ity of mg tablet 00:00: mouth [place] 00 daily. Medical Branch enoxaparin Yes 70.5mg inject [facility] vers (LOVENOX) 9-29 0.47 mL ity of 150 mg/mL 00:00: under the [place] injection 00 skin every Medi guerline 12 Branch (twelve) hours. Yes 1{tbl} Take 1 Un[facility] rs vitamin [...] 1mg Take 1 [facility] rs (FOLATE) 1 9-29 tablet by ity of mg tablet 00:00: mouth [place] 00 daily. Medical Branch enoxaparin Yes 70.5mg inject [facility] vers (LOVENOX) 9-29 0.47 mL ity of 150 mg/mL 00:00: under the [place] injection 00 skin every Medi guerline 12 Branch (twelve) hours. Yes 1{tbl} Take 1 Un[facility] rs vitamin [...] 1mg Take 1 [facility] rs (FOLATE) 1 9-29 tablet by ity of mg tablet 00:00: mouth [place] 00 daily. Medical Branch enoxaparin Yes 70.5mg inject [facility] vers (LOVENOX) 9-29 0.47 mL ity of 150 mg/mL 00:00: under the [place] injection 00 skin every Medi guerline 12 Branch (twelve) hours. 2015-0 Yes 1{tbl} Take 1 Un[facility] rs vitamin [...] 1mg Take 1 [facility] rs (FOLATE) 1 9-29 tablet by ity of mg tablet 00:00: mouth [place] 00 daily. Medical Branch enoxaparin Yes 70.5mg inject [facility] vers (LOVENOX) 9-29 0.47 mL ity of 150 mg/mL 00:00: under the [place] injection 00 skin every Medi guerline 12 Branch (twelve) hours. 2015-0 Yes 1{tbl} Take 1 [facility] rs vitamin 9-29 tablet by ity of w/FA 00:00: mouth [place] (PRENATABS 00 daily. Medical RX) tablet Branch docusate Yes 240mg Take 1 Un[facility] s calcium 9-29 capsule by ity of (SURFAK) 00:00: mouth once [place] 240 mg 00 daily as Medical capsule needed for Branch Constipati on. ferrous 0 Yes 325mg Take 1 [facility] sulfate 325 [...] 1mg Take 1 [facility] rs (FOLATE) 1 9-29 tablet by ity of mg tablet 00:00: mouth [place] 00 daily. Medical Branch enoxaparin Yes 70.5mg inject [facility] vers (LOVENOX) 9-29 0.47 mL ity of 150 mg/mL 00:00: under the [place] injection 00 skin every Medi guerline 12 Branch (twelve) hours. Yes 1{tbl} Take 1 Un[facility] rs vitamin [...] enoxaparin Yes 70.5mg inject [facility] vers (LOVENOX) - 0.47 mL ity of 150 mg/mL 00:00: under the [place] injection 00 skin every Medi guerline 12 Branch (twelve) hours. Yes 1{tbl} Take 1 [facility] rs vitamin 9-29 tablet by ity of w/FA 00:00: mouth [place] (PRENATABS 00 daily. Medical RX) tablet Branch Yes 1{tbl} Take 1 [facility] rs vitamin 9-29 tablet by ity of w/FA 00:00: mouth [place] (PRENATABS 00 daily. Medical RX) tablet Branch docusate Yes 240mg Take 1 Un[facility] s calcium 9-29 capsule by ity of (SURFAK) 00:00: mouth once [place] 240 mg 00 daily as Medical capsule needed for Branch Constipati on. ibuprofen 2020- No 600mg Take 1 [facility] ers (MOTRIN) - 07-30 tablet by ity o f 600 mg 00:00: 00:00 mouth [place] tablet 00 :00 every 6 Medical (six) Branch hours as needed for Pain (scale 4-6). Take with food or milk. Immunizations Ordered Filled Date Status Comments Source Immunization Name Immunization Name [facility] 2016-02-23 Completed [facility] 00[facility]00 [facility] 2016-02-23 Completed [facility] 00:00:00 [facility] 2016-02-23 Completed [facility] 00[facility]00:00 [facility] TDAP 2016-02-23 Completed [facility] 00[facility]00:00 [facility] TDAP 2016-02-23 Completed [facility] 00[facility]00:00 [facility] TDAP 2016-02-23 Completed [facility] 00:00:00 [facility] 2016-02-23 Completed [facility] 00:00:00 [facility] 2016[facility]02[facility]23 [facility] 00:[facility] 2016-02-23 Completed [facility] 00:00:00 [facility] 2016-02-23 Completed [facility] 00[facility]00:00 [facility] 2016-02-23 Completed [facility] 00:00:00 [facility] 2016-02-23 Completed [facility] 00:00:00 [facility] 2016-02-23 Completed [facility] 00:00:00 [facility] 2016-02-23 Completed [facility] 00:00:00 [facility] TDAP 2016-02-23 Completed [facility] 00:00:00 [facility] 2016-02-23 Completed [facility] 00:00:00 [place] [facility] TDAP 2016-02-23 Completed [facility] 00:00:00 [place] [facility] TDAP 2016-02-23 Completed [facility] 00:00:00 [place] [facility] TDAP 2016-02-23 Completed [facility] 00:00:00 [place] [facility] TDAP 2016-02-23 Completed [facility] 00[facility]00:00 [place] [facility] TDAP 2016-02-23 Completed [facility] 00:00:00 [place] [facility] TDAP 2016-02-23 Completed [facility] 00:00:00 [place] [facility] TDAP 2016-02-23 Completed [facility] of 00:00:00 [facility] TDAP 2016-02-23 Completed University of 00:00:00 [facility] TDAP 2016-02-23 Completed University of 00:00:00 [facility] TDAP 2016-02-23 Completed University of 00:00:00 [facility] TDAP 2016-02-23 Completed [facility] of 00:00:00 [facility] TDAP 2016-02-23 Completed [facility] 00:00:00 [facility] TDAP 2016-02-23 Completed [facility] of 00:00:00 [facility] TDAP 2016-02-23 Completed [facility] 00:00:00 [facility] TDAP 2016-02-23 Completed [facility] of 00:00:00 [facility] TDAP 2016-02-23 Completed [facility] of 00:00:00 [facility] TDAP 2016-02-23 Completed University of 00:00:00 [facility] TDAP 2016-02-23 Completed University of 00:00:00 [facility] TDAP 2016-02-23 Completed [facility] of 00:00:00 [facility] TDAP 2016-02-23 Completed [facility] 00:00:00 [facility] TDAP 2016-02-23 Completed [facility] 00:00:00 [facility] TDAP 2016-02-23 Completed [facility] 00:00:00 [facility] TDAP 2016-02-23 Completed [facility] 00:00:00 [facility] TDAP 2016-02-23 Completed [facility] 00:00:00 [facility] TDAP 2016-02-23 Completed [facility] 00:00:00 [facility] TDAP 2016-02-23 Completed [facility] 00:00:00 [facility] TDAP Unknown Completed [facility] TDAP Unknown Completed [facility] Vital Signs Vital Name Observation Time Observation Value Comments Source Systolic blood 2023-04-03 15:24:00 96 mm[Hg] Univer sity of pressure [facility] Diastolic blood 2023-04-03 15:24:00 62 mm[Hg] Unive rsity of pressure [facility] Heart rate 2023-04-03 15:24:00 89 /min Universi ty of [facility] Body height 2023-04-03 15:24:00 149.9 cm Universi ty of [facility] Body weight 2023-04-03 15:24:00 62.324 kg Universi ty [facility] BMI 2023-04-03 15:24:00 27.75 [facility]m2 [facility] Oxygen saturation in 2023-04-03 15:24:00 100 /min [facility] Arterial blood by [facility] Pulse oximetry Branch Systolic blood 2022-12-27 15:46:00 118 mm[Hg] Univer sity of pressure [facility] Diastolic blood 2022-12-27 15:46:00 79 mm[Hg] Unive rsity of pressure [facility] Heart rate 2022-12-27 15:46:00 65 /min Universi ty of [facility] Respiratory rate 2022-12-27 15:46:00 12 /min Univ ersity of [facility] Body height 2022-12-27 15:46:00 149.9 cm Universi ty [facility] Body weight 2022-12-27 15:46:00 60.782 kg Universi ty of [facility] BMI 2022-12-27 15:46:00 27.06 kg/m2 Universi ty of [facility] Oxygen saturation in 2022-12-27 15:46:00 97 /min University of Arterial blood by [facility] Systolic blood 2022-11-08 14:49:00 102 mm[Hg] Univer sity of pressure [facility] Diastolic blood 2022-11-08 14:49:00 68 mm[Hg] Unive rsity of pressure [facility] Heart rate 2022-11-08 14:49:00 96 /min Universi ty of [facility] Body height 2022-11-08 14:49:00 149.9 cm Universi ty [facility] Body weight 2022-11-08 14:49:00 60.737 kg Universi ty [facility] BMI 2022-11-08 14:49:00 27.04 kg/m2 Universi ty [facility] Oxygen saturation in 2022-11-08 14:49:00 100 /min University of Arterial blood by [facility] Pulse oximetry Branch Systolic blood 2022-10-18 19:02:00 126 mm[Hg] Univer sity of pressure [facility] Diastolic blood 2022-10-18 19:02:00 89 mm[Hg] Unive rsity of pressure [facility] Heart rate 2022-10-18 19:02:00 101 /min Universi ty of [facility] Body temperature 2022-10-18 19:02:00 36.44 Rebecca Univ ersity of [facility] Respiratory rate 2022-10-18 19:02:00 18 /min Univ ersity of [facility] Body height 2022-10-18 19:02:00 149.9 cm Universi ty of [facility] Body weight 2022-10-18 19:02:00 59.875 kg Universi ty [facility] BMI 2022-10-18 19:02:00 26.66 kg/m2 Universi ty [facility] Oxygen saturation in 2022-10-18 19:02:00 96 /min University of Arterial blood by [facility] Systolic blood 2022-10-04 19:08:00 116 mm[Hg] Univer sity of pressure [facility] Diastolic blood 2022-10-04 19:08:00 76 mm[Hg] Unive rsity of pressure [facility] Heart rate 2022-10-04 19:08:00 100 /min Universi ty of [facility] Respiratory rate 2022-10-04 19:08:00 16 /min Univ ersity of [facility] Body height 2022-10-04 19:08:00 149.9 cm Universi ty [facility] Body weight 2022-10-04 19:08:00 58.968 kg Universi ty [facility] BMI 2022-10-04 19:08:00 26.26 kg/m2 Universi ty [facility] Oxygen saturation in 2022-10-04 19:08:00 98 /min University of Arterial blood by [facility] Systolic blood 2022-08-30 15:28:00 123 mm[Hg] Univer sity of pressure [facility] Diastolic blood 2022-08-30 15:28:00 78 mm[Hg] Unive rsity of pressure [facility] Heart rate 2022-08-30 15:28:00 94 /min Universi ty of [facility] Respiratory rate 2022-08-30 15:28:00 12 /min Univ ersity of [facility] Body height 2022-08-30 15:28:00 149.9 cm Universi ty of [facility] Body weight 2022-08-30 15:28:00 61.236 kg Universi ty of [facility] BMI 2022-08-30 15:28:00 27.27 kg/m2 Universi ty of [facility] Oxygen saturation in 2022-08-30 15:28:00 100 /min University of Arterial blood by [place] [employer] guerline Pulse oximetry Branch Systolic blood 2022-08-05 16:32:00 135 mm[Hg] Univer sity of pressure [facility] Diastolic blood 2022-08-05 16:32:00 78 mm[Hg] Unive rsity of pressure [facility] Heart rate 2022-08-05 16:32:00 100 /min Universi ty of [facility] Respiratory rate 2022-08-05 16:32:00 12 /min Univ ersity of [facility] Body height 2022-08-05 16:32:00 149.9 cm Universi ty [facility] Body weight 2022-08-05 16:32:00 61.236 kg Universi ty [facility] BMI 2022-08-05 16:32:00 27.27 kg/m2 Universi ty [facility] Oxygen saturation in 2022-08-05 16:32:00 100 /min University of Arterial blood by [facility] Pulse oximetry Branch Systolic blood 2022-08-04 23:59:00 152 mm[Hg] Univer sity of pressure [facility] Diastolic blood 2022-08-04 23:59:00 91 mm[Hg] Unive rsity of pressure [facility] Heart rate 2022-08-04 23:59:00 100 /min Universi ty of [facility] Body temperature 2022-08-04 23:59:00 37.11 Rebecca Univ ersity of [facility] Respiratory rate 2022-08-04 23:59:00 18 /min Univ ersity of [facility] Body height 2022-08-04 23:59:00 149.9 cm Universi ty of [facility] Body weight 2022-08-04 23:59:00 61.236 kg Universi ty [facility] BMI 2022-08-04 23:59:00 27.27 kg/m2 Universi ty [facility] Oxygen saturation in 2022-08-04 23:59:00 100 /min University of Arterial blood by [facility] Pulse oximetry Branch Systolic blood 2022-07-12 22:22:00 127 mm[Hg] Univer sity of pressure [facility] Diastolic blood 2022-07-12 22:22:00 78 mm[Hg] Unive rsity of pressure [facility] Heart rate 2022-07-12 22:22:00 91 /min Universi ty of [facility] Body temperature 2022-07-12 22:22:00 35.33 Rebecca Univ ersity of [facility] Respiratory rate 2022-07-12 22:22:00 18 /min Univ ersity of [facility] Body weight 2022-07-12 22:22:00 59.421 kg Universi ty of [facility] BMI 2022-07-12 22:22:00 26.46 kg/m2 Universi ty [facility] Oxygen saturation in 2022-07-12 22:22:00 98 /min University of Arterial blood by [facility] Pulse oximetry Branch Systolic blood 2022-07-05 21:31:00 106 mm[Hg] Univer sity of pressure [facility] Diastolic blood 2022-07-05 21:31:00 68 mm[Hg] Unive rsity of pressure [facility] Heart rate 2022-07-05 21:31:00 100 /min Universi ty of [facility] Body height 2022-07-05 21:31:00 149.9 cm Universi ty [facility] Body weight 2022-07-05 21:31:00 57.607 kg Universi ty [facility] BMI 2022-07-05 21:31:00 25.65 kg/m2 Universi ty [facility] Oxygen saturation in 2022-07-05 21:31:00 100 /min University of Arterial blood by [facility] guerline Pulse oximetry Branch Systolic blood 2022-06-18 19:25:00 122 mm[Hg] Univer sity of pressure [facility] Diastolic blood 2022-06-18 19:25:00 72 mm[Hg] Unive rsity of pressure [facility] Heart rate 2022-06-18 19:25:00 98 /min Universi ty of [facility] Body height 2022-06-18 19:25:00 149.9 cm Universi ty of [facility] Body weight 2022-06-18 19:25:00 57.607 kg Universi ty [facility] BMI 2022-06-18 19:25:00 25.65 kg/m2 Universi ty [facility] Oxygen saturation in 2022-06-18 19:25:00 100 /min University of Arterial blood by [facility] Pulse oximetry Branch Systolic blood 2022-05-21 16:34:00 110 mm[Hg] Univer sity of pressure [facility] Diastolic blood 2022-05-21 16:34:00 78 mm[Hg] Unive rsity of pressure [facility] Heart rate 2022-05-21 16:34:00 108 /min Universi ty of [facility] Body height 2022-05-21 16:34:00 149.9 cm Universi ty [facility] Body weight 2022-05-21 16:34:00 57.607 kg Universi ty [facility] BMI 2022-05-21 16:34:00 25.65 kg/m2 Universi ty [facility] Systolic blood 2022-04-30 18:07:00 112 mm[Hg] Univer sity of pressure [facility] Diastolic blood 2022-04-30 18:07:00 71 mm[Hg] Unive rsity of pressure [facility] Heart rate 2022-04-30 18:07:00 88 /min Universi ty [facility] [place] Body temperature 2022-04-30 18:07:00 36.78 Rebecca Univ ersity of [facility] Respiratory rate 2022-04-30 18:07:00 16 /min Univ ersity of [facility] [place] Body height 2022-04-30 18:07:00 149.9 cm Universi ty of [facility] [place] Body weight 2022-04-30 18:07:00 59.421 kg Universi ty of [facility] [place] BMI 2022-04-30 18:07:00 26.46 kg/m2 Universi ty of [facility] Oxygen saturation in 2022-04-30 18:07:00 100 /min University of Arterial blood by [facility] Pulse oximetry Branch Systolic blood 2020-02-25 04:30:00 126 mm[Hg] Univer sity of pressure [facility] Diastolic blood 2020-02-25 04:30:00 73 mm[Hg] Unive rsity of pressure [facility] Heart rate 2020-02-25 04:30:00 88 /min Universi ty of [facility] [place] Respiratory rate 2020-02-25 04:30:00 20 /min Univ ersity of [facility] Oxygen saturation in 2020-02-25 04:30:00 98 /min University of Arterial blood by [facility] Pulse oximetry Branch Body temperature 2020-02-25 03:00:00 36.67 Rebecca Univ ersity of [facility] [place] Body height 2020-02-25 01:15:00 149.9 cm Universi ty of [facility] [place] Body weight 2020-02-25 01:15:00 63.504 kg Universi ty [facility] BMI 2020-02-25 01:15:00 28.28 kg/m2 [facility]i ty [facility] [place] Procedures Procedure Date / Time Performing Clinician Source Performed DISCLOSURE AND CONSENT, 2022-12-27 05:01:00 Doctor Unassigned, N o [facility] MEDICAL AND SURGICAL Name Medical [facility] PROCEDURES POCT TEST 2022-10-04 19:15:00 Anabelle, Audra Eileen [facility] DISCLOSURE AND CONSENT, 2022-10-04 06:01:00 Doctor Unassigned, N o [facility] MEDICAL AND SURGICAL [facility] PROCEDURES POCT TEST 2022-08-05 00:24:00 Christiane Gleason [facility] NOTICE OF PRIVACY 2022-08-04 23:55:29 Doctor Unassigned, No Univ [facility] PRACTICES [facility] CONSENT/REFUSAL FOR 2022-08-04 23:53:22 Doctor Unassigned, No [facility] DIAGNOSIS AND TREATMENT [facility] DISCLOSURE AND CONSENT, 2022-07-05 06:01:00 Doctor Unassigned, N o [facility] MEDICAL AND SURGICAL [facility] Medical Bra [facility] PROCEDURES DISCLOSURE AND CONSENT, 2022-06-18 06:01:00 Doctor Unassigned, N o [facility] MEDICAL AND SURGICAL [facility] Medical [facility] PROCEDURES MR CERVICAL SPINE WO 2022-05-17 13:41:00 Chacorta Padgett [facility] CONTRAST Medical Branch MR BRAIN WO CONTRAST 2022-05-17 13:32:35 Dionte Chen [facility] ASSIGNMENT OF BENEFITS 2022-04-30 17:46:00 Doctor Unassigned, No [facility] RADIOLOGY DOCUMENTATION 2022-04-21 05:01:00 Doctor Unassigned, N o [facility] CT ABDOMEN PELVIS W 2020-02-25 04:09:35 Shefali Novoa [facility] CONTRAST Medical Branch BASIC METABOLIC PANEL 2020-02-25 02:54:00 Shefali Novoa [facility] (NA, K, CL, CO2, Medical Branch GLUCOSE, BUN, CREATININE, CA) CBC WITH DIFF 2020-02-25 02:54:00 Shefali Novoa [place] salena [facility] POCT TEST 2020-02-25 01:31:00 Vira Wilhelm [facility] URINALYSIS 2020-02-25 01:30:00 Vira Wilhelm [facility] ASSIGNMENT OF BENEFITS 2020-02-25 01:06:05 Doctor Unassigned, No [facility] NOTICE OF PRIVACY 2020-02-25 01:05:52 Doctor Unassigned, No [facility] PRACTICES Name [facility] Branch CONSENT/REFUSAL FOR 2020-02-25 01:05:38 Doctor Unassigned, No [facility] DIAGNOSIS AND TREATMENT Name Medical Branch Encounters Start End Encounter Admission Attending Care Care Encounter Source Date/Time Date/Time Type Type Clinicians Facility Department ID 2021-05-[address] [facility] [id number] Univers 09:56:53 ity [facility] 2023-04-03 2023-04-03 Outpatient AUDRA MORRIS [facility] [id number] Univers 10:30:00 11:32:48 AUDRA AHN [facility] 2023-04-03 2023-04-03 Office Anabelle INDANNA 1.2.840.114 [id number] Univers 10:30:00 11:32:48 Visit Audra BENAVIDES 350.1.13.10 ity Rosette [place] 4.2.7.2.686 [facility] [id number] [facility] [address] [place] [facility] 2023-03-05 2023-03-05 Outpatient Maricarmen GROSSMAN [facility] [id number] Univers 13:00:00 13:00:00 KIM levine [facility] 2023-01-24 2023-01-24 Outpatient BRIGID RIZZO [facility] [id number] Univers 13:00:00 13:00:00 BRIGID BATES it y [facility] 2022-12-27 2022-12-27 Office Anabelle INDANNA 1.2.840.114 [id number] Univers 10:30:00 11:51:00 Visit Audra BENAIVDES 350.1.13.10 ity Rosette [place]ACK[place] 4.2.7.2.686 [facility] [id number] [facility] [address] [place] [facility] 2022-12-27 2022-12-27 Outpatient AUDRA MORRIS [facility] [id number] Univers 10:30:00 11:51:00 AUDRA AHN [facility] 2022-12-27 2022-12-27 Orders Doctor HORVATH 1.2.840.114 [id number] Univers 00:00:00 00:00:00 Only Unassigned, HELDER 350.1.13.10 ity of [facility] 4.2.7.2.[id number] [facility] 00[address] Branch 2022-11-08 2022-11-08 Outpatient R AUDRA AHN [facility] [id number] Univers 09:30:00 10:33:39 AUDRA AHN [facility] 2022-11-08 2022-11-08 Office Anabelle [facility] 1.2.840.114 [id number] Univers 09:30:00 10:33:39 Visit Audra BENAVIDES 350.1.13.10 ity of [place]2.[place] [id number] [facility] [address] [place] [facility] 2022-10-18 2022-10-18 Outpatient R BRIGID BATES [facility] [id number] Univers 14:00:00 14:21:51 BRIGID BATES it y of [facility] 2022-10-18 2022-10-18 Office Brigid Bates [facility] 1.2.840.114 [id number] Univers 14:00:00 14:21:51 Visit PRIMARY 350.1.13.10 it y of [facility] 4.2.7.2.686 [place] [id number] [facility] [address] [place] 2022-10-14 2022-10-14 Outpatient R AUDRA AHN [facility] [id number] Univers 11:00:00 11:00:00 AUDRA AHN [facility] 2022-10-04 2022-10-04 Office Anabelle INDANNA 1.2.840.114 [id number] Univers 13:30:00 14:00:00 Visit Audra BENAVIDES 350.1.13.10 ity of [place] 4.2.7.2.686 [facility] [id number] [facility] [address] [place] [facility] 2022-10-04 2022-10-04 Outpatient R AUDRA AHN [facility] [id number] Univers 13:30:00 13:30:00 AUDRA AHN [facility] 2022-10-04 2022-10-04 Orders Doctor ALEXANDRU 1.2.840.114 [id number] Univers 00:00:00 00:00:00 Only Unassigned, HELDER 350.1.13.10 ity of [facility] 4.2.7.2.686 Alen as [id number] [place] [address] Branch 2022-10-01 2022-10-01 Telephone MICHELLE Ahn [id number] Univers 00:00:00 00:00:00 Audra MULTISPEC 350.1.13.10 ity of [place]2.[place] [id number] [address] [facility] 2022-09-04 2022-09-04 Telephone Anabelle INDANNA [id number] Univers 00:00:00 00:00:00 Audra MULTISPEC 350.1.13.10 ity of [place]2.[place] [id number] [address] [facility] 2022-08-30 2022-08-30 Outpatient R AUDRA AHN [facility] [id number] Univers 09:30:00 10:09:53 AUDRA AHN of [facility] 2022-08-30 2022-08-30 Office Anabelle INDANNA 1.2.840.114 [id number] Univers 09:30:00 10:09:53 Visit Audra MULTISPEC 350.1.13.10 ity of [place]2.[place]2.[place] [id number] [address] [facility] 2022-08-30 2022-08-30 Letter Anabelle INDANNA 1.2.840.114 [id number] Univers 00:00:00 00:00:00 (Out) Audra MULTISPEC 350.1.13.10 ity of [place] 4[place]2.7[place]2.[place] [id number] [address] [facility] 2022-08-09 2022-08-09 Telephone Anabelle INDANNA [id number] Univers 00:00:00 00:00:00 Audra MULTISPEC 350.1.13.10 ity of [place] 4[place]2.[place] [address] [id number] [facility] AND [address] DIABETES [facility]IC 2022-08-05 2022-08-05 Outpatient R AUDRA AHN [facility] [id number] Univers 10:30:00 12:11:04 AUDRA AHN itdaphne [facility] 2022-08-05 2022-08-05 [facility] 1.2.840.114 [id number] Univers 10:30:00 12:11:04 Visit Audrakadie KIMPEC 350.1.13.10 ity of [place] MENDOZAJASIEL 4.2.7.2.686 [facility] [id number] [address] DIABETES [facility] 2022-08-05 2022-08-05 Letter [facility] 1.2.840.114 [id number] Univers 00:00:00 00:00:00 (Out) Audra KIMPEC 350.1.13.10 ity of [place] IAY 4.2.7.2.686 [facility] [id number] [address] [facility] 2022-08-04 2022-08-04 Emergency X [facility] [id number] Univers 17:59:00 18:39:00 CHRISTIANE levine [facility] 2022-08-04 2022-08-[address] [facility] [id number] Univers 17:59:00 18:39:00 Christiane HAMILTON 350.1.13.10 ity [place]2.[place] [id number] [facility] 0[address] Branch 2022-07-12 2022-07-12 Office Brigid Bates [facility] 1.2.840.114 [id number] Univers 16:00:00 17:00:00 Visit PRIMARY 350.1.13.10 it y [place]2.[place] [id number] [place] [address] Branch 2022-07-12 2022-07-12 Outpatient R BRIGID BATES [facility] [id number] Univers 16:00:00 16:00:00 PAULOBRIGID dom daphne [facility] 2022-07-08 2022-07-08 Telephone Anabelle INDANNA 1.2.153.195 [id number] Univers 00:00:00 00:00:00 Audra MULTISPEC 350.1.13.10 ity of [place] [id number] [address] [facility] 2022-07-05 2022-07-05 Outpatient AUDRA MORRIS [facility] [id number] Univers 15:30:00 16:23:03 AUDRA AHN [facility] 2022-07-05 2022-07-05 Office Anabelle INDANNA 1.2.840.114 [id number] Univers 15:30:00 16:23:03 Visit Audra KIMPEC 350.1.13.10 ity of [place]2.[place] [id number] [address] [facility] 2022-07-05 2022-07-05 Patient Doctor ALEXANDRU 1.2.840.114 [id number] Univers 00:00:00 00:00:00 Secure Msg Unassigned, HELDER 350.1.13.10 ity of [facility] 4.2.7.2.[id number] [facility] [address] [place] 2022-07-05 2022-07-05 Orders Doctor ALEXANDRU 1.2.840.114 [id number] Univers 00:00:00 00:00:00 Only Unassigned, HELDER 350.1.13.10 ity of [facility] 4.2.7.2.[id number] [facility] [address] Branch 2022-06-18 2022-06-18 Outpatient AUDRA MORRIS [facility] [id number] Univers 13:30:00 14:46:20 AUDRA AHN [facility] 2022-06-18 2022-06-18 Office [facility] 1.2.840.114 [id number] Univers 13:30:00 14:46:20 Visit Audra JULIOPEC 350.1.13.10 ity of [place]2.[place] [id number] [address] [facility] 2022-06-18 2022-06-18 Orders Doctor ALEXANDRU 1.2.840.114 [id number] Univers 00:00:00 00:00:00 Only Unassigned, HELDER 350.1.13.10 ity of [facility] 4.2.7.2.686 Alen as [id number] [place] [address] Branch 2022-05-31 2022-05-31 Ancillary Krysta Glasgow [facility] 1.2.840 .114 [id number] Univers 10:30:00 11:51:01 Visit Dionne Velasquez 350.1.13.10 it[place] [id number] [place] [address] Branch OFFICE BUILDING 2022-05-31 2022-05-31 Outpatient R KOMAL [facility] [id number] Univers 10:30:00 10:30:00 DIONNE levine [facility] 2022-05-31 2022-05-31 Paulette Glasgow [facility] 1.2.840.114 [id number] Univers 00:00:00 00:00:00 (Out) Krysta WHITLEY 350.1.13.10 [place]y [place] [id number] [place] [address] Branch OFFICE BUILDING 2022-05-21 2022-05-21 Office Lorin [facility] 1.2.840.114 [id number] Univers 11:00:00 11:15:00 Visit Chacorta [facility] 350.1.13.10 it [place] [id number] [address] OFFICE BUILDING 2022-05-21 2022-05-21 Outpatient CHACORTA GASTON [facility] [id number] Univers 11:00:00 11:00:00 CHACORTA PADGETT [facility] 2022-05-21 2022-05-21 Letter [facility] 1.2.840.114 [id number] Univers 00:00:00 00:00:00 (Out) Chacorta HEALTH 350.1.13.10 it y [place] [id number] [address] OFFICE [facility] 2022-05-17 2022-05-17 [facility] 1.2.840.114 [id number] Univers 08:08:16 23:59:00 Encounter [place] VENTURAEVELYNE 350.1.13.10 [place] [id number] [address] 2022-05-17 2022-05-17 Outpatient R [facility] 1 [id number] Univers 09:00:00 09:00:[address] [facility] 2022-05-17 2022-05-[address] [facility] [id number] Univers 07:47:17 08:07:[address] [facility] 2022-05-17 2022-05-17 [facility] 1.2.840.114 [id number] Univers 07:47:17 08:07:00 Encounter Dionte VENTURAEVELYNE 350.1.13.10 [place] [id number] [address] 2022-05-16 2022-05-16 [facility] [id number] Univers 00:00:00 00:00:00 [place]orta HEALTH 350.1.13.10 [place] [id number] [address] OFFICE [facility] 2022-05-07 2022-05-07 Telephone [facility] [id number] Univers 00:00:00 00:00:00 [place] HEALTH 350.1.13.10 [place] [id number] [address] OFFICE [facility] 2022-04-30 2022-04-30 Office [place], [facility] 1.2.840.114 [id number] Univers 13:15:00 14:06:37 Visit [place] HEALTH 350.1.13.10 [place] [id number] [address] OFFICE BUILDING 2022-04-30 2022-04-30 Outpatient R CHACORTA PADGETT [facility] 1 [id number] Univers 13:15:00 14:06:37 CHACORTA PADGETT ity of [facility] 2022-04-30 2022-04-30 Orders Doctor ALEXANDRU 1.2.840.114 [id number] Univers 00:00:00 00:00:00 Only Unassigned, HELDER 350.1.13.10 ity of [facility] 4.2.7.2.686 [place] [id number] [address] 2022-04-26 2022-04-26 Patient Doctor [facility] 1.2.840.114 [id number] Univers 00:00:00 00:00:00 Secure Msg Unassigned, HEALTH 350.1.13.10 [place] [id number] [address] OFFICE BUILDING 2022-04-21 2022-04-21 Orders Doctor ALEXANDRU 1.2.840.114 [id number] Univers 00:00:00 00:00:00 Only Unassigned, HELDER 350.1.13.10 ity of [facility] 4.2.7.2.686 [place] as [id number] [address] 2020-02-24 2020-02-25 Emergency [facility] [id number] Univers 20:18:04 00:15:00 Shefali Hamilton 350.1.13.10 i ty of [place] [phone] [place] [id number] [place] 2018-12-04 2018-12-04 Emergency E [facility] 7500 [facility] 17:09:00 17:09:00 Results Test Description Test Time Test Comments Results Result Comments Source POCT TEST 2022-10-04 19:17:00 Test Item Value Reference Range Interpretation Comme nts POCT PREG (test code = 1605) Negative On board controls acceptable with C Line (test code = 3574) Yes POCT PREG LOT # (test code = 3575) POCT PREG TEST DATE (test code = 3576) Lab Interpretation (test code = 00507-0) Normal [facility] [id number] 19:17:00 Test Item Value Reference Range Interpretation Comments POCT PREG (test code = 1605) Negative On board controls acceptable with C Yes Line (test code = 3574) POCT PREG LOT # (test code = 3575) POCT PREG TEST DATE (test code = 3576) Lab Interpretation (test code = Normal 19964-6) [facility] [id number] 00:24:00 Test Item Value Reference Range Interpretation Comments POCT PREG (test code = 1605) negative On board controls acceptable with present C Line (test code = 3574) POCT PREG LOT # (test code = 3575) [id number] POCT PREG TEST DATE (test 10-26-2023 code = 3576) Lab Interpretation (test code = Normal 89229-5) [facility] ABDOMEN PELVIS W [id number] 04:54:57 Normal retrocecal appendix. Hypoattenuating appearance of the endometrial cavity may represent fluidand/or blood products. Correlate with patient menstrual cycle and symptoms. Preliminary Report Dictated by Resident: Mookie Gates MD., have reviewed this study and agree with theabovereport.EXAM: CT ABDOMEN PELVIS W CONTRAST HISTORY: Abd pain, appendicitis suspected COMPARISON: None. DOSE: 291 mGy*cm TECHNIQUE AND FINDINGS: Contiguous axial imaging from the level of the lungbases through the proximal thighs was performed after the uncomplicatedadministration intravenous contrast. Coronal and sagittal reconstructionswere obtained. ?Auto mA and/or iterative reconstruction were usedto reduceradiation dose. FINDINGS: LOWER THORAX: The lungs [...] patulous distalesophagus. PELVIS/BLADDER: Urinary bladder is normal forthe degree of distention.Hypoattenuating appearance of the endometrial cavity probably representsfluid and/or blood products. Bilateral ovaries appear unremarkablepatient's age. BONES AND SOFT TISSUES:No suspicious lytic or sclerotic bony lesions. Tinyfat-containing [...] were used to reduceradiation dose.FINDINGS:LOWER THORAX: The paulo ngs bases are clear. LIVER: Mild fatty infiltration at the falciform ligament. Otherwise, nofocal hepatic lesions identified. Normal contour.GALLBLADDER AND BILIARY TREE: No biliary ductal dilation. Nogallbladderwall thickening. No radiopaque cholelithiasis. Gallbladder appears appearspartially contra cted.PANCREAS: No ductal dilation or masses.SPLEEN: No splenomegaly. Subcentimeter nodule within theleft upperquadrant likely represents a splenule (2:17-18).ADRENAL GLANDS: No adrenal nodules.KIDNEYS: No hydronephrosis, stones or masses.PERITONEUM AND RETROPERITONEUM: No free air or fluid.LYMPH NODES: No lymphadenopathy.VESSELS: Unremarkable.GI TRACT: No abnormal bowel wall thickening or dilatation. Normalretrocecal appendix. Tiny sliding-type hiatal hernia with patulous distalesophagus.PELVIS/BLADDER: Urinary bladder is normal for the degree [...] reviewed this study and agree with theabove report.[facility] METABOLIC PANEL (NA, K, CL, CO2, GLUCOSE, BUN, CREATININE, CA)2020-02-25 03:12:00 Test Item Value Reference Range Interpretation Comments NA (test code = 135 mmol/L 135-145 1811250662) K (test code = 5.4 mmol/L 3.5-5 H 3956891433) CL (test code = 104 mmol/L 98-108 7911620629) CO2 TOTAL (test code = 24 mmol/L 23-31 3852784294) AGAP (test code = 2-16 5274342720) BUN (test code = 12 mg/dL 7-23 6657679219) GLUCOSE (test code = 102 mg/dL 70-110 1541365240) CREATININE (test code = 0.49 mg/dL 0.5-1.04 L 8932069726) CALCIUM (test code = 8.7 mg/dL 8.6-10.6 3200384290) eGFR Calculation mL/min/1.73m2 (Non-) (test code = 1821557413) eGFR Calculation mL/min/1.73m2 () (test code = 4979482878) HOWARD (test code = HOWARD) Association of Glomerular Filtration Rate (GFR) and Staging of Kidney Disease* + --+ --+ ------+| GFR (mL/min/1.73 m2) ?| With Kidney Damage ?| ?Without Kidney Damage+ --------+ --------+ +| ?>90 ?| ?Stage one ?| ? Normal ?+ ---+ ---+ -------+| ?60-89 ?| ?Stage two ?| ? Decreased GFR ? + --+ --+ ------+| ?30-59 ?| ?Stage three ?| ? Stage three ? + --+ --+ ------+| ?15-29 ?| ?Stage four ? | ? Stage four ?+ ---+ ---+ -------+| ?<15 (or dialysis) ? ?| ?Stage five ? | ? Stage five ?+ ---+ ---+ -------+ *Each stage assumes the associated GFR [...] or abnormalities in imaging tests). Lab Interpretation Abnormal (test code = 98164-6) [facility] WITH [id number] 03:02:00 Test Item Value Reference Range Interpretation Comments WBC (test code = See_Comment [Automated 8999-2) message] The sy stem which generated this result transmitted reference range : 4.30 - 11.10 10*3/?L. The reference range was not used to interpret this result as normal/abnormal . RBC (test code = See_Comment [Automated 803-8) message] The sy stem which generated this [...] RDW-SD (test code = 40.0 fL 39-49.9 10375-2) RDW-CV (test code = 13.7 % 12-15.5 788-0) PLT (test code = See_Comment [Automated 047-3) message] The sy stem which generated this result transmitted reference range : 166 - 358 10*3/ ?L. The reference r she was not used to interpret this result as normal/abnormal . MPV (test code = 10.4 fL 9.5-12.9 59426-7) NRBC/100 WBC (test See_Comment [Automat ed code = 1398622902) message] The system which generated this result transmitted reference range : 0.0 - 10.0 /100 WBCs. The refer ence range was not u sed to interpret th is result as normal/abnormal . NRBC x10^3 (test code <0.01 See_Comment [Auto mated = 3975302756) message] The s ystem which generated this result transmitted reference range : 10*3/?L. The reference range was not used to interpret this result as normal/abnormal . GRAN MAT (NEUT) % 66.7 % (test code = 770-8) IMM GRAN % (test code 1.10 % = 9176115127) LYMPH % (test code = 21.9 % 736-9) MONO % (test code = 6.7 % 5905-5) EOS % (test code = 3.0 % 713-8) BASO % (test code = 0.6 % 706-2) GRAN MAT x10^3(ANC) 4.65 10*3/uL 1.88-7.09 (test code = 1364986692) IMM GRAN x10^3 (test 0.08 10*3/uL 0-0.06 H code = 4510403029) LYMPH x10^3 (test code 1.53 10*3/uL 1.32-3.29 = 731-0) MONO x10^3 (test code 0.47 10*3/uL 0.33-0.92 = 742-7) EOS x10^3 (test code = 0.21 10*3/uL 0.03-0.39 711-2) BASO x10^3 (test code 0.04 10*3/uL 0.01-0.07 = 704-7) Lab Interpretation Abnormal (test code = 14858-0) [facility] Test Item Value Reference Range Interpretation Comments APPEARANCE (test code = Hazy Clear A 2890259526) COLOR (test code = Yellow Yellow 6915656158) PH (test code = 4.8-8.0 5582636543) SP GRAVITY (test code = 1.003-1.030 5136050166) GLU U QUAL (test code = Normal Normal 3276480698) BLOOD (test code = 1+ Negative A 6157790568) KETONES (test code = Negative Negative 1916067990) PROTEIN (test code = Negative Negative 2887-8) UROBILIN (test code = Normal Normal 8268847392) BILIRUBIN (test code = Negative Negative 3758612282) NITRITE (test code = Negative Negative 9413995919) LEUK KLEBER (test code = Negative Negative 9079345605) RBC/HPF (test code = See_Comment H [Autom ated message] 4221706667) The system [employer] generated this result transmitted ref erence range: 0 - 3 HP F. The reference range was not used to int erpret this result as normal/abnormal . WBC/HPF (test code = See_Comment [Autom ated message] 0794268293) The system [employer] generated this result transmitted ref erence range: 0 - 5 HP F. The reference range was not used to int erpret this result as normal/abnormal . BACTERIA (test code = Negative Negative 6137913553) SQ EPITH (test code = HPF 2432474296) Lab Interpretation (test Abnormal code = 11232-8) [id number] 01:31:00 Test Item Value Reference Range Interpretation Comments POCT PREG (test code = 1605) Negative On board controls acceptable with Present C Line (test code = 3574) POCT PREG LOT # (test code = 3575) [id number] POCT PREG TEST DATE (test 04/26/2021 code = 3576) Lab Interpretation (test code = Normal 30934-0) [facility]"
[2023-04-30 23:06] LABS: Absolute Lymphocytes (CBC) 2.3 K/uL (0.7-4.9); Hematocrit 32.4 % (36.0-45.0); Lymphocytes % 27.7 % (15.3-44.8); MCV 73.7 fL (80-100); MPV 8.6 fL (7.6-11.3); Platelets 291 thou/uL (152-406); RBC Red Blood Cell Count 4.39 M/uL (3.86-4.86)
[2023-04-30] MEDS ORDERED: MAGNESIUM SULFATE 1 gm IVPB 1 GM/100 ML BAG IV ONE (23:09)
[2023-04-30] MEDS ORDERED: ALBUTEROL 2.5 MG/3 ML NEB SOL ONE (23:09)
[2023-04-30] MEDS ORDERED: NA CHLORIDE 0.9% 1,000 ML ONE (23:09)
[2023-04-30 23:24] LABS: Potassium 3.5 mEq/L (3.5-5.1)
[2023-04-30 23:45] LABS: Specific Gravity 1.028 (1.005-1.030)
--- NOTE | 2023-05-01 01:00 | EDPHYS ---
Physician Documentation [facility] Name: Kacie Naqvi Age: 37 yrs Sex: Female : 1985 Arrival Date: 04/30/2023 Time: 22:45 Bed 16 Private MD: ED Physician Emory Johnson HPI: 04/30 23:12 This 37 yrs old Female presents to ER via EMS with complaints of asthma attack.kb 23:12 The patient presents to the emergency department with wheezing, Current therapy: None, kb the patient was reported to have audible wheezing, trouble breathing. Onset: The symptoms/episode began/occurred today. Modifying factors: The symptoms are alleviated by nothing, the symptoms are aggravated by nothing. Associated signs and symptoms: Pertinent positives: fever. Severity of symptoms: At their worst the symptoms were moderate in the emergency department the symptoms are unchanged. The patient has not experienced similar symptoms in the past. The patient has not recently seen a physician. EMS reports they were toned for pt having an asthma attack. 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 Has used daughters inhaler without relief. EMS reports O2 sat 88% on room air upon their arrival. A\T\A treatment and solumedrol given in route. Historical: - Allergies: 22:53 No Known Allergies; ha1 - PMHx: 22:53 Anxiety; Asthma; Depression; ha1 - Immunization history:: Adult Immunizations unknown. - Social history:: Smoking status: unknown. ROS: 23:08 Abdomen/GI: Negative for abdominal pain, nausea, vomiting, diarrhea, and constipation, kb 23:08 Constitutional: Positive for fever, 23:08 Respiratory: Positive for cough, shortness of breath, wheezing, 23:08 All other systems are negative, Exam: 23:08 Constitutional: This is a well developed, well nourished patient who is awake, alert, kb and in no acute distress. Head/Face: Normocephalic, atraumatic. ENT: Moist Mucous membranes Cardiovascular: Regular rate Abdomen/GI: Soft, non-tender. No distention Skin: Warm, dry with normal turgor. Normal color. MS/ Extremity: Pulses equal, no cyanosis. Neurovascular intact. Full, normal range of motion. Neuro: Awake and alert, GCS 15, oriented to person, place, time, and situation. Moves all extremities. Normal gait. 23:08 Respiratory: mild respiratory distress is noted, Respirations: labored breathing, that is mild, Breath sounds: wheezing: expiratory that is moderate, is scattered, Vital Signs: 22:51 BP 105 / 73; Pulse 129; Resp 20 S; Temp 99; Pulse Ox 97% on R/A; Weight 61.23 kg; ha1 Height 5 ft. 4 in. ; 23:16 BP 116 / 72; Pulse 117; Resp 20 S; Pulse Ox 97% on R/A; ha1 05/01 00:15 BP 120 / 80; Pulse 108; Resp 18 S; Pulse Ox 98% on R/A; ha1 00:45 BP 113 / 73; Pulse 109; Resp 19 S; Pulse Ox 97% on R/A; ha1 01:22 BP 121 / 76; Pulse 101; Resp 16 S; Pulse Ox 97% on R/A; ha1 04/30 22:51 Body Mass Index 23.17 (61.23 kg, 162.56 cm) ha1 MDM: 04/30 22:49 Patient medically screened. kb 23:10 Differential diagnosis: asthma, Bronchitis pneumonia, Pulmonary Embolism flu, covid. kb Data reviewed: vital signs, nurses notes. 05/01 00:58 Historians other than the Patient: EMS: [facility]. Counseling: I had a detailed kb discussion with the patient and/or guardian regarding the historical points, exam findings, and any diagnostic results supporting the discharge/admit diagnosis, lab results, radiology results, the need for outpatient follow up, a family practitioner, to return to the emergency department if symptoms worsen or persist or if there are any questions or concerns that arise at home. 00:58 ED course: Resp even and unlabored. Lungs clear. Oxygen 97% on room air. Pt resting kb comfortably. Stable for discharge. Agrees with outpatient follow up. 04/30 22:50 Order name: CBC with Diff; Complete Time: 23:16 kb 04/30 22:50 Order name: Basic Metabolic Panel; Complete Time: 23:24 kb 04/30 22:50 Order name: Flu; Complete Time: 23:37 kb 04/30 22:50 Order name: COVID-19 SARS RT PCR; Complete Time: 23:37 kb 04/30 22:50 Order name: D-Dimer; Complete Time: 23:16 kb 04/30 23:33 Order name: Test, Urine; Complete Time: 23:46 ha1 04/30 22:50 Order name: Chest Single View XRAY kb 04/30 23:16 Order name: CT Chest For PE Angio kb 04/30 22:50 Order name: IV Start; Complete Time: 22:50 kb Administered Medications: 04/30 23:00 Drug: NS 0.9% IV 1000 ml IV at 1000 ml once Route: IV; Rate: 1000 ml; Site: left ha1 antecubital; 05/01 01:24 Follow up: Response: No adverse reaction; IV Status: Completed infusion; IV Intake: ha1 1000ml 04/30 23:00 Drug: Magnesium Sulfate IVPB 1 grams IVPB once over 1 hrs Route: IVPB; Infused Over: 1 ha1 hrs; Site: left antecubital; 05/01 00:30 Follow up: Response: No adverse reaction; IV Status: Completed infusion; IV Intake: ha1 100ml 04/30 23:00 Drug: Albuterol Inhalation 2.5 mg Inhalation once Route: Inhalation; ha1 05/01 01:23 Follow up: Response: No adverse reaction ha1 Disposition: 00:08 Co-signature as Attending Physician, Emory Johnson MD I agree with the assessment sp4 and plan of care. I reviewed the patient's care provided by the Advanced Practice Provider and agree with the diagnosis and treatment plan. Disposition Summary: 05/01/23 00:59 Discharge Ordered Notes: Location: Home kb Condition: Stable kb Diagnosis - Unspecified asthma with (acute) exacerbation kb Followup: kb - With: Emergency Department - When: As needed - Reason: Worsening of condition Followup: kb - With: Private Physician - When: 2 - 3 days - Reason: Recheck today's complaints, Continuance of care, Re-evaluation by your physician Discharge Instructions: - Discharge Summary Sheet kb - Asthma, Adult, [id number] kb Forms: - Medication Reconciliation Form kb - Thank You Letter kb - Antibiotic Education kb - Prescription Opioid Use kb - Patient Portal Instructions kb - Leadership Thank You Letter kb Prescriptions: - albuterol sulfate 90 mcg/actuation Inhalation HFA Aerosol Inhaler - inhale 2 puff INHALATION route every 4 to 6 hours As needed; 1 unit; Refills: kb 0, Product Selection Permitted - Prednisone 20 mg Oral Tablet - take 1 tablet ORAL route once daily for 5 days; 5 tablet; Refills: 0, Product kb Selection Permitted - Albuterol Sulfate 2.5 mg /3 mL (0.083 %) Inhalation Solution for Nebulization - inhale 1 unit NEBULIZATION route every 8 hours As needed dispense one box; 1 kb unit; Refills: 0, Product Selection Permitted Signatures: Dispatcher [employer] Pam Whipple, Linda Ortiz RN RN ha1 Emory Johnson MD MD sp4
--- NOTE | 2023-05-01 01:00 | ER ---
Nurse's Notes [facility] Name: Kacie Naqvi Age: 37 yrs Sex: Female : 1985 Arrival Date: 04/30/2023 Time: 22:45 Bed 16 Private MD: Diagnosis: Unspecified asthma with (acute) exacerbation Presentation: 04/30 22:51 Chief complaint: EMS states: 37 year old female reports having shortness of breath due ha1 to asthma exacerbation. On our arrival oxygen saturation at 88 % in room air. we gave a breathing treatment and 125 mg of Solu-Medrol were administered IV. Coronavirus screen: Vaccine status:. Ebola Screen: No symptoms or risks identified at this time. Initial Sepsis Screen: Does the patient meet any 2 criteria? No. Patient's initial sepsis screen is negative. Does the patient have a suspected source of infection? No. Patient's initial sepsis screen is negative. Risk Assessment: Do you want to hurt yourself or someone else? Patient reports no desire to harm self or others. Onset of symptoms was April 30, 2023. 22:51 Method Of Arrival: EMS: [facility] ha1 22:51 Acuity: DEIRDRE 3 ha1 Triage Assessment: 22:49 General: Appears uncomfortable, Behavior is calm, cooperative. Pain: Denies pain. ha1 Neuro: Level of Consciousness is awake, alert, obeys commands, Oriented to person, place, time, situation. Cardiovascular: Patient's skin is warm and dry. Respiratory: Airway is patent Respiratory effort is even, unlabored, Respiratory pattern is regular, symmetrical. Respiratory: Reports shortness of breath at rest cough that is dry, since two weeks Breath sounds with wheezes bilaterally. GI: No signs and/or symptoms were reported involving the gastrointestinal system. : No signs and/or symptoms were reported regarding the genitourinary system. Musculoskeletal: Circulation, motion, and sensation intact. Range of motion: intact in all extremities. Historical: - Allergies: 22:53 No Known Allergies; ha1 - PMHx: 22:53 Anxiety; Asthma; Depression; ha1 - Immunization history:: Adult Immunizations unknown. - Social history:: Smoking status: unknown. Screenin:49 [facility] ED Fall Risk Assessment (Adult) History of falling in the last 3 months, ha1 including since admission No falls in past 3 months (0 pts) Confusion or Disorientation No (0 pts) Intoxicated or Sedated No (0 pts) Impaired Gait No (0 pts) Mobility Assist Device Used No (0 pt) Altered Elimination No (0 pt) Score/Fall Risk Level 0 - 2 = Low Risk Oriented to surroundings, Maintained a safe environment, Educated pt \T\ family on fall prevention, incl call for assistance when getting out of bed, Hourly rounding (assess needs \T\ fall precautionary measures) done. Abuse screen: Denies threats or abuse. Denies injuries from another. Nutritional screening: No deficits noted. Tuberculosis screening: No symptoms or risk factors identified. Assessment: 22:49 Reassessment: see triage assessment. [facility] 23:50 Reassessment: Patient and/or family updated on plan of care and expected duration. Pain ha1 level reassessed. Patient is alert, oriented x 3, equal unlabored respirations, skin warm/dry/pink. Patient denies pain at this time. Patient states feeling better. Patient states symptoms have improved. 05/01 00:50 Reassessment: Patient and/or family updated on plan of care and expected duration. Pain ha1 level reassessed. Patient is alert, oriented x 3, equal unlabored respirations, skin warm/dry/pink. Patient denies pain at this time. Patient states feeling better. Patient states symptoms have improved. Vital Signs: 04/30 22:51 BP 105 / 73; Pulse 129; Resp 20 S; Temp 99; Pulse Ox 97% on R/A; Weight 61.23 kg; 1 Height 5 ft. 4 in. ; 23:16 BP 116 / 72; Pulse 117; Resp 20 S; Pulse Ox 97% on R/A; ha1 05/01 00:15 BP 120 / 80; Pulse 108; Resp 18 S; Pulse Ox 98% on R/A; ha1 00:45 BP 113 / 73; Pulse 109; Resp 19 S; Pulse Ox 97% on R/A; ha1 01:22 BP 121 / 76; Pulse 101; Resp 16 S; Pulse Ox 97% on R/A; ha1 04/30 22:51 Body Mass Index 23.17 (61.23 kg, 162.56 cm) [facility] ED Course: 04/30 22:49 Patient arrived in ED. kb 22:49 [facility] kb 22:49 Emory Johnson MD is Attending Physician. kb 22:49 Patient has correct armband on for positive identification. Placed in gown. Bed in low ha1 position. Call light in reach. Side rails up X 1. Adult w/ patient. 22:49 Arm band placed on right wrist. ha1 22:50 Linda Garcia RN is Primary Nurse. ha1 22:53 Triage completed. ha1 23:01 D-Dimer Sent. bc6 23:01 COVID-19 SARS RT PCR Sent. bc6 23:01 Flu Sent. bc6 23:01 Basic Metabolic Panel Sent. bc6 23:01 CBC with Diff Sent. bc6 23:11 D-Dimer Sent. ha1 23:11 COVID-19 SARS RT PCR Sent. ha1 23:11 Flu Sent. ha1 23:11 Basic Metabolic Panel Sent. ha1 23:11 CBC with Diff Sent. ha1 23:17 Maintain EMS IV. Dressing intact. Good blood return noted. Site clean \T\ dry. Gauge \T\ siddiqui 1 site: 20 whitney left AC. 23:18 Radiology exam delayed due to test not completed at this time. 4 23:31 Chest Single View XRAY In Process Unspecified. EDMS 05/01 00:18 CT Chest For PE Angio In Process Unspecified. EDMS 01:25 No provider procedures requiring assistance completed. IV discontinued, intact, ha1 bleeding controlled, No redness/swelling at site. Pressure dressing applied. 01:25 Provided Education on: medication administration . ha1 Administered Medications: 04/30 23:00 Drug: NS 0.9% IV 1000 ml IV at 1000 ml once Route: IV; Rate: 1000 ml; Site: left ha1 antecubital; 05/01 01:24 Follow up: Response: No adverse reaction; IV Status: Completed infusion; IV Intake: ha1 1000ml 04/30 23:00 Drug: Magnesium Sulfate IVPB 1 grams IVPB once over 1 hrs Route: IVPB; Infused Over: 1 ha1 hrs; Site: left antecubital; 05/01 00:30 Follow up: Response: No adverse reaction; IV Status: Completed infusion; IV Intake: ha1 100ml 04/30 23:00 Drug: Albuterol Inhalation 2.5 mg Inhalation once Route: Inhalation; ha1 05/01 01:23 Follow up: Response: No adverse reaction ha1 Medication: 00:54 VIS not applicable for this client. ha1 Intake: 00:30 IV: 100ml; Total: 100ml. ha1 01:24 IV: 1000ml; Total: 1100ml. ha1 Outcome: 00:59 Discharge ordered by . gurpreet 01:25 Discharged to home ambulatory, with family, ha1 01:25 Condition: stable 01:25 Discharge instructions given to patient, family, Instructed on discharge instructions, follow up and referral plans. medication usage, Demonstrated understanding of instructions, follow-up care, medications, Prescriptions given X 3, 01:26 Patient left the ED. ha1 Signatures: Dispatcher [employer] EDMS Pam Katz, SIDE DOOR MAN-C RONNIE-Linda Loja RN RN ha1 Obi Cheung 4 Odilia Hazel 6 Corrections: (The following items were deleted from the chart) 04/30 23:13 22:51 Chief complaint: EMS states: 37 year old female reports having shortness of ha1 breath due to asthma exacerbation. On our arrival oxygen saturation at 88 in room air. ha1
[2023-05-01 01:32] VITALS: TEMP 99
[2023-05-01 01:35] VITALS: O2SAT 97
[2023-05-01 01:36] VITALS: BP 121/76
--- NOTE | 2023-05-01 16:17 | RAD REPORT ---
EXAM DESCRIPTION: CT - Chest For Pe Angio - 05/01/2023 5:59 am CLINICAL HISTORY: DYSPNEA TECHNIQUE: Contiguous axial images obtained through the chest during angiographic phase following th e uneventful administration of IV contrast. Sagittal and coronal reformatted images were provided. 3- D MIP reformatted images were provided. This exam was performed according to our departmental dose-optimization program, which includes autom ated exposure control, adjustment of the mA and/or kV according to patient size and/or use of iterati ve reconstruction technique. COMPARISON: No prior exams provided for comparison. FINDINGS: Diagnostic quality: There is adequate opacification of the pulmonary arterial tree. Lungs: No focal consolidation. Airways are patent. Pleura: No effusion. No pneumothorax. Heart and pericardium: The heart is normal in size. No pericardial effusion. Mediastinum and brock: No pathologically enlarged lymph nodes. Lower neck and chest wall: Unremarkable Vessels: No pulmonary arterial filling defects. No thoracic aortic aneurysm. Upper abdomen: Unremarkable Bones: Unremarkable IMPRESSION: 1. No pulmonary embolic disease. 2. No acute cardiopulmonary disease. Electronically signed by: Dany Davis MD 05/01/2023 12:49 AM CDT Due to temporary technical issues with the PACS/Fluency reporting system, reports are being signed by the in house radiologists without review as a courtesy to insure prompt reporting. The interpreting radiologist is fully responsible for the content of the report.
--- NOTE | 2023-05-01 16:18 | RAD REPORT ---
EXAM DESCRIPTION: RAD - Chest Single View - 04/30/2023 11:29 pm EXAM: XR Chest, 1 View CLINICAL HISTORY: The patient is 37 years old and is Female; DYSPNEA TECHNIQUE: Frontal view of the chest. COMPARISON: No relevant prior studies available. FINDINGS: Lungs: Prominent interstitial markings which may indicate mild interstitial edema. No co nsolidation. Pleural space: Unremarkable. No pneumothorax. Heart: Unremarkable. Mediastinum: Unremarkable. Bones/joints: No acute findings. IMPRESSION: Prominent interstitial markings which may indicate mild interstitial edema. No consolida tion. Electronically signed by: Chad Lopez MD 04/30/2023 11:44 PM CDT Due to temporary technical issues with the PACS/Fluency reporting system, reports are being signed by the in house radiologists without review as a courtesy to insure prompt reporting. The interpreting radiologist is fully responsible for the content of the report.
== END 2023-05-01 01:26 | disposition home or self-care (01) ==
LOC: ER 22:45
DX: J45.901 Unspecified asthma with (acute) exacerbation (principal); Z20.822 Contact with and (suspected) exposure to COVID-19
CPT/HCPCS: 96365; 96361; 85025; 80048; 36415; 81025; 85379; 87635; 87804 ×2; 71275; 71045; 99285; Q9967; J3475; J7613; J7030